=== PATIENT | female | born 1985 | race Caucasian/White ===

== ENCOUNTER 2016-09-29 15:24 | Emergency (ER) | payer SELFPAY ==
[2016-09-29 15:30] VITALS: BP 138/96
--- NOTE | 2016-09-29 16:40 | ER Document Report ---
ED GI/ - General Chief Complaint: Urinary Frequency Stated Complaint: URINARY ISSUE Notes: Patient is a 31-year-old female who presents with 2 days of burning during urination. She is 37 weeks by ultrasound and has had no care for this fetus. She plans to give the baby up for adoption, but is requesting a note that she is . She denies leakage of fluid, vaginal bleeding, flank pain, nausea, vomiting, headache, rash, fevers or abdominal pain. TRAVEL OUTSIDE OF THE [place] IN LAST 30 DAYS: No - Related Data Allergies/Adverse Reactions: No Known Allergies Allergy (Unverified 02/23/11 23:30) Past Medical History - General Information source: Patient - Social History Smoking Status: Unknown if Ever Smoked Family History: Reviewed & Not Pertinent Patient has suicidal ideation: No Patient has homicidal ideation: No Renal/ Medical History: Denies: Hx Peritoneal Dialysis Review of Systems - Review of Systems Notes: REVIEW OF SYSTEMS: CONSTITUTIONAL: -fevers, -chills EENT: -eye pain, -difficulty swallowing, -nasal congestion CARDIOVASCULAR:-chest pain, -syncope. RESPIRATORY: -cough, -SOB GASTROINTESTINAL: -abdominal pain, - nausea, -vomiting, -diarrhea GENITOURINARY: +dysuria, -hematuria MUSCULOSKELETAL: -back pain, -neck pain SKIN: -rash or skin lesions. HEMATOLOGIC: -easy bruising or bleeding. LYMPHATIC: -swollen, enlarged glands. NEUROLOGICAL: -altered mental status or loss of consciousness, -headache, - neurologic symptoms PSYCHIATRIC: -anxiety, -depression. ALL OTHER SYSTEMS REVIEWED AND NEGATIVE. Physical Exam - Vital signs Vitals: Temp Pulse Resp BP Pulse Ox 98.1 F 83 18 138/96 H 99 09/29/16 15:29 09/29/16 15:29 09/29/16 15:29 09/29/16 15:29 09/29/16 15:29 - Notes Notes: PHYSICAL EXAMINATION: GENERAL: Well-appearing, well-nourished and in no acute distress. HEAD: Atraumatic, normocephalic. EYES: Pupils equal round and reactive to light, extraocular movements intact, sclera anicteric, conjunctiva are normal. ENT: nares patent, oropharynx clear without exudates. Moist mucous membranes. NECK: Normal range of motion, supple without lymphadenopathy LUNGS: Breath sounds clear to auscultation bilaterally and equal. No wheezes rales or rhonchi. HEART: Regular rate and rhythm without murmurs ABDOMEN: Gravid abdomen, soft, nontender, normoactive bowel sounds. No guarding , no rebound. No masses appreciated. EXTREMITIES: Normal range of motion, no pitting or edema. No cyanosis. NEUROLOGICAL: Cranial nerves grossly intact. Normal speech, normal gait. Normal sensory, motor, and reflex exams. PSYCH: Normal mood, normal affect. SKIN: Warm, Dry, normal turgor, no rashes or lesions noted. Course - Re-evaluation Re-evalutation: Bedside ultrasound shows a single IUP consistent with estimated age. No abdominal tenderness, contractions, leakage of fluid or bleeding. With her dysuria and 30 wbc's on her urinalysis, will treat for presumed UTI. Given strict return precautions and told her to follow-up with OB. - Vital Signs Vital signs: Temp Pulse Resp BP Pulse Ox 98.1 F 81 18 138/96 H 98 09/29/16 15:43 09/29/16 15:43 09/29/16 15:43 09/29/16 15:43 09/29/16 15:43 - Laboratory Laboratory results interpreted by me: 09/29/16 17:18 Urine Ketones TRACE H Ur Leukocyte Esterase SMALL H Procedures - Ultrasound/Bedside Ultrasound/Bedside Time completed: 16:41 Ultrasound: Normal Notes: Single IUP with FHR 142, + movement Discharge - Discharge Clinical Impression: UTI (urinary tract infection) Qualifiers: Urinary tract infection type: site unspecified Hematuria presence: without hematuria Qualified Code(s): N39.0 - Urinary tract infection, site not specified Qualifiers: Weeks of gestation: 37 weeks Qualified Code(s): Z3A.37 - 37 weeks gestation of Condition: Good Disposition: HOME, SELF-CARE Additional Instructions: You are with an estimated gestational age of [id number] and must follow-up with OB. Take the full course antibiotics for your UTI. URINARY TRACT INFECTION: Your evaluation indicates that you have a urinary tract infection. This is due to germs growing in the bladder. This is a common problem. This infection usually responds quickly to antibiotics. Your antibiotic should be taken exactly as prescribed. Drink plenty of fluids -- three to four quarts a day. Occasionally, a bladder anesthetic will be prescribed to help stop the feeling of urgency until the antibiotic has a chance to clear the infection. This may cause your urine to be dark orange. Certain urine infections require a culture. If the doctor obtained a culture, the results will be back in two days. You should call to see if a change in treatment is needed. A repeat urinalysis after you finish treatment is often recommended. The physician will let you know if further testing is required. Call the doctor if you develop fever, chills, flank pain, inability to urinate, or blood in the urine. ANTIBIOTIC THERAPY: You have been given an antibiotic prescription. It's important that you take all the medication, unless instructed otherwise by your physician. Failure to complete the entire course can result in relapse of your condition. Common side effects of antibiotics include nausea, intestinal cramping, or diarrhea. Women may develop vaginal yeast infections, and babies can get yeast (thrush) in the mouth following the use of antibiotics. Contact your physician if you develop significant side effects from this medication. Allergy to this antibiotic can result in hives, wheezing, faintness, or itching. If symptoms of allergy occur, stop the medication and call the doctor. NITROFURANTOIN (MACRODANTIN, MACROBID): You have received a prescription for nitrofurantoin (Macrodantin). This antibiotic is used for urinary tract infections. Women who are or nursing should notify the physician before taking this medicine. If you have ever had a problem caused by this medication in the past, be sure the physician is aware of it. Common side effects of this medicine include nausea, vomiting, or decreased appetite. Notify your physician if these side effects become severe. Immediately stop this medicine and call the physician if you develop cough , shortness of breath, chest pain, weakness, jaundice (yellow color of the skin and whites of the eyes), or a skin rash. FOLLOW-UP CARE: If you have been referred to a physician for follow-up care, call the physician s office for an appointment as you were instructed or within the next two days. If you experience worsening or a significant change in your symptoms, notify the physician immediately or return to the Emergency Department at any time for re-evaluation. Prescriptions: Nitrofurantoin/Nitrofuran Mac [Macrobid 100 mg Capsule] 1 tab PO BID #10 capsule Referrals: MATIAS JARA MD [ACTIVE STAFF] - Follow up as needed
[2016-09-29 17:50] LABS: APPEARANCE,URINE SLIGHTLY-CLOUDY; BILIRUBIN,URINE NEGATIVE (NEGATIVE); GLUCOSE, URINE NEGATIVE (NEGATIVE); KETONES,URINE TRACE mg/dL (NEGATIVE); LEUKOCYTE ESTERASE,URINE SMALL (NEGATIVE); NITRITE,URINE NEGATIVE (NEGATIVE); PROTEIN,URINE NEGATIVE (NEGATIVE); UROBILINOGEN,URINE NEGATIVE mg/dL (<2.0)
== END 2016-09-29 18:00 | disposition home or self-care (01) ==
LOC: ER 15:24
DX: O23.43 Unspecified infection of urinary tract in pregnancy, third trimester (principal); R35.0 Frequency of micturition; R30.0 Dysuria; O09.33 Supervision of pregnancy with insufficient antenatal care, third trimester; Z3A.31 31 weeks gestation of pregnancy
CPT/HCPCS: 81001; 99283

== ENCOUNTER 2016-10-08 10:53 | Inpatient (IN) | payer SELFPAY ==
[2016-10-08] MEDS ORDERED: RINGERS SOLUTION,LACTATED 1,000 ML IV PRN ×2 (12:00→14:23)
[2016-10-08] MEDS ORDERED: ONDANSETRON HCL INJ/PF 4 MG/2 ML SDV IV ONE (12:02)
[2016-10-08 12:04] LABS: AMORPHOUS SEDIMENT,URINE TRACE /HPF; APPEARANCE,URINE TURBID; BILIRUBIN,URINE NEGATIVE (NEGATIVE); GLUCOSE, URINE NEGATIVE (NEGATIVE); KETONES,URINE NEGATIVE (NEGATIVE); LEUKOCYTE ESTERASE,URINE MODERATE (NEGATIVE); NITRITE,URINE NEGATIVE (NEGATIVE); PROTEIN,URINE NEGATIVE (NEGATIVE); URINE SPECIFIC GRAVITY 1.011; UROBILINOGEN,URINE NEGATIVE mg/dL (<2.0)
[2016-10-08 12:09] LABS: AMNISURE (ROM) NEGATIVE (NEGATIVE)
[2016-10-08 12:10] LABS: ABSOLUTE EOSINOPHILS # (AUTO) 0.1 10^3/uL (0.0-0.6); ABSOLUTE MONOCYTES (AUTO) 1.1 10^3/uL (0.1-1.4); ABSOLUTE NEUT (AUTO) 7.6 10^3/uL (1.7-8.2); BASOPHILS % (AUTO) 0.5 % (0-2); EOSINOPHILS % (AUTO) 1.1 % (0-6); HEMATOCRIT 32.7 % (36.0-47.0); HEMOGLOBIN 11.1 g/dL (12.0-15.5); HGB HCT DIFFERENCE 0.6; LYMPHOCYTES % (AUTO) 17.9 % (13-45); MEAN CORPUSCULAR HEMOGLOBIN 27.3 pg (27.0-33.4); MEAN CORPUSCULAR HGB CONC 33.8 g/dL (32.0-36.0); MEAN CORPUSCULAR VOLUME 81 fl (80-97); MONOCYTES % (AUTO) 10.2 % (3-13); RED BLOOD COUNT 4.04 10^6/uL (3.72-5.28); RED CELL DISTRIBUTION WIDTH 17.1 % (11.5-14.0); SEGMENTED NEUTROPHILS % (AUTO) 70.3 % (42-78); WHITE BLOOD COUNT 10.9 10^3/uL (4.0-10.5)
[2016-10-08] MEDS ORDERED: ONDANSETRON HCL INJ/PF 4 MG/2 ML SDV ONE (12:17)
[2016-10-08 12:20] LABS: URINE BARBITURATES SCREEN NEGATIVE; URINE METHADONE SCREEN NEGATIVE; URINE OPIATES LOW NEGATIVE; URINE PHENCYCLIDINE SCREEN NEGATIVE
[2016-10-08 12:56] LABS: ALCOHOL < 10 mg/dL (NONE DETECTED); RUBELLA IGG ANTIBODY 3.48 IU/mL
[2016-10-08 13:07] LABS: ALANINE AMINOTRANSFERASE 26 U/L (9-52); ALBUMIN 2.7 g/dL (3.5-5.0); ALKALINE PHOSPHATASE 261 U/L (38-126); ANION GAP 10 (5-19); ASPARTATE AMINO TRANSFERASE 23 U/L (14-36); BILIRUBIN,DIRECT 0.1 mg/dL (0.0-0.4); BILIRUBIN,TOTAL 0.4 mg/dL (0.2-1.3); BLOOD UREA NITROGEN 10 mg/dL (7-20); CALCIUM 9.6 mg/dL (8.4-10.2); CARBON DIOXIDE 20 mmol/L (22-30); CHLORIDE 106 mmol/L (98-107); CREATININE RESULT 0.59 mg/dL (0.52-1.25); GLUCOSE 78 mg/dL (75-110); POTASSIUM 4.2 mmol/L (3.6-5.0); SODIUM 135.8 mmol/L (137-145); TOTAL PROTEIN 5.5 g/dL (6.3-8.2)
[2016-10-08] MEDS ORDERED: OXYTOCIN/NORMAL SALINE 1,000 ML IV PRN ×2 (14:23→21:12)
[2016-10-08] MEDS ORDERED: PENICILLIN G POTASSIUM 5,000,000 UNIT in DEXTROSE 5%-WATER 100 ML IV ONE (14:25)
[2016-10-08 14:30] LABS: CHLAM PCR NOT DETECTED (NOT DETECT)
--- NOTE | 2016-10-08 14:57 | L&D Progress Notes ---
PROGRESS NOTES Datetime Report Generated by CPN: 10/08/2016 14:57 PROGRESS NOTE Comment: lab notified RN of + tania tx with 250 mg rocephin IM and 1g azithro PO VAGINAL EXAM Dilatation: 2 Effacement: 90 Station: -2 Contractions: irregular MEMBRANES Membranes: Intact FETUS A Estimated Weight (gm): 2240 Presentation: Vertex SIGNATURE SIGNATURE: [id number] Assignment: Radha Horowitz MD Signature: with User ID: Kameron : with User ID: [email or web address]
[2016-10-08] MEDS ORDERED: CEFTRIAXONE INJ 250 MG VIAL IM ONE (15:18)
[2016-10-08] MEDS ORDERED: AZITHROMYCIN INJ 500 MG VIAL IV ONE ×3 (15:18→19:00)
[2016-10-08] MEDS ORDERED: OXYTOCIN/NORMAL SALINE 0 UNIT/0 ML RTUINJ ONE (15:25)
[2016-10-08] MEDS ORDERED: PENICILLIN G-K 5 MILLION UNIT VIAL ONE ×2 (15:25→19:52)
[2016-10-08] MEDS ORDERED: CEFTRIAXONE INJ 1000 MG VIAL ONE (15:25)
[2016-10-08] MEDS ORDERED: LIDOCAINE 1% INJ-PF (10 MG/ML) 30 ML SDV ONE ×2 (15:36→17:50)
[2016-10-08] MEDS ORDERED: MISOPROSTOL 0.2 MG TABLET ONE (17:50)
[2016-10-08] MEDS ORDERED: OXYTOCIN/NORMAL SALINE 20 UNIT/1,000 ML RTUINJ ONE (17:50)
--- NOTE | 2016-10-08 18:02 | L&D General Admission ---
General Admit Datetime Report Generated by CPN: 10/08/2016 18:00 INFORMATION Patient Age: 31 (10/08/2016 10:53:QS system process) EDC: 10/14/2016 00:00 (10/08/2016 11:11:Madhavi Blackman RN) : 1 (10/08/2016 11:11:Madhavi Blackman RN) Para: 0 (10/08/2016 11:11:Madhavi Blackman RN) Term: 0 (10/08/2016 11:11:Madhavi Blackman RN) : 0 (10/08/2016 11:11:Madhavi Blackman RN) Spontaneous Abortions: 0 (10/08/2016 11:11:Madhavi Blackman RN) Induced Abortions: 0 (10/08/2016 11:11:Madhavi Blackman RN) Livin (10/08/2016 11:11:Madhavi Blackman RN) Cesareans: 0 (10/08/2016 11:11:Madhavi Blackman RN) VBACs: 0 (10/08/2016 11:11:Madhavi Blackman RN) Ectopic: 0 (10/08/2016 11:11:Madhavi Blackman RN) Multiple Births: 0 (10/08/2016 11:11:Madhavi Blackman RN) Baby, Number in Womb: 0 (10/08/2016 11:11:Madhavi Blackman RN) CARE Primary Professor Of Biblical Studies: Other-Annotate (10/08/2016 11:11:Madhavi Blackman RN) Professor Of Biblical Studies Other: No care (10/08/2016 11:11:Madhavi Blackman RN) Adequate Care: No (10/08/2016 11:11:Madhavi Blackman RN) Height (in): 61 (10/08/2016 15:55:QS system process) ALLERGIES Medication Allergy: No (10/08/2016 11:11:Madhavi Blackman RN) Medication Allergies: No Known Allergies (02/23/2011) (10/08/2016 10:53:QS system process) Latex Allergy: No Latex Allergies (10/08/2016 11:11:Madhavi Blackman RN) COMMUNICATION Primary Language: Slovenian (10/08/2016 11:11:Madhavi Blackman RN) Medical Tx Preferred Language: Slovenian (10/08/2016 11:11:Madhavi Blackman RN) DEMOGRAPHICS Address: [address] [place] [id number] (10/08/2016 10:53:QS system process) Zipcode: [id number] (10/08/2016 10:53:QS system process) Home (10/08/2016 10:53:QS system process) SSN: [id number] (10/08/2016 10:53:QS system process) Next of Kin Name: DECLINED PT (10/08/2016 10:53:QS system process) Next of Kin (10/08/2016 10:53:QS system process) Next of Kin Relationship: OR (10/08/2016 10:53:QS system process) Date of : 1985 (10/08/2016 10:53:QS system process) Marital Status: Single (10/08/2016 10:53:QS system process) Sex: Female (10/08/2016 10:53:QS system process) Race: (10/08/2016 10:53:QS system process) Ethnicity: Non- or (10/08/2016 10:53:QS system process) Methodist: None (10/08/2016 10:53:QS system process) DRUG AND ALCOHOL USE Alcohol: Yes (10/08/2016 11:11:Madhavi Blackman RN) Average Alcohol Consumption: <2 per day (10/08/2016 11:11:Madhavi Blackman RN) Advised to Stop Alcohol: Yes (10/08/2016 11:11:Madhavi Blackman RN) Alcohol Comments: Pt states she had a beer last night (10/08/2016 11:11:Madhavi Blackman RN) Cigarettes: Current Everyday Smoker. [id number] (10/08/2016 11:11:Madhavi Blackman RN) Average Cigarettes Smoked: > 10 per day (10/08/2016 11:11:Madhavi Blackman RN) Advised to Stop Smoking: Yes (10/08/2016 11:11:Madhavi Blackman RN) Marijuana: No (10/08/2016 11:11:Madhavi Blackman RN) Cocaine: No (10/08/2016 11:11:Madhavi Blackman RN) Other Illicit Drugs: No (10/08/2016 11:11:Madhavi Blackman RN) VACCINE HISTORY Influenza Vaccine: No (10/08/2016 11:11:Madhavi Blackman RN) Pneumococcal Vaccine: No (10/08/2016 11:11:Madhavi Blackman RN) Tetanus Vaccine: Yes (10/08/2016 11:11:Madhavi Blackman RN) Tdap Vaccine: No (10/08/2016 11:11:Madhavi Blackman RN) Hepatitis B Vaccine: Yes (10/08/2016 11:11:Madhavi Blackman RN) Pain Management Plans: Epidural (10/08/2016 11:11:Madhavi Blackman RN) Plans for Labor and Delivery: None (10/08/2016 11:11:Madhavi Blackman RN) LIVING SITUATION/DISCHARGE PLAN Living Arrangements: Homeless (10/08/2016 11:11:Madhavi Blackman RN) WIC Program: Needs referral (10/08/2016 11:11:Madhavi Blackman RN) Currently Using Commun Resources: No (10/08/2016 11:11:Madhavi Blackman RN) Outside Agency/Enrollment Specialist: No (10/08/2016 11:11:Madhavi Blackman RN) Car Seat for Discharge: N/A (10/08/2016 11:11:Madhavi Blackman RN) Adoption Requested: Yes (10/08/2016 11:11:Madhavi Blackman RN) Pt Contact w/infant Post : No (10/08/2016 11:11:Madhavi Blackman RN) LABS Blood Type: O Positive (10/08/2016 11:11:Madhavi Blackman RN) Antibody Screen: Negative (10/08/2016 11:11:Madhavi Blackman RN) Hemoglobin: 11.1 L (10/08/2016 11:51:QS system process) Hematocrit: 32.7 L (10/08/2016 11:51:QS system process) MCV: 81 (10/08/2016 11:51:QS system process) Group Beta Strep: Unknown (10/08/2016 11:11:Madhavi Blackman RN) Gonorrhea: Positive (10/08/2016 11:11:Madhavi Blackman RN) Chlamydia: Negative (10/08/2016 11:11:Madhavi Blackman RN) Rubella: NEGATIVE NEGATIVE IF LESS THAN OR EQUAL TO 9.99 IU/mL POSITIVE IF GREATER THAN OR EQUAL TO 10.0 IU/mL (10/08/2016 11:51:QS system process) Rubella Titer: 3.48 (10/08/2016 11:51:QS system process)
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
[2016-10-08] MEDS ORDERED: FENTANYL CITRATE INJ/PF 100 MCG/2 ML AMPUL ONE (18:04)
[2016-10-08] MEDS ORDERED: EPHEDRINE SULFATE INJ 50 MG/1 ML AMPULE ONE (18:05)
[2016-10-08] MEDS ORDERED: BUPIVACAINE HCL 0.25 % INJ/PF (2.5 MG/1 ML) 30 ML VIAL ONE (18:05)
[2016-10-08] MEDS ORDERED: PHENYLEPHRINE HCL INJ/PF 10 MG/1 ML SDV ONE (18:05)
[2016-10-08] MEDS ORDERED: FENTANYL/BUPIVACAINE/NS/PF 200 MCG/100 ML RTUINJ EPI ONE (18:05)
[2016-10-08] MEDS: PENICILLIN G POTASSIUM 2,500,000 UNIT in DEXTROSE 5%-WATER 50 ML IV SCH ×2 (19:59→22:58)
--- NOTE | 2016-10-08 20:01 | L&D Flow Sheet ---
LD Flowsheet Datetime Report Generated by CPN: 10/08/2016 20:00 Datetime: 10/08/2016 19:57 Vaginal Exam Dilatation (cm): 10.0 (Asad Godoy RN) Effacement (%): 100 (Asad Godoy RN) Station: 0 (Asad Godoy RN) Exam by: Tina Godoy RN (Asad Godoy RN) Vaginal Bleeding: Normal Show (Rucsandra Jayne, RN) Datetime: 10/08/2016 19:47 NBP Sys/Betzy/Mean (mmHg): 136 (QS system process) : 87 (QS system process) : 105 (QS system process) Pulse: 59 (QS system process) LaborFlag: Antepartum (QS system process) Datetime: 10/08/2016 19:45 Communication Communication: Call/Page Placed to Provider (Asad Godoy RN) Provider Notified (Name): DR Horowitz (Rucsandra Jayne, RN) Notification Reason: Status Update (Asad Careyahan, RN) Datetime: 10/08/2016 19:38 Patient Position/Activity: Right Lateral (Asad Godoy, RN) Datetime: 10/08/2016 19:37 Patient Care IV/Blood Work: IV Bolus Started (Asad Careyahan, RN) Datetime: 10/08/2016 19:36 Medications Pitocin (milliunit): Pitocin Decreased to (milliunits) @ 6 (Rucsandra Jayne, RN) Datetime: 10/08/2016 19:34 Vaginal Exam Dilatation (cm): 9.5 (Asad Godoy RN) Effacement (%): 100 (Asad Godoy RN) Station: 0 (Asad Godoy RN) Exam by: Tina Godoy RN (Asad Godoy RN) Vaginal Bleeding: Normal Show (Asad Godoy RN) Datetime: 10/08/2016 19:32 NBP Sys/Betzy/Mean (mmHg): 164 (QS system process) : 105 (QS system process) : 125 (QS system process) Pulse: 65 (QS system process) LaborFlag: Antepartum (QS system process) Datetime: 10/08/2016 19:27 Temperature (F): 97.7 (Madhavi Blackman RN) Temperature (C): 36.5 (QS system process) LaborFlag: Antepartum (QS system process) Datetime: 10/08/2016 19:25 Medications Pitocin (milliunit): Pitocin Remains (milliunits) @ 8 (Madhavi Blackman RN) Communication Comments: Report given to Kayden Godoy RN. Care relinquished @ this time. (Madhavi Blackman, ALEXANDRA) Datetime: 10/08/2016 19:17 NBP Sys/Betzy/Mean (mmHg): 153 (QS system process) : 107 (QS system process) : 126 (QS system process) Pulse: 68 (QS system process) LaborFlag: Antepartum (QS system process) Datetime: 10/08/2016 19:10 NBP Sys/Betzy/Mean (mmHg): 146 (QS system process) : 103 (QS system process) : 119 (QS system process) Pulse: 61 (QS system process) LaborFlag: Antepartum (QS system process) Datetime: 10/08/2016 19:00 Uterine Activity Monitor Mode: External (Madhavi Blackman, RN) Frequency (min): 2-2.5 (Madhavi Marhefka, RN) Quality: Moderate (Madhavi Marhefka, RN) Duration (sec): 60-120 (Madhavi Marhefka, RN) Resting Tone (Palpate): Relaxed (Madhavi Marhefka, RN) Assessment A Monitor Mode: External US (Madhavi Marhefka, RN) FHR Baseline Rate : 125 (Madhavi Marhefka, RN) FHR Baseline Changes: No Baseline Change (Madhavi Marhefka, RN) Variability: Moderate 6-25 bpm (Madhavi Marhefka, RN) Accelerations: None (Madhavi Marhefka, RN) Decelerations: Variable (Madhavi Marhefka, RN) Datetime: 10/08/2016 18:45 Uterine Activity Monitor Mode: External; Palpation (Madhavi Marhefka, RN) Frequency (min): 1-3 (Madhavi Marhefka, RN) Quality: Moderate to Strong (Madhavi Marhefka, RN) Duration (sec): 50-80 (Madhavi Marhefka, RN) Duration Criteria: More than Two 120 Second or Greater Contractions (Madhavi Marhefka, RN) Pattern: Normal: <= 5 Contractions in 10 Minutes (Madhavi Marhefka, RN) Resting Tone (Palpate): Relaxed (Madhavi Marhefka, RN) Assessment A Monitor Mode: External US; Auscultation (Madhavi Marhefka, RN) FHR Baseline Rate : 130 (Madhavi Marhefka, RN) FHR Baseline Changes: No Baseline Change (Madhavi Marhefka, RN) Variability: Moderate 6-25 bpm (Madhavi Marhefka, RN) Accelerations: 15X15 (Madhavi Marhefka, RN) Decelerations: Early (Madhavi Marhefka, RN) Patient Position/Activity: Left Lateral; Peanut Ball (Madhavi Marhefka, RN) Datetime: 10/08/2016 18:43 Vaginal Exam Dilatation (cm): 5.5 (Madhavi Blackman, RN) Effacement (%): 100 (Madhavi Blackman, RN) Station: -2 (Madhavi Blackman, ALEXANDRA) Exam by: Tina Blackman RN (Madhavi Blackman, ALEXANDRA) Datetime: 10/08/2016 18:40 NBP Sys/Betzy/Mean (mmHg): 116 (QS system process) : 88 (QS system process) : 98 (QS system process) Pulse: 67 (QS system process) LaborFlag: Antepartum (QS system process) Datetime: 10/08/2016 18:39 I/O Interventions: Orellana Cath Inserted (Madhavi Marhefka, RN) Datetime: 10/08/2016 18:35 NBP Sys/Betzy/Mean (mmHg): 120 (QS system process) : 80 (QS system process) : 96 (QS system process) Pulse: 55 (QS system process) LaborFlag: Antepartum (QS system process) Datetime: 10/08/2016 18:30 NBP Sys/Betzy/Mean (mmHg): 190 (QS system process) : 86 (QS system process) : 124 (QS system process) Pulse: 88 (QS system process) LaborFlag: Antepartum (QS system process) Datetime: 10/08/2016 18:29 Uterine Activity Monitor Mode: External; Palpation (Nena Camp, RNC) Frequency (min): 1-3 (Nena Camp, RNC) Quality: Moderate to Strong (Nena Camp, RNC) Duration (sec): 60-100 (Nena Camp, RNC) Duration Criteria: Less than Two 120 Second Contractions (Nena Camp, RNC) Pattern: Normal: <= 5 Contractions in 10 Minutes (Nena Camp, RNC) Resting Tone (Palpate): Relaxed (Nena Camp, RNC) Assessment A Monitor Mode: External US; Auscultation (Nena Camp, RNC) FHR Baseline Changes: Unable to Determine (Nena Camp, RNC) Comments: sitting for epidural, maternal hr tracing on monitor, RN at bedside attempting to locate (Nena Camp, RNC) Datetime: 10/08/2016 18:28 Epidural Procedure: Loading Dose (Madhavi Marhefka, RN) Datetime: 10/08/2016 18:27 NBP Sys/Betzy/Mean (mmHg): 151 (QS system process) : 86 (QS system process) : 109 (QS system process) Pulse: 75 (QS system process) LaborFlag: Antepartum (QS system process) Datetime: 10/08/2016 18:26 NBP Sys/Betzy/Mean (mmHg): 157 (QS system process) : 107 (QS system process) : 125 (QS system process) Pulse: 78 (QS system process) LaborFlag: Antepartum (QS system process) Datetime: 10/08/2016 18:25 Pulse: 79 (QS system process) SpO2 (%): 98 (QS system process) Epidural Procedure: Cath Placed (Madhavi Hiral, RN) Epidural Procedure: Test Dose (Madhavi Blackman, RN) LaborFlag: Antepartum (QS system process) Datetime: 10/08/2016 18:24 SpO2 (%): 94 (QS system process) LaborFlag: Antepartum (QS system process) Datetime: 10/08/2016 18:23 Procedure TIME OUT Procedure Verify: Correct Patient Identity; Correct Side and Site are Marked; Accurate Procedure Consent Form; Agreement on Procedure to be Done; Correct Patient Position; Relevant Images and Results are Properly Labeled and Displayed; Addressed Need to Administer Antibiotics or Fluids for Irrigation; Safety Precautions Based on Patient History or Medication Use (Madhavi Blackman RN) Anesthesia Anesthesia Plans: Epidural (Madhavi Blackman RN) Epidural Positioning: Sitting (Madhavi Marhefka, RN) Datetime: 10/08/2016 18:19 Procedure TIME OUT Procedure Verify: Correct Patient Identity; Correct Side and Site are Marked; Accurate Procedure Consent Form; Agreement on Procedure to be Done; Correct Patient Position; Relevant Images and Results are Properly Labeled and Displayed; Addressed Need to Administer Antibiotics or Fluids for Irrigation; Safety Precautions Based on Patient History or Medication Use (Madhavi Blackman RN) Anesthesia Anesthesia Plans: Epidural (Madhavi Blackman RN) Epidural Positioning: Sitting (Madhavi Marhefka, RN) Anesthesia Comments: Dr. Linnetteightshead @ bedside (Madhavi Missyhefgrace, RN) Datetime: 10/08/2016 18:15 Uterine Activity Monitor Mode: External; Palpation (Madhavi Louishefgrace, RN) Frequency (min): 1-4 (Madhavi Lewisfgrace, RN) Quality: Moderate (Madhavi Louishefgrace, RN) Duration (sec): 80-110 (Madhavi Lewisfgrace, RN) Resting Tone (Palpate): Relaxed (Madhavi Marhefka, RN) Assessment A Monitor Mode: External US (Madhavi Marhefka, RN) FHR Baseline Rate : 115 (Madhavi Marhefka, RN) FHR Baseline Changes: No Baseline Change (Madhavi Marhefka, RN) Variability: Moderate 6-25 bpm (Madhavi Marhefka, RN) Accelerations: 15X15 (Madhavi Marhefka, RN) Decelerations: Early (Madhavi Marhefka, RN) Datetime: 10/08/2016 18:00 Uterine Activity Monitor Mode: External; Palpation (Nena Camp, RNC) Uterine Activity Monitor Mode: External (Madhavi Marhefka, RN) Frequency (min): 1-4 (Nena Camp, RNC) Frequency (min): 2-3 (Madhavi Marhefka, RN) Quality: Moderate to Strong (Nena Camp, RNC) Quality: Moderate (Madhavi Marhefka, RN) Duration (sec): 60-180 (Nena Camp, RNC) Duration (sec): 60-100 (Madhavi Marhefka, RN) Duration Criteria: More than Two 120 Second or Greater Contractions (Nena Camp, RNC) Pattern: Normal: <= 5 Contractions in 10 Minutes (Nena Camp, RNC) Resting Tone (Palpate): Relaxed (Nena Camp, RNC) Resting Tone (Palpate): Relaxed (Madhavi Marhefka, RN) Assessment A Monitor Mode: External US (Madhavi Marhefka, RN) FHR Baseline Rate : 115 (Madhavi Marhefka, RN) FHR Baseline Changes: No Baseline Change (Madhavi Marhefka, RN) Variability: Moderate 6-25 bpm (Madhavi Marhefka, RN) Accelerations: None (Madhavi Marhefka, RN) Decelerations: Early (Madhavi Marhefka, RN) Datetime: 10/08/2016 17:50 Comments: involuntarily pushing, writhing RN remains at bedside coaching and assisting pt in maintaining control. Pt unable to follow simple commands, c/onausea and emesis x2. Cool cloth to forehead (Nena Camp, RNC) Vaginal Exam Dilatation (cm): 5.0 (Nena Camp, RNC) Effacement (%): 100 (Nena Camp, RNC) Station: -1 (Nena Camp, RNC) Exam by: Camp, S (Nena Camp, RNC) Datetime: 10/08/2016 17:47 Patient Position/Activity: HOB Lowered; Left Lateral (Nena Camp, RNC) Hygiene: Deja Care; Underpad Changed; Linens Changed (Nena Camp, RNC) Datetime: 10/08/2016 17:45 Uterine Activity Monitor Mode: External; Palpation (Nena Camp, RNC) Frequency (min): 1-4 (Nena Camp, RNC) Quality: Moderate (Nena Camp, RNC) Duration (sec): 50-90 (Nena Camp, RNC) Duration Criteria: More than Two 120 Second or Greater Contractions (Nena Camp, RNC) Pattern: Normal: <= 5 Contractions in 10 Minutes (Nena Camp, RNC) Resting Tone (Palpate): Relaxed (Nena Camp, RNC) Assessment A Monitor Mode: External US; Auscultation (Nena Camp, RNC) FHR Baseline Rate : 115 (Nena Camp, RNC) Variability: Moderate 6-25 bpm (Nena Camp, RNC) Accelerations: None (Nena Camp, RNC) Decelerations: Early (Nena Camp, RNC) Medications Pitocin (milliunit): Pitocin Remains (milliunits) @ (Annotations: 8) (Nena Camp, RNC) Datetime: 10/08/2016 17:30 Uterine Activity Monitor Mode: External; Palpation (Nena Camp, RNC) Frequency (min): 1-4 (Nena Camp, RNC) Quality: Moderate (Nena Camp, RNC) Duration (sec): 40-100 (Nena Camp, RNC) Duration Criteria: Less than Two 120 Second Contractions (Nena Camp, RNC) Pattern: Normal: <= 5 Contractions in 10 Minutes (Nena Camp, RNC) Resting Tone (Palpate): Relaxed (Nena Camp, RNC) Assessment A Monitor Mode: External US; Auscultation (Nena Camp, RNC) FHR Baseline Rate : 115 (Nena Camp, RNC) Variability: Moderate 6-25 bpm (Nena Camp, RNC) Accelerations: 15X15 (Nena Camp, RNC) Decelerations: Early (Nena Camp, RNC) Medications Pitocin (milliunit): Pitocin Remains (milliunits) @ (Annotations: 8) (Nena Camp, RNC) Datetime: 10/08/2016 17:25 Antibiotics: Start Antibiotics; Zithromax (Nena Camp, RNC) Medication Comments: 500mg iv given (Nena Camp, RNC) Datetime: 10/08/2016 17:20 Patient Care Comments: RN at bedside toco adjusted, abdomen palpates moderate with relaxation noted (Nena Camp, RNC) Datetime: 10/08/2016 17:15 Uterine Activity Monitor Mode: External; Palpation (Madhavi Marhefka, RN) Frequency (min): 3-5 (Madhavi Marhefka, RN) Quality: Mild/Moderate (Madhavi Marhefka, RN) Duration (sec): 70-160 (Madhavi Marhefka, RN) Resting Tone (Palpate): Relaxed (Madhavi Marhefka, RN) Assessment A Monitor Mode: External US (Madhavi Marhefka, RN) FHR Baseline Rate : 125 (Madhavi Marhefka, RN) FHR Baseline Changes: No Baseline Change (Madhavi Marhefka, RN) Variability: Moderate 6-25 bpm (Madhavi Marhefka, RN) Accelerations: 15X15 (Madhavi Marhefka, RN) Decelerations: None (Madhavi Marhefka, RN) Medications Pitocin (milliunit): Pitocin Remains (milliunits) @ (Annotations: 8) (Madhavi Joshuafka, RN) Datetime: 10/08/2016 17:14 Pain Pain Scale: 5 (Nena Camp, RNC) Pain Coping: Writhing; Other (Nena Boissevain, RNC) Pain Assessment Comments: Dr Horowitz at bedside, pt screaming and writhing in bed c/o vaginal leaking SROM noted with clear fluid, Dr Horowitz at bedside with rupture and aware. RN and provider attempting to reassure and assist pt in regaining control (Nena Camp, RNC) Communication Communication: RN at Bedside; Provider at Bedside ([facility]) LaborFlag: Antepartum (QS system process) Datetime: 10/08/2016 17:03 Vaginal Exam Dilatation (cm): 2.5 (Madhavi Blackman RN) Effacement (%): 90 (Madhavi Blackman RN) Station: -2 (Madhavi Blackman RN) Exam by: Tina Blackman RN (Madhavi Blackman RN) Patient Care Comments: Pt screaming, rolling all over in the bed. (Madhavi Blackman RN) Datetime: 10/08/2016 17:00 Uterine Activity Monitor Mode: External (Madhavi Marhefka, RN) Frequency (min): 2-5 (Madhavi Marhefka, RN) Quality: Mild (Madhavi Marhefka, RN) Duration (sec): 60-120 (Madhavi Marhefka, RN) Resting Tone (Palpate): Relaxed (Madhavi Marhefka, RN) Assessment A Monitor Mode: External US (Madhavi Marhefka, RN) FHR Baseline Rate : 125 (Madhavi Marhefka, RN) FHR Baseline Changes: No Baseline Change (Madhavi Marhefka, RN) Variability: Moderate 6-25 bpm (Madhavi Marhefka, RN) Accelerations: 15X15 (Madhavi Marhefka, RN) Decelerations: None (Madhavi Marhefka, RN) Medications Pitocin (milliunit): Pitocin Increased to (milliunits) @ (Annotations: 8) (Madhavi Marhefka, RN) Datetime: 10/08/2016 16:54 I/O Interventions: Up to BR (Madhavi Marhefka, RN) Datetime: 10/08/2016 16:45 Uterine Activity Monitor Mode: External (Madhavi Marhefka, RN) Frequency (min): 5-9 (Madhavi Marhefka, RN) Quality: Mild (Madhavi Marhefka, RN) Duration (sec): 130-180 (Madhavi Marhefka, RN) Resting Tone (Palpate): Relaxed (Madhavi Marhefka, RN) Assessment A Monitor Mode: External US (Madhavi Marhefka, RN) FHR Baseline Rate : 125 (Madhavi Marhefka, RN) FHR Baseline Changes: No Baseline Change (Madhavi Marhefka, RN) Variability: Moderate 6-25 bpm (Madhavi Marhefka, RN) Accelerations: 15X15 (Madhavi Marhefka, RN) Decelerations: None (Madhavi Marhefka, RN) Medications Pitocin (milliunit): Pitocin Increased to (milliunits) @ (Annotations: 6) (Madhavi Marhefka, RN) Datetime: 10/08/2016 16:30 Uterine Activity Monitor Mode: External (Madhavi Marhefka, RN) Frequency (min): 4-7 (Madhavi Marhefka, RN) Quality: Mild (Madhavi Marhefka, RN) Duration (sec): 70-160 (Madhavi Joshuafgrace, RN) Resting Tone (Palpate): Relaxed (Madhavi Marhefka, RN) Assessment A Monitor Mode: External US (Madhavi Marhefka, RN) FHR Baseline Rate : 125 (Madhavi Marhefka, RN) FHR Baseline Changes: No Baseline Change (Madhavi Marhefka, RN) Variability: Moderate 6-25 bpm (Madhavi Marhefka, RN) Accelerations: 15X15 (Madhavi Marhefka, RN) Decelerations: None (Madhavi Marhefka, RN) Medications Pitocin (milliunit): Pitocin Remains (milliunits) @ (Annotations: 4) (Madhavi Marhefka, RN) Datetime: 10/08/2016 16:22 Communication Comments: Discharge planning @ bedside. (Madhavi Joshuacarmengrace, RN) Datetime: 10/08/2016 16:16 I/O Interventions: Up to BR (Madhavi Hiral, RN) Datetime: 10/08/2016 16:15 Uterine Activity Monitor Mode: External; Palpation (Madhavi Marhefka, RN) Frequency (min): X2 (Madhavi Marhefka, RN) Quality: Mild (Madhavi Marhefka, RN) Duration (sec): 150-160 (Madhavi Marhefka, RN) Resting Tone (Palpate): Relaxed (Madhavi Marhefka, RN) Assessment A Monitor Mode: External US (Madhavi Marhefka, RN) FHR Baseline Rate : 115 (Madhavi Marhefka, RN) FHR Baseline Changes: No Baseline Change (Madhavi Marhefka, RN) Variability: Moderate 6-25 bpm (Madhavi Marhefka, RN) Accelerations: 15X15 (Madhavi Marhefka, RN) Decelerations: None (Madhavi Marhefka, RN) Medications Pitocin (milliunit): Pitocin Increased to (milliunits) @ (Annotations: 4) (Madhavi Marhefka, RN) Datetime: 10/08/2016 16:00 Uterine Activity Monitor Mode: External; Palpation (Madhavi Marhefka, RN) Frequency (min): X2 (Madhavi Marhefka, RN) Quality: Mild (Madhavi Marhefka, RN) Duration (sec): 60-110 (Madhavi Marhefka, RN) Resting Tone (Palpate): Relaxed (Madhavi Marhefka, RN) Assessment A Monitor Mode: External US (Madhavi Marhefka, RN) FHR Baseline Rate : 115 (Madhavi Marhefka, RN) FHR Baseline Changes: No Baseline Change (Madhavi Marhefka, RN) Variability: Moderate 6-25 bpm (Madhavi Joshuafka, RN) Accelerations: 15X15 (Madhavi Marisaacfka, RN) Decelerations: None (Madhavi Joshuafka, RN) Datetime: 10/08/2016 15:54 Antibiotics: Penicillin IV (Units) @ 5 million units (Madhavi Joshuafka, RN) Datetime: 10/08/2016 15:50 Medication Comments: 250 mg Rocephin given IM Lt vastus lateralis (Madhavi Joshuafka, RN) Datetime: 10/08/2016 15:47 Medications Pitocin (milliunit): Pitocin Started (milliunits) @ 2 (Madhavi Marhefka, RN) Datetime: 10/08/2016 15:44 I/O Interventions: Up to BR (Madhavi Marhefka, RN) Datetime: 10/08/2016 15:30 Uterine Activity Monitor Mode: External (Madhavi Marhefka, RN) Frequency (min): 6-8 (Madhavi Marhefka, RN) Quality: Mild (Madhavi Marhefka, RN) Duration (sec): 60-100 (Madhavi Marhefka, RN) Resting Tone (Palpate): Relaxed (Madhavi Marhefka, RN) Assessment A Monitor Mode: External US (Madhavi Marhefka, RN) FHR Baseline Rate : 115 (Madhavi Marhefka, RN) FHR Baseline Changes: No Baseline Change (Madhavi Marhefka, RN) Variability: Moderate 6-25 bpm (Madhavi Marhefka, RN) Accelerations: 15X15 (Madhavi Marhefka, RN) Decelerations: None (Madhavi Marhefka, RN) Datetime: 10/08/2016 15:05 I/O Interventions: Up to BR (Madhavi Marhefka, RN) Datetime: 10/08/2016 15:02 Patient Care Comments: Pt vomiting (Madhavi Marhefka, RN) Datetime: 10/08/2016 15:00 Uterine Activity Monitor Mode: External (Madhavi Marhefka, RN) Frequency (min): X1 (Madhavi Marhefka, RN) Quality: Mild (Madhavi Marhefka, RN) Duration (sec): 140 (Madhavi Marhefka, RN) Resting Tone (Palpate): Relaxed (Madhavi Marhefka, RN) Assessment A Monitor Mode: External US (Madhavi Marhefka, RN) FHR Baseline Rate : 115 (Madhavi Marhefka, RN) FHR Baseline Changes: No Baseline Change (Madhavi Marhefka, RN) Variability: Moderate 6-25 bpm (Madhavi Marhefka, RN) Accelerations: 15X15 (Madhavi Marhefka, RN) Decelerations: None (Madhavi Marhefka, RN) Datetime: 10/08/2016 14:59 Teaching Unit Routine: Consents Signed (Madhavi Marhefka, RN) Datetime: 10/08/2016 13:48 Patient Care Comments: Pt OOB to shower (Madhavi Marhefka, RN) Datetime: 10/08/2016 13:47 Uterine Activity Monitor Mode: External (Madhavi Marhefka, RN) Frequency (min): X1 (Madhavi Marhefka, RN) Quality: Mild (Madhavi Marhefka, RN) Duration (sec): 140 (Madhavi Marhefka, RN) Resting Tone (Palpate): Relaxed (Madhavi Marhefka, RN) Assessment A Monitor Mode: External US (Madhavi Marhefka, RN) FHR Baseline Rate : 115 (Madhavi Marhefka, RN) FHR Baseline Changes: No Baseline Change (Madhavi Marhefka, RN) Variability: Moderate 6-25 bpm (Madhavi Marhefka, RN) Accelerations: 15X15 (Madhavi Marhefka, RN) Decelerations: None (Madhavi Marhefka, RN) Datetime: 10/08/2016 13:46 NBP Sys/Betzy/Mean (mmHg): 149 (QS system process) : 85 (QS system process) : 109 (QS system process) Pulse: 69 (QS system process) LaborFlag: Antepartum (QS system process) Datetime: 10/08/2016 13:40 Communication Comments: H. Mark, CNM @ bedside discussing admission for induction of labor for IUGR with patient. Patient in agreement to POC. (Madhavi Blackman RN) Datetime: 10/08/2016 13:30 Uterine Activity Monitor Mode: External (Madhavi Marhefka, RN) Frequency (min): Irregular (Madhavi Marhefka, RN) Quality: Mild (Madhavi Marhefka, RN) Duration (sec): 90 (Madhavi Marhefka, RN) Resting Tone (Palpate): Relaxed (Madhavi Marhefka, RN) Assessment A Monitor Mode: External US (Madhavi Marhefka, RN) FHR Baseline Rate : 115 (Madhavi Marhefka, RN) FHR Baseline Changes: No Baseline Change (Madhavi Marhefka, RN) Variability: Moderate 6-25 bpm (Madhavi Marhefka, RN) Accelerations: 15X15 (Madhavi Marhefka, RN) Decelerations: None (Madhavi Marhefka, RN) Datetime: 10/08/2016 13:21 NBP Sys/Betzy/Mean (mmHg): 162 (QS system process) : 100 (QS system process) : 124 (QS system process) Pulse: 70 (QS system process) LaborFlag: Antepartum (QS system process) Datetime: 10/08/2016 13:00 Uterine Activity Monitor Mode: External (Madhavi Marhefka, RN) Frequency (min): Irregular (Madhavi Marhefka, RN) Quality: Mild (Madhavi Marhefka, RN) Duration (sec): 100-130 (Madhavi Marhefka, RN) Resting Tone (Palpate): Relaxed (Madhavi Marhefka, RN) Assessment A Monitor Mode: External US (Madhavi Marhefka, RN) FHR Baseline Rate : 115 (Madhavi Marhefka, RN) FHR Baseline Changes: No Baseline Change (Madhavi Marhefka, RN) Variability: Moderate 6-25 bpm (Madhavi Marhefka, RN) Accelerations: 15X15 (Madhavi Marhefka, RN) Decelerations: None (Madhavi Marhefka, RN) Datetime: 10/08/2016 12:50 NBP Sys/Betzy/Mean (mmHg): 138 (QS system process) : 98 (QS system process) : 114 (QS system process) Pulse: 72 (QS system process) LaborFlag: Antepartum (QS system process) Datetime: 10/08/2016 12:36 I/O Interventions: Up to BR (Madhavi Marhefka, RN) Datetime: 10/08/2016 12:23 Antiemetics/Antacids: Zofran IV (mg) @ 4 (Madhavi Mottaka, RN) Patient Care IV/Blood Work: IV Bolus Given ml @ 1000 ml @ 999ml/hr (Madhavi Kaliaka, RN) Datetime: 10/08/2016 12:20 NBP Sys/Betzy/Mean (mmHg): 132 (QS system process) : 94 (QS system process) : 109 (QS system process) Pulse: 70 (QS system process) LaborFlag: Antepartum (QS system process) Datetime: 10/08/2016 12:01 Uterine Activity Monitor Mode: External; Palpation (Madhavi Blackman RN) Frequency (min): X2 (Madhavi Blackman RN) Quality: Mild (Madhavi Blackman RN) Duration (sec): 100-220 (Madhavi Blackman RN) Resting Tone (Palpate): Relaxed (Madhavi Blackman RN) Patient Care Comments: ultrasound @ bedside. (Madhavi Blackman RN) Datetime: 10/08/2016 12:00 Assessment A Monitor Mode: External US (Madhavi Marhefka, RN) FHR Baseline Rate : 120 (Madhavi Marhefka, RN) FHR Baseline Changes: No Baseline Change (Madhavi Marhefka, RN) Variability: Moderate 6-25 bpm (Madhavi Marhefka, RN) Accelerations: 15X15 (Madhavi Marhefka, RN) Decelerations: None (Madhavi Marhefka, RN) Datetime: 10/08/2016 11:46 Patient Care Comments: Pt vomiting (Madhavi Marhefka, RN) Datetime: 10/08/2016 11:45 Patient Care IV/Blood Work: Labs Drawn (Madhavi Marhomero, RN) Datetime: 10/08/2016 11:43 Nausea/Vomiting: Present (Madhavi Marhomero, RN) Patient Care Comments: GBS culture obtained (Madhavi Hiral, RN) Datetime: 10/08/2016 11:30 Uterine Activity Monitor Mode: External; Palpation (Madhavi Marhefka, RN) Frequency (min): No ctxs noted (Madhavi Marhefka, RN) Quality: Mild (Madhavi Marhefka, RN) Resting Tone (Palpate): Relaxed (Madhavi Marhefka, RN) Assessment A Monitor Mode: External US (Madhavi Marhefka, RN) FHR Baseline Rate : 120 (Madhavi Marhefka, RN) FHR Baseline Changes: No Baseline Change (Madhavi Marhefka, RN) Variability: Moderate 6-25 bpm (Madhavi Marhefka, RN) Accelerations: None (Madhavi Marhefka, RN) Decelerations: None (Madhavi Marhefka, RN) Datetime: 10/08/2016 11:21 Temperature (F): 98.2 (Madhavi Blackman RN) Temperature (C): 36.8 (QS system process) LaborFlag: Antepartum (QS system process) Datetime: 10/08/2016 11:20 Pain Pain Scale: 4 (Madhavi Blackman RN) Pain Presence: Intermittent (Madhavi Blackman RN) Pain Type: Contraction (Madhavi Blackman RN) Pain Location: Abdomen (Madhavi Blackman RN) Pain Goal: 0 (Madhavi Blackman RN) Pain Relief Measures: Comfort Measures (Madhavi Blackman RN) Pain Coping: Breathing Through Contractions; Crying (Madhavi Blackman RN) Vaginal Bleeding: None (Madhavi Blackman RN) Maternal Assessment Level of Consciousness: Fully Conscious (Madhavi Marhefka, RN) DTR's/Clonus: DTRs 2+; No Clonus (Madhavi Marhefka, RN) Headache: Denies (Madhavi Marhefka, RN) Breath Sounds, Left: Clear and Equal (Madhavi Marhefka, RN) Breath Sounds, Right: Clear and Equal (Madhavi Marhefka, RN) Nausea/Vomiting: Present (Madhavi Marhefka, RN) RUQ Epigastric Pain: Denies (Madhavi Marhefka, RN) LaborFlag: Antepartum (QS system process) Datetime: 10/08/2016 11:17 NBP Sys/Betzy/Mean (mmHg): 143 (QS system process) : 95 (QS system process) : 114 (QS system process) Pulse: 57 (QS system process) LaborFlag: Antepartum (QS system process) Datetime: 10/08/2016 11:16 Patient Position/Activity: Right Lateral; Semi-Fowlers (Madhavi Marhefka, RN) Datetime: 10/08/2016 11:13 Vaginal Exam Dilatation (cm): 1.0 (Madhavi Marhefka, RN) Effacement (%): 90 (Madhavi Marhefka, RN) Station: -1 (Madhavi Marhefka, RN) Exam by: HDragan Flores, RN (Madhavi Marhefka, RN) Datetime: 10/08/2016 11:11 Patient Care Comments: Pt vomiting (Madhavimelissa Blackman, RN) Datetime: 10/08/2016 11:00 Vital Signs Stage of : Antepartum (Madhavi Hiral, RN)
[2016-10-08] MEDS ORDERED: DIPH/PERTUSS(ACELL)/TETANUS VAC/PF 0.5 ML SYR (>=10YO) IM PRN (21:12)
[2016-10-08] MEDS ORDERED: ZOLPIDEM TARTRATE 5 MG TABLET PO PRN (21:12)
[2016-10-08] MEDS ORDERED: BENZOCAINE/MENTHOL AEROSOL SPRAY 56 ML TOP PRN (21:12)
[2016-10-08] MEDS ORDERED: DIBUCAINE 1% OINTMENT 28 GM TP PRN (21:12)
[2016-10-08] MEDS ORDERED: MEASLES,MUMPS&RUBELLA VACC/PF 0.5 ML VIAL SUBCUT PRN (21:12)
[2016-10-08] MEDS ORDERED: ACETAMINOPHEN WITH CODEINE #3 TABLET PO PRN ×2 (21:12)
--- NOTE | 2016-10-08 21:59 | Delivery Summary ---
Del Sum A-C Datetime Report Generated by CPN: 10/08/2016 21:59 DELIVERY PERSONNEL DELIVERY PERSONNEL: [phone] Delivery Doctor:: Radha Horowitz MD Labor and Delivery Nurse:: Asad Godoy RN Labor and Delivery Nurse:: Subha Chavarria RN Nursery Nurse:: Rosi Wing RN Moss Picker/MANAGER OF PURCHASING: Russell Spangler, MANAGER OF PURCHASING MATERNAL INFORMATION Delivery Anesthesia: Epidural Medications After Delivery: Pitocin Bolus-Please Comment; Pitocin Drip 20 Units/1000ml NSS Meds After Delivery Comment: NS With Pitocin 20 Units/Liter IVF bolus per protocol Estimated Blood Loss (ml): 350 Maternal Complications: Other Other Maternal Complications: No PNC, ETOH abuse throughout , homeless, plans to give baby up for adoption, positive for gonorrhea, severe IUGR on ultrasound Provider Comments: over intact perineum. live female ap 8/9. spontaneous intact placenta 3vc. Infant to NBN LABOR SUMMARY EDC: 10/14/2016 00:00 No. Babies in Womb: 1 Attempted: No Labor Anesthesia: Epidural LABOR INFORMATION Reason for Induction: Intrauterine Growth Retardation Onset of Labor: 10/08/2016 15:47 Complete Dilatation: 10/08/2016 19:57 Oxytocin: Augmentation Group B Beta Strep: Unknown Antibiotics # of Doses: 2 Antibiotics Time of Last Dose: 1958 Name of Antibiotic Given: Penicillin Steroids Given: None Reason Steroids Not Administered: Not Applicable MEMBRANES Membranes Rupture Method: Spontaneous Rupture of Membranes: 10/08/2016 17:14 Length of Rupture (hr): 3.68 Amniotic Fluid Color: Clear Amniotic Fluid Amount: Moderate STAGES OF LABOR Stage 1 hr: 4 Stage 1 min: 10 Stage 2 hr: 0 Stage 2 min: 58 Stage 3 hr: 0 Stage 3 min: 5 Total Time in Labor hr: 5 Total Time in Labor min: 13 VAGINAL DELIVERY Episiotomy: None Laceration Extension: N/A Laceration Type: None Laceration Repair: Not Applicable Sponge Count Correct: N/A Sharps Count Correct: N/A CSECTION DELIVERY Primary Indication: N/A Secondary Indication: N/A CSection Urgency: N/A CSection Incidence: N/A Labor: N/A Elective: N/A CSection Incision: N/A BABY A INFORMATION Infant Delivery Date/Time: 10/08/2016 20:55 Method of Delivery: Vaginal Born in Route : No : N/A Forceps: N/A Vacuum Extraction: N/A Shoulder Dystocia : No PRESENTATION/POSITION BABY A Presentation: Cephalic Cephalic Presentation: Vertex Vertex Position: Left Occipital Anterior Breech Presentation: N/A PLACENTA INFORMATION BABY A Placenta Delivery Time : 10/08/2016 21:00 Placenta Method of Delivery: Spontaneous Placenta Status: Delivered SCORES BABY A Heart Rate 1 min: >100 bpm Resp Effort 1 min: Good Cry Reflex Irritability 1 min: Cough or Sneeze or Pulls Away Muscle Tone 1 min: Active Motion Color 1 min: Blue/Pale Resuscitation Effort 1 min: Tactile Stimulation SCORE 1 MIN: 8 Heart Rate 5 min: >100 bpm Resp Effort 5 min: Good Cry Reflex Irritability 5 min: Cough or Sneeze or Pulls Away Muscle Tone 5 min: Active Motion Color 5 min: Body [place], Extremities Blue SCORE 5 MIN: 9 INFORMATION BABY A Gestational Age at Delivery: 39.1 Gestational Status: Full Term- 39- 40.6 Weeks Infant Outcome : Liveborn Infant Condition : Stable Infant Sex: Female IDENTIFICATION BABY A Verification Date/Time: 10/08/2016 21:11 ID Band Number: [id number] Mother's Name Verified: Yes Infant RN Verifying Infant: K Deon RN Additional Verifying Personnel: D Aamir US WEIGHT/LENGTH BABY A Infant Birthweight (gm): 2360 Infant Weight (lb): 5 Weight (oz): 3 Infant Length (in): 18.25 Infant Length (cm): 46.36 CORD INFORMATION BABY A No. Cord Vessels: 3 Nuchal Cord : N/A Cord Blood Taken: Yes-For Storage (Mom's Blood type +) Infant Suction: Mouth ASSESSMENT BABY A Complications: Multiple Variable Decels; Meconium Infant Complications- Other: meconium fluid noted at delivery Physical Findings at Delivery: Other Physical Findings- Other: see nursery notes Respirations: Appears Normal Skin to Skin: No Bus Washer/ALS Called : No Care By: Kayden Wing RN Transferred To: Nursery BABY B INFORMATION : N/A SIGNATURES Signature: with User ID: [email or web address]
[2016-10-08] MEDS ORDERED: IBUPROFEN 800 MG TABLET ONE (22:31)
[2016-10-08] MEDS: IBUPROFEN 800 MG TABLET PO SCH (22:33)
[2016-10-08 22:52] LABS: ADD HIVPANEL? NO; HIV (1 AND 2) ANTIBODY NEGATIVE (NEGATIVE)
--- NOTE | 2016-10-09 04:48 | L&D General Admission ---
General Admit Datetime Report Generated by CPN: 10/09/2016 04:45 INFORMATION Patient Age: 31 (10/08/2016 10:53:QS system process) EDC: 10/14/2016 00:00 (10/08/2016 11:11:Madhavi Blackman RN) : 1 (10/08/2016 11:11:Madhavi Blackman RN) Para: 0 (10/08/2016 11:11:Madhavi Blackman RN) Term: 0 (10/08/2016 11:11:Madhavi Blackman RN) : 0 (10/08/2016 11:11:Madhavi Blackman RN) Spontaneous Abortions: 0 (10/08/2016 11:11:Madhavi Blackman RN) Induced Abortions: 0 (10/08/2016 11:11:Madhavi Blackman RN) Livin (10/08/2016 11:11:Madhavi Blackman RN) Cesareans: 0 (10/08/2016 11:11:Madhavi Blackman RN) VBACs: 0 (10/08/2016 11:11:Madhavi Blackman RN) Ectopic: 0 (10/08/2016 11:11:Madhavi Blackman RN) Multiple Births: 0 (10/08/2016 11:11:Madhavi Blackman RN) Baby, Number in Womb: 1 (10/08/2016 11:11:Leonor Richardson RN) CARE Primary Adult Literacy Teacher: Other-Annotate (10/08/2016 11:11:Madhavi Blackman RN) Adult Literacy Teacher Other: No care (10/08/2016 11:11:Madhavi Blackman RN) Adequate Care: No (10/08/2016 11:11:Madhavi Blackman RN) Height (in): 61 (10/08/2016 23:48:QS system process) Height (in): 61 (10/08/2016 15:55:QS system process) Height (in): 61 (10/08/2016 12:35:QS system process) Height (in): 61 (10/08/2016 11:24:QS system process) ALLERGIES Medication Allergy: No (10/08/2016 11:11:Madhavi Blackman RN) Medication Allergies: No Known Allergies (02/23/2011) (10/08/2016 10:53:QS system process) Latex Allergy: No Latex Allergies (10/08/2016 11:11:Madhavi Blackman RN) COMMUNICATION Primary Language: Thai (10/08/2016 11:11:Madhavi Blackman RN) Medical Tx Preferred Language: Thai (10/08/2016 11:11:Madhavi Blackman RN) DEMOGRAPHICS Address: [address] [place] [id number] (10/08/2016 10:53:QS system process) Zipcode: [address] (10/08/2016 10:53:QS system process) Home (10/08/2016 10:53:QS system process) SSN: [id number] (10/08/2016 10:53:QS system process) Next of Kin Name: DECLINED PT (10/08/2016 10:53:QS system process) Next of Kin (10/08/2016 10:53:QS system process) Next of Kin Relationship: OR (10/08/2016 10:53:QS system process) Date of : 1985 (10/08/2016 10:53:QS system process) Marital Status: Single (10/08/2016 10:53:QS system process) Sex: Female (10/08/2016 10:53:QS system process) Occupation: None (10/08/2016 11:11:Asad Godoy RN) Race: (10/08/2016 10:53:QS system process) Ethnicity: Non- or (10/08/2016 10:53:QS system process) Lutheran: None (10/08/2016 10:53:QS system process) FOB Involved: No (10/08/2016 11:11:Asad Godoy RN) Father of Baby Name: unknown (10/08/2016 11:11:Asad Godoy RN) DRUG AND ALCOHOL USE Alcohol: Yes (10/08/2016 11:11:Madhavi Blackman RN) Average Alcohol Consumption: <2 per day (10/08/2016 11:11:Madhavi Blackman RN) Advised to Stop Alcohol: Yes (10/08/2016 11:11:Madhavi Blackman RN) Alcohol Comments: Pt states she had a beer last night (10/08/2016 11:11:Madhavi Blackman RN) Cigarettes: Current Everyday Smoker. [id number] (10/08/2016 11:11:Madhavi Blackman RN) Average Cigarettes Smoked: > 10 per day (10/08/2016 11:11:Madhavi Blackman RN) Advised to Stop Smoking: Yes (10/08/2016 11:11:Madhavi Blackman RN) Marijuana: No (10/08/2016 11:11:Madhavi Blackman RN) Cocaine: No (10/08/2016 11:11:Madhavi Blackman RN) Other Illicit Drugs: No (10/08/2016 11:11:Madhavi Blackman RN) VACCINE HISTORY Influenza Vaccine: No (10/08/2016 11:11:Madhavi Blackman RN) Pneumococcal Vaccine: No (10/08/2016 11:11:Madhavi Blackman RN) Tetanus Vaccine: Yes (10/08/2016 11:11:Madhavi Blackman RN) Tdap Vaccine: No (10/08/2016 11:11:Madhavi Blackman RN) Hepatitis B Vaccine: Yes (10/08/2016 11:11:Madhavi Blackman RN) Job Printer Apprentice: [employer] (10/08/2016 11:11:Asad Godyo RN) Feeding Preference: Formula (10/08/2016 11:11:Leonor Richardson RN) Circumcision: N/A (10/08/2016 11:11:Asad Godoy RN) Classes Attended: No (10/08/2016 11:11:Asad Godoy RN) Tubal Ligation: No (10/08/2016 11:11:Asad Godoy RN) Tubal Authorization Signed: N/A (10/08/2016 11:11:Asad Godoy RN) Consent: N/A (10/08/2016 11:11:Asad Godoy RN) Consent Signed: N/A (10/08/2016 11:11:Asad Godoy RN) Pain Management Plans: Epidural (10/08/2016 11:11:Madhavi Blackman RN) Plans for Labor and Delivery: None (10/08/2016 11:11:Madhavi Blackman RN) Other Labor and Delivery Plans: Plans to give baby up for adoption (10/08/2016 11:11:Asad Godoy RN) Support Person: none (10/08/2016 11:11:Asad Godoy RN) Other Relationship: none (10/08/2016 11:11:Asad Godoy RN) Cultural/Spritual Practice: No (10/08/2016 11:11:Asad Godoy RN) Spir/Cult Dietary Needs: No (10/08/2016 11:11:Asad Godoy RN) LIVING SITUATION/DISCHARGE PLAN Living Arrangements: Homeless (10/08/2016 11:11:Madhavi Blackman RN) WIC Program: Needs referral (10/08/2016 11:11:Madhavi Blackman RN) Currently Using Commun Resources: No (10/08/2016 11:11:Madhavi Blackman RN) Outside Agency/Operating Room Technologist: No (10/08/2016 11:11:Madhavi Blackman RN) Car Seat for Discharge: N/A (10/08/2016 11:11:Madhavi Blackman RN) Adoption Requested: Yes (10/08/2016 11:11:Madhavi Blackman RN) Pt Contact w/ Post : No (10/08/2016 11:11:Madhavi Blackman RN) LABS Blood Type: O Positive (10/08/2016 11:11:Madhavi Blackman RN) Antibody Screen: Negative (10/08/2016 11:11:Madhavi Blackman RN) Hemoglobin: 11.1 L (10/08/2016 11:51:QS system process) Hematocrit: 32.7 L (10/08/2016 11:51:QS system process) MCV: 81 (10/08/2016 11:51:QS system process) Group Beta Strep: Unknown (10/08/2016 11:11:Madhavi Blackman RN) Gonorrhea: Positive (10/08/2016 11:11:Madhavi Blackman RN) Chlamydia: Negative (10/08/2016 11:11:Madhavi Blackman RN) HIV Results: NEGATIVE (10/08/2016 11:54:QS system process) Rubella: Immune (10/08/2016 11:51:Asad Godoy RN) Rubella Titer: 3.48 (10/08/2016 11:51:QS system process) OB/PREVIOUS HISTORY Current Procedures: Ultrasound (10/08/2016 11:11:Asad Godoy RN) History of Previous : No (10/08/2016 11:11:Asad Godoy RN) History of Gestational Diabetes: No (10/08/2016 11:11:Asad Godoy RN) History of PIH: No (10/08/2016 11:11:Asad Godoy RN) History of Incompetent Cervix: No (10/08/2016 11:11:Asad Godoy RN) History of Placenta Previa/Abrup: No (10/08/2016 11:11:Asad Godoy RN) History of Macrosomia: No (10/08/2016 11:11:Asad Godoy RN) History of IUGR: Yes (10/08/2016 11:11:Asad Godoy RN) History of Hemorrhage: No (10/08/2016 11:11:Asad Godoy RN) History of Loss/Stillborn: No (10/08/2016 11:11:Asad Godoy RN) History of : No (10/08/2016 11:11:Asad Godoy RN) History of D (Rh) Sensitization: No (10/08/2016 11:11:Asad Godoy RN) History Recurrent Loss/Stillborn: No (10/08/2016 11:11:Asad Godoy RN) History Depression/PP Depression: No (10/08/2016 11:11:Asad Godoy RN) History of Uterine Anomaly/JEAN-CLAUDE: No (10/08/2016 11:11:Asad Godoy RN) History of Infertility: No (10/08/2016 11:11:Asad Godoy RN) History of ART Treatment: No (10/08/2016 11:11:Asad Godoy RN) History of JEAN-CLAUDE: No (10/08/2016 11:11:Asad Godoy RN) Comments Obstetrical History: G1- Current, severe IUGR (10/08/2016 11:11:Asad Godoy RN) MEDICAL HISTORY Med Hx Diabetes: No (10/08/2016 11:11:Asad Godoy RN) Med Hx Hypertension: No (10/08/2016 11:11:Asad Godoy RN) Med Hx Heart Disease: No (10/08/2016 11:11:Asad Godoy RN) Med Hx Autoimmune Disorder: No (10/08/2016 11:11:Asad Godoy RN) Med Hx Kidney Disease/UTI: No (10/08/2016 11:11:Asad Godoy RN) Med Hx Neurologic/Epilepsy: No (10/08/2016 11:11:Asad Godoy RN) Med Hx Psychiatric Disorders: No (10/08/2016 11:11:Asad Godoy RN) Med Hx Hepatitis/Liver Disease: No (10/08/2016 11:11:Asad Godoy RN) Med Hx Varicosities/Phlebitis: No (10/08/2016 11:11:Asad Godoy RN) Med Hx Thyroid Dysfunction: No (10/08/2016 11:11:Asad Godoy RN) Med Hx Trauma/Violence: No (10/08/2016 11:11:Asad Godoy RN) Med Hx Blood Transfusion: No (10/08/2016 11:11:Asad Godoy RN) Med Hx Pulmonary (Asthma,TB): No (10/08/2016 11:11:Asad Godoy RN) Med Hx Breast: No (10/08/2016 11:11:Asad Godoy RN) Med Hx HAY BUCKLER Surgery: No (10/08/2016 11:11:Asad Godoy RN) Med Hx Hospitalization/Surgery: No (10/08/2016 11:11:Asad Godoy RN) Med Hx Anesthetic Complications: No (10/08/2016 11:11:Asad Godoy RN) Med Hx Abnormal Pap Smear: No (10/08/2016 11:11:Asad Godoy RN) Other Medical Diseases: No (10/08/2016 11:11:Asad Godoy RN) Med Hx Significant Family Hx: No (10/08/2016 11:11:Asad Godoy RN) INFECTIOUS HISTORY Inf Hx Gonorrhea: Yes (10/08/2016 11:11:Asad Godoy RN) Inf Hx Chlamydia: No (10/08/2016 11:11:Asad Godoy RN) Inf Hx Syphilis: No (10/08/2016 11:11:Asad Godoy RN) Inf Hx HIV/AIDS: No (10/08/2016 11:11:Asad Godoy RN) Inf Hx Human Papilloma Virus: No (10/08/2016 11:11:Asad Godoy RN) Inf Hx Pt/Partner Genital Herpes: No (10/08/2016 11:11:Asad Godoy RN) Inf Hx Tuberculosis/Exposure: No (10/08/2016 11:11:Asad Godoy RN) Inf Hx Hepatitis B,C: No (10/08/2016 11:11:Asad Godoy RN) Inf Hx Rash or Viral Illness: No (10/08/2016 11:11:Asad Godoy RN) Details of Infectious Hx: Positive for gonorrhea with this , treated upon admission to hospital (10/08/2016 11:11:Asad Godoy RN) GENETIC HISTORY Gen Hx Age >=35 at [facility]: No (10/08/2016 11:11:Asad Godoy RN) Gen Hx Thalassemia: No (10/08/2016 11:11:Asad Godoy RN) Gen Hx Congenital Heart Defect: No (10/08/2016 11:11:Asad Godoy RN) Gen Hx Neural Tube Defect: No (10/08/2016 11:11:Asad Godoy RN) Gen Hx Down's Syndrome: No (10/08/2016 11:11:Asad Godoy RN) Gen Hx Sandoval-Sachs: No (10/08/2016 11:11:Asad Godoy RN) Gen Hx [place]: No (10/08/2016 11:11:Asad Godoy RN) Gen Hx Familial Dysautonomia: No (10/08/2016 11:11:Asad Godoy RN) Gen Hx Sickle Cell Disease/Trait: No (10/08/2016 11:11:Asad Godoy RN) Gen Hx Hemophilia/Blood Disorder: No (10/08/2016 11:11:Asad Godoy RN) Gen Hx Muscular Dystrophy: No (10/08/2016 11:11:Asad Godoy RN) Gen Hx Cystic Fibrosis: No (10/08/2016 11:11:Asad Godoy RN) Gen Hx [place] Chorea: No (10/08/2016 11:11:Asad Godoy RN) Gen Hx Mental Retardation/Autism: No (10/08/2016 11:11:Asad Godoy RN) Gen Hx Tested for Fragile X: No (10/08/2016 11:11:Asad Godoy RN) Gen Hx Other Inher/Chromosomal: No (10/08/2016 11:11:Asad Godoy RN) Gen Hx Maternal Metabolic DO: No (10/08/2016 11:11:Asad Godoy RN) Gen Hx Pt Father or FOB Defect: No (10/08/2016 11:11:Asad Godoy RN) Gen Hx Other Genetic History: No (10/08/2016 11:11:Asad Godoy RN) Gen Hx Drugs/Meds since LMP: No (10/08/2016 11:11:Asad Godoy RN)
--- NOTE | 2016-10-09 04:48 | L&D Flow Sheet ---
LD Flowsheet Datetime Report Generated by CPN: 10/09/2016 04:45 Datetime: 10/08/2016 23:09 Stage of : Recovery (Asad Godoy, RN) Datetime: 10/08/2016 23:03 Stage of : Recovery (Rucskristopherra Jayne, RN) NBP Sys/Betzy/Mean (mmHg): 136 (QS system process) : 92 (QS system process) : 109 (QS system process) Pulse: 72 (QS system process) Respirations: 18 (Rucsandra Jayne, RN) Pain Scale: 2 (Asad Gdooy RN) Pain Presence: Intermittent (Asad Godoy RN) Pain Type: Cramping; Ache (Asad Godoy RN) Pain Location: Abdomen; Perineum (Asad Godoy RN) Pain Goal: 2 (Asad Godoy RN) Pain Relief Measures: Comfort Measures (Asad Godoy RN) Datetime: 10/08/2016 23:02 NBP Sys/Betzy/Mean (mmHg): 147 (QS system process) : 103 (QS system process) : 121 (QS system process) Pulse: 75 (QS system process) Datetime: 10/08/2016 22:46 Stage of : Recovery (Asad Godoy RN) NBP Sys/Betzy/Mean (mmHg): 139 (QS system process) : 92 (QS system process) : 111 (QS system process) Pulse: 78 (QS system process) Respirations: 18 (Asad Godoy RN) Pain Scale: 2 (Rucsandra Jayne, RN) Pain Presence: Intermittent (Rucsandra Jayne, RN) Pain Type: Cramping; Ache (Rucsandra Jayne, RN) Pain Location: Abdomen; Perineum (Rucsandra Jayne, RN) Pain Goal: 2 (Rucsandra Jayne, RN) Datetime: 10/08/2016 22:33 Stage of : Recovery (Asad Godoy, RN) Pain Scale: 2 (Rucsandra Jayne, RN) Pain Presence: Intermittent (Rucsandra Jayne, RN) Pain Type: Cramping; Ache (Rucsandra Jayne, RN) Pain Location: Abdomen; Perineum (Rucsandra Jayne, RN) Pain Goal: 2 (Rucsandra Jayne, RN) Pain Relief Measures: Pain Medication Given (Rucsandra Jayne, RN) Datetime: 10/08/2016 22:31 Stage of : Recovery (Alirezanaun Godoy, RN) NBP Sys/Betzy/Mean (mmHg): 141 (QS system process) : 91 (QS system process) : 110 (QS system process) Pulse: 87 (QS system process) Respirations: 16 (Asad Godoy RN) Pain Scale: 2 (Asad Godoy RN) Pain Presence: Intermittent (Asad Godoy RN) Pain Type: Cramping; Ache (Asad Godoy RN) Pain Location: Abdomen; Perineum (Asad Godoy RN) Pain Goal: 2 (Asad Godoy RN) Pain Relief Measures: pt requesting pain medication. (Asad Godoy RN) Datetime: 10/08/2016 22:28 Stage of : Recovery (Asad Godoy RN) Datetime: 10/08/2016 22:18 Stage of : Recovery (Ulicesra Jayne RN) Datetime: 10/08/2016 22:16 Stage of : Recovery (Rucsandra Jayne, RN) NBP Sys/Betzy/Mean (mmHg): 136 (QS system process) : 90 (QS system process) : 107 (QS system process) Pulse: 76 (QS system process) Respirations: 18 (Rucsandra Jayne, RN) Pain Scale: 0 (Rucsandra Jayne, RN) Pain Presence: None/Denies (Rucsandra Jayne, RN) Pain Type: N/A (Rucsandra Jayne, RN) Datetime: 10/08/2016 22:02 Stage of : Recovery (Rucsandra Jayne, RN) NBP Sys/Betzy/Mean (mmHg): 136 (QS system process) : 84 (QS system process) : 105 (QS system process) Pulse: 75 (QS system process) Respirations: 18 (Rucsandra Jayne, RN) Pain Scale: 0 (Rucsandra Jayne, RN) Pain Presence: None/Denies (Rucsandra Jayne, RN) Pain Type: N/A (Rucsandra Jayne, RN) Datetime: 10/08/2016 21:48 Stage of : Recovery (Asad Godoy RN) NBP Sys/Betzy/Mean (mmHg): 154 (QS system process) : 93 (QS system process) : 118 (QS system process) Pulse: 87 (QS system process) Respirations: 18 (Asad Godoy RN) Temperature (F): 98.0 (Asad Godoy RN) Temperature (C): 36.7 (QS system process) Pain Scale: 0 (Asad Godoy RN) Pain Presence: None/Denies (Asad Godoy RN) Pain Type: N/A (Asad Godoy RN) Datetime: 10/08/2016 21:47 NBP Sys/Betzy/Mean (mmHg): 163 (QS system process) : 92 (QS system process) : 121 (QS system process) Pulse: 75 (QS system process) Datetime: 10/08/2016 21:31 Stage of : Recovery (Rucsandra Jayne, RN) NBP Sys/Betzy/Mean (mmHg): 144 (QS system process) : 87 (QS system process) : 110 (QS system process) Pulse: 83 (QS system process) Respirations: 18 (Rucsandra Jayne, RN) Pain Scale: 0 (Rucsandra Jayne, RN) Pain Presence: None/Denies (Rucsandra Jayne, RN) Pain Type: N/A (Rucsandra Jayne, RN) Datetime: 10/08/2016 21:16 Stage of : Recovery (Rucsandra Jayne, RN) NBP Sys/Betzy/Mean (mmHg): 146 (QS system process) : 93 (QS system process) : 116 (QS system process) Pulse: 83 (QS system process) Respirations: 18 (Rucsandra Jayne, RN) Pain Scale: 0 (Rucsandra Jayne, RN) Pain Presence: None/Denies (Rucsandra Jayne, RN) Pain Type: N/A (Rucsandra Jayne, RN) Datetime: 10/08/2016 21:01 Stage of : [facility] NBP Sys/Betzy/Mean (mmHg): 154 (QS system process) : 90 (QS system process) : 114 (QS system process) Pulse: 86 (QS system process) Respirations: 18 (Asad Godoy, RN) Pain Scale: 0 [facility], [facility] Pain Presence: None/Denies [facility]) Pain Type: N/A ([facility], ) Datetime: 10/08/2016 20:57 Stage of : [facility] Carey[facility], ) Datetime: 10/08/2016 20:55 Stage 2 Comments: of viable baby girl, see delivery summary (Rucsandra Jayne, RN) Datetime: 10/08/2016 20:51 Monitor Interventions for FHR: Ultrasound Adjusted (Rucsandra Jayne, RN) Datetime: 10/08/2016 20:50 Monitor Mode: External US (Rucsandra Jayne, RN) FHR Baseline Rate : 90 (Rucsandra Jayne, RN) Comments: audible HR in 90s, RN adjusting EFM. MD remains at BS, pt pushing with ctx. (Rucsandra Jayne, RN) Datetime: 10/08/2016 20:47 NBP Sys/Betzy/Mean (mmHg): 160 (QS system process) : 97 (QS system process) : 120 (QS system process) Pulse: 77 (QS system process) LaborFlag: Antepartum (QS system process) Datetime: 10/08/2016 20:46 Monitor Interventions for FHR: Ultrasound Adjusted (Asad Godoy RN) Datetime: 10/08/2016 20:45 Monitor Mode: External; Palpation (Asad Godoy RN) Frequency (min): 1.5-4 (Asad Godoy RN) Quality: Moderate to Strong (Asad Godoy RN) Duration (sec): 60-90 (Asad Godoy RN) Resting Tone (Palpate): Relaxed (Asad Godoy RN) Monitor Mode: External US (Asad Godoy RN) FHR Baseline Rate : 110 (Asad Godoy RN) Variability: Moderate 6-25 bpm (Rucsandra Jayne, RN) Accelerations: None (Rucsandra Jayne, RN) Decelerations: Variable; Prolonged (Rucsandra Jayne, RN) Datetime: 10/08/2016 20:42 Maternal Comments: nursery at bedside for delivery (Rucsandra Jayne, RN) Datetime: 10/08/2016 20:40 Monitor Mode: External US (Rucsandra Jayne, RN) FHR Baseline Rate : 110 (Rucsandra Jayne, RN) Datetime: 10/08/2016 20:34 Maternal Comments: Pt pushing with ctx, RN and MD remain at BS continuously monitoring FHTs. (Asad Godoy RN) Instructional Method: Verbal; Patient Instructed; Verbalized Understanding (Asad Godoy RN) Plan of Care: Vaginal Delivery (Asad Godoy RN) Labor/Induction: Pushing Methods (Asad Godoy RN) Communication Comments: Dr Horowitz remains at bedside, strip reviewed. Coaching pt on pushing techniques, pt agrees and V/U. (Asad Godoy RN) Datetime: 10/08/2016 20:33 Maternal Comments: ayoub D/C'd and emptied 35ml of clear yellow urine. (Asad Godoy RN) Datetime: 10/08/2016 20:30 Monitor Mode: External; Palpation (Leonor Richardson RN) Frequency (min): 1.5-4 (Leonor Richardson RN) Quality: Moderate (Leonor Richardson RN) Duration (sec): 50-80 (Leonor Richardson RN) Resting Tone (Palpate): Relaxed (Leonor Richardson RN) Monitor Mode: External US (Leonor Richradson RN) FHR Baseline Rate : 125 (Leonor Richardson RN) Variability: Moderate 6-25 bpm (Leonor Richardson RN) Decelerations: Early; Variable (Leonor Richardson RN) Dilatation (cm): 10.0 (Asad Godoy RN) Effacement (%): 100 (Asad Godoy RN) Station: 2 (Asad Godoy RN) Datetime: 10/08/2016 20:29 Provider Reviewed Strip: Yes (Asad Godoy RN) Strip Reviewed by: Dr Horowitz (Asad Godoy, ALEXANDRA) Communication: Provider at Bedside (Asad Godoy RN) Communication Comments: Dr Horowitz at bedside for delivery, strip reviewed. (Asad Godoy, ALEXANDRA) Datetime: 10/08/2016 20:17 NBP Sys/Betzy/Mean (mmHg): 141 (QS system process) : 90 (QS system process) : 111 (QS system process) Pulse: 68 (QS system process) LaborFlag: Antepartum (QS system process) Datetime: 10/08/2016 20:15 Monitor Mode: External; Palpation (Leonor Richardson RN) Frequency (min): 2-4 (Leonor Richardson RN) Quality: Moderate (Leonor Richardson RN) Duration (sec): 70-180 (Leonor Richardson RN) Resting Tone (Palpate): Relaxed (Leonor Richardson RN) Monitor Mode: External US (Leonor Richardson RN) FHR Baseline Rate : 125 (Leonor Richardson RN) Variability: Moderate 6-25 bpm (Leonor Richardson RN) Decelerations: Early; Variable (Leonor Richardson RN) Datetime: 10/08/2016 20:11 Patient Position/Activity: High Fowlers (Asad Godoy RN) Patient Care Comments: pt laboring down (Rucsandra Jayne, RN) Datetime: 10/08/2016 20:07 Patient Position/Activity: Right Tilt; Semi-Fowlers (Rucsandra Jayne, RN) Datetime: 10/08/2016 20:01 NBP Sys/Betzy/Mean (mmHg): 128 (QS system process) : 82 (QS system process) : 101 (QS system process) Pulse: 63 (QS system process) LaborFlag: Antepartum (QS system process) Datetime: 10/08/2016 20:00 Monitor Mode: External; Palpation (Leonor Richardson, RN) Frequency (min): 4-5 (Leonor Richardson, RN) Quality: Moderate (Leonor Cartwrightann, RN) Duration (sec): 50-120 (Leonor Cartwrightann, RN) Resting Tone (Palpate): Relaxed (Leonor Richardson, RN) Monitor Mode: External US (Leonor Richardson, RN) FHR Baseline Rate : 120 (Leonor Richardson, RN) Variability: Moderate 6-25 bpm (Leonor Richardson, RN) Decelerations: Variable (Leonor Kossmann, RN) Datetime: 10/08/2016 19:59 Antibiotics: Penicillin IV (Units) @ 2.5 million units (Asad Godoy RN) Medication Comments: Intended effects and possible side effects explained to pt. Pt agrees and V/U. (Asad Godoy, ALEXANDRA) Datetime: 10/08/2016 19:57 Dilatation (cm): 10.0 (Asad Godoy RN) Effacement (%): 100 (Asad Godoy RN) Station: 0 (Asad Godoy RN) Exam by: Tina Godoy RN (Asad Godoy RN) Vaginal Bleeding: Normal Show (Asad Godoy RN) Datetime: 10/08/2016 19:47 NBP Sys/Betzy/Mean (mmHg): 136 (QS system process) : 87 (QS system process) : 105 (QS system process) Pulse: 59 (QS system process) LaborFlag: Antepartum (QS system process) Datetime: 10/08/2016 19:45 Monitor Mode: External; Palpation (Leonor Richardson RN) Frequency (min): 1-5 (Leonor Richardson RN) Quality: Moderate (Leonor Richardson RN) Duration (sec): 30-140 (Leonor Richardson RN) Resting Tone (Palpate): Relaxed (Leonor Richardson RN) Monitor Mode: External US (Leonor Rihcardson RN) FHR Baseline Rate : 120 (Leonor Richardson RN) Variability: Moderate 6-25 bpm (Leonor Richardson RN) Decelerations: Early (Leonor Richardson RN) Comments: possible other decelerations noted difficult to determine due to broken tracing (Leonor Richardson RN) Communication: Call/Page Placed to Provider (Asad Godoy RN) Provider Notified (Name): DR Horowitz (Asad Godoy RN) Notification Reason: Status Update (Asad Godoy RN) Communication Comments: Called Dr Horowitz, advised of FHTs and interventions, CTX, SVE, VS and pt feeling pressure with ctx. States she is on her way for delivery. (Asad Godoy RN) Datetime: 10/08/2016 19:38 Patient Position/Activity: Right Lateral (Asad Godoy RN) Datetime: 10/08/2016 19:37 IV/Blood Work: IV Bolus Started (Asad Godoy RN) Datetime: 10/08/2016 19:36 Pitocin (milliunit): Pitocin Decreased to (milliunits) @ 6 (Asad Godoy, RN) Datetime: 10/08/2016 19:34 Dilatation (cm): 9.5 (Asad Godoy, ALEXANDRA) Effacement (%): 100 (Asad Godoy RN) Station: 0 (Asad Godoy RN) Exam by: Tina Godoy RN (Asad Godoy RN) Vaginal Bleeding: Normal Show (Asad Godoy, ALEXANDRA) Datetime: 10/08/2016 19:32 NBP Sys/Betzy/Mean (mmHg): 164 (QS system process) : 105 (QS system process) : 125 (QS system process) Pulse: 65 (QS system process) LaborFlag: Antepartum (QS system process) Datetime: 10/08/2016 19:30 Monitor Mode: External; Palpation (Leonor Rihcardson RN) Frequency (min): 1.5-4 (Leonor Richardson, RN) Quality: Moderate (Leonorlubna Cartwrightann, RN) Duration (sec): 60-140 (Leonor Richardson, RN) Resting Tone (Palpate): Relaxed (Leonor Richardson, RN) Monitor Mode: External US (Leonor Richardson, RN) FHR Baseline Rate : 120 (Leonor Richardson, RN) Variability: Moderate 6-25 bpm (Leonor Richardson, RN) Decelerations: Variable (Leonorlubna Cartwrightann, RN) Datetime: 10/08/2016 19:27 Temperature (F): 97.7 (Madhavi Blackman RN) Temperature (C): 36.5 (QS system process) Level of Consciousness: Fully Conscious (Asad Godoy RN) DTR's/Clonus: DTRs 1+; No Clonus (Asad Godoy RN) Headache: Denies (Asad Godoy RN) Breath Sounds, Left: Clear and Equal (Asad Godoy RN) Breath Sounds, Right: Clear and Equal (Asad Godoy RN) Nausea/Vomiting: Denies (Asad Godoy RN) RUQ Epigastric Pain: Denies (Asad Godoy RN) LaborFlag: Antepartum (QS system process) Datetime: 10/08/2016 19:25 Pitocin (milliunit): Pitocin Remains (milliunits) @ 8 (Madhavi Blackman RN) Communication Comments: Report given to Kayden Godoy RN. Care relinquished @ this time. (Madhavi Blackman RN) Datetime: 10/08/2016 19:17 NBP Sys/Betzy/Mean (mmHg): 153 (QS system process) : 107 (QS system process) : 126 (QS system process) Pulse: 68 (QS system process) LaborFlag: Antepartum (QS system process) Datetime: 10/08/2016 19:15 Monitor Mode: External; Palpation (Leonor Richardson RN) Frequency (min): 1.5-4 (Leonor Richardson, RN) Quality: Moderate (Leonor Richardson, RN) Duration (sec): 50-110 (Leonor Richardson, RN) Resting Tone (Palpate): Relaxed (Leonor Richardson, RN) Monitor Mode: External US (Leonor Richardson, RN) FHR Baseline Rate : 125 (Leonor Richardson, RN) Variability: Moderate 6-25 bpm (Leonor Cartwrightann, RN) Decelerations: Variable (Leonor Richardson, RN) Datetime: 10/08/2016 19:10 NBP Sys/Betzy/Mean (mmHg): 146 (QS system process) : 103 (QS system process) : 119 (QS system process) Pulse: 61 (QS system process) LaborFlag: Antepartum (QS system process) Datetime: 10/08/2016 19:00 Monitor Mode: External (Madhavi Marhefka, RN) Frequency (min): 2-2.5 (Madhavi Marhefka, RN) Quality: Moderate (Madhavi Marhefka, RN) Duration (sec): 60-120 (Madhavi Marhefka, RN) Resting Tone (Palpate): Relaxed (Madhavi Marhefka, RN) Monitor Mode: External US (Madhavi Marhefka, RN) FHR Baseline Rate : 125 (Madhavi Marhefka, RN) FHR Baseline Changes: No Baseline Change (Madhavi Marhefka, RN) Variability: Moderate 6-25 bpm (Madhavi Marhefka, RN) Accelerations: None (Madhavi Marhefka, RN) Decelerations: Variable (Madhavi Marhefka, RN) Datetime: 10/08/2016 18:45 Monitor Mode: External; Palpation (Madhavi Blackman RN) Frequency (min): 1-3 (Madhavi Blackman RN) Quality: Moderate to Strong (Madhavi Blackman RN) Duration (sec): 50-80 (Madhavi Blackman, RN) Duration Criteria: More than Two 120 Second or Greater Contractions (Madhavi Blackman RN) Pattern: Normal: <= 5 Contractions in 10 Minutes (Madhavi Blackman RN) Resting Tone (Palpate): Relaxed (Madhavi Blackman RN) Monitor Mode: External US; Auscultation (Madhavi Blackman RN) FHR Baseline Rate : 130 (Madhavi Blackman RN) FHR Baseline Changes: No Baseline Change (Madhavi Blackman RN) Variability: Moderate 6-25 bpm (Madhavi Blackman, RN) Accelerations: 15X15 (Madhavi Blackman, RN) Decelerations: Early (Madhavi Blackman RN) Patient Position/Activity: Left Lateral; Peanut Ball (Madhavi Blackman, RN) Datetime: 10/08/2016 18:43 Dilatation (cm): 5.5 (Madhavi Blackman RN) Effacement (%): 100 (Madhavi Blackman RN) Station: -2 (Madhavi Blackman RN) Exam by: Tina Blackman RN (Madhavi Blackman, RN) Datetime: 10/08/2016 18:40 NBP Sys/Betzy/Mean (mmHg): 116 (QS system process) : 88 (QS system process) : 98 (QS system process) Pulse: 67 (QS system process) LaborFlag: Antepartum (QS system process) Datetime: 10/08/2016 18:39 I/O Interventions: Ayoub Cath Inserted (Madhavi [facility], RN) Datetime: 10/08/2016 18:35 NBP Sys/Betzy/Mean (mmHg): 120 (QS system process) : 80 (QS system process) : 96 (QS system process) Pulse: 55 (QS system process) LaborFlag: Antepartum (QS system process) Datetime: 10/08/2016 18:30 NBP Sys/Betzy/Mean (mmHg): 190 (QS system process) : 86 (QS system process) : 124 (QS system process) Pulse: 88 (QS system process) LaborFlag: Antepartum (QS system process) Datetime: 10/08/2016 18:29 Monitor Mode: External; Palpation (Nena Camp, RNC) Frequency (min): 1-3 (Nena Camp, RNC) Quality: Moderate to Strong (Nena Camp, RNC) Duration (sec): 60-100 (Nena Camp, RNC) Duration Criteria: Less than Two 120 Second Contractions (Nena Camp, RNC) Pattern: Normal: <= 5 Contractions in 10 Minutes (Nena Camp, RNC) Resting Tone (Palpate): Relaxed (Nena Camp, RNC) Monitor Mode: External US; Auscultation (Nena Camp, RNC) FHR Baseline Changes: Unable to Determine (Nena Camp, RNC) Comments: sitting for epidural, maternal hr tracing on monitor, RN at bedside attempting to locate (Nena Camp, RNC) Datetime: 10/08/2016 18:28 Epidural Procedure: Loading Dose (Madhavi Marhefka, RN) Datetime: 10/08/2016 18:27 NBP Sys/Betzy/Mean (mmHg): 151 (QS system process) : 86 (QS system process) : 109 (QS system process) Pulse: 75 (QS system process) LaborFlag: Antepartum (QS system process) Datetime: 10/08/2016 18:26 NBP Sys/Betzy/Mean (mmHg): 157 (QS system process) : 107 (QS system process) : 125 (QS system process) Pulse: 78 (QS system process) LaborFlag: Antepartum (QS system process) Datetime: 10/08/2016 18:25 Pulse: 79 (QS system process) SpO2 (%): 98 (QS system process) Epidural Procedure: Cath Placed (Madhavi Blackman RN) Epidural Procedure: Test Dose (Madhavi Blackman RN) LaborFlag: Antepartum (QS system process) Datetime: 10/08/2016 18:24 SpO2 (%): 94 (QS system process) LaborFlag: Antepartum (QS system process) Datetime: 10/08/2016 18:23 Procedure Verify: Correct Patient Identity; Correct Side and Site are Marked; Accurate Procedure Consent Form; Agreement on Procedure to be Done; Correct Patient Position; Relevant Images and Results are Properly Labeled and Displayed; Addressed Need to Administer Antibiotics or Fluids for Irrigation; Safety Precautions Based on Patient History or Medication Use (Madhavi Blackman RN) Anesthesia Plans: Epidural (Madhavi Blackman RN) Epidural Positioning: Sitting (Madhavi Blackman RN) Datetime: 10/08/2016 18:19 Procedure Verify: Correct Patient Identity; Correct Side and Site are Marked; Accurate Procedure Consent Form; Agreement on Procedure to be Done; Correct Patient Position; Relevant Images and Results are Properly Labeled and Displayed; Addressed Need to Administer Antibiotics or Fluids for Irrigation; Safety Precautions Based on Patient History or Medication Use (Madhavi Blackman RN) Anesthesia Plans: Epidural (Madhavi Blackman RN) Epidural Positioning: Sitting (Madhavi Blackman RN) Anesthesia Comments: Dr. Triplett @ bedside (Madhavi Blackman RN) Datetime: 10/08/2016 18:15 Monitor Mode: External; Palpation (Madhavi Marhefka, RN) Frequency (min): 1-4 (Madhavi Marhefka, RN) Quality: Moderate (Madhavi Marhefka, RN) Duration (sec): 80-110 (Madhavi Marhefka, RN) Resting Tone (Palpate): Relaxed (Madhavi Marhefka, RN) Monitor Mode: External US (Madhavi Marhefka, RN) FHR Baseline Rate : 115 (Madhavi Marhefka, RN) FHR Baseline Changes: No Baseline Change (Madhavi Marhefka, RN) Variability: Moderate 6-25 bpm (Madhavi Marhefka, RN) Accelerations: 15X15 (Madhavi Marhefka, RN) Decelerations: Early (Madhavi Marhefka, RN) Datetime: 10/08/2016 18:00 Monitor Mode: External; Palpation (Nena Camp, RNC) Monitor Mode: External (Madhavi Marhefka, RN) Frequency (min): 1-4 (Nena Camp, RNC) Frequency (min): 2-3 (Madhavi Marhefka, RN) Quality: Moderate to Strong (Nena Camp, RNC) Quality: Moderate (Madhavi Marhefka, RN) Duration (sec): 60-180 (Nena Camp, RNC) Duration (sec): 60-100 (Madhavi Marhefka, RN) Duration Criteria: More than Two 120 Second or Greater Contractions (Nena Camp, RNC) Pattern: Normal: <= 5 Contractions in 10 Minutes (Nena Camp, RNC) Resting Tone (Palpate): Relaxed (Nena Camp, RNC) Resting Tone (Palpate): Relaxed (Madhavi Marhefka, RN) Monitor Mode: External US (Madhavi Marisaacfka, RN) FHR Baseline Rate : 115 (Madhavi Marhefka, RN) FHR Baseline Changes: No Baseline Change (Madhavi Marhefka, RN) Variability: Moderate 6-25 bpm (Madhavi Marhefka, RN) Accelerations: None (Madhavi Marhefka, RN) Decelerations: Early (Madhavi Marhefka, RN) Datetime: 10/08/2016 17:50 Comments: involuntarily pushing, writhing RN remains at bedside coaching and assisting pt in maintaining control. Pt unable to follow simple commands, c/onausea and emesis x2. Cool cloth to forehead ([facility], RNC) Dilatation (cm): 5.0 ([facility], RNC) Effacement (%): 100 ([facility], RNC) Station: -1 ([facility], C) Exam by: Camp, S ([facility], C) Datetime: 10/08/2016 17:47 Patient Position/Activity: HOB Lowered; Left Lateral (Nena Camp, RNC) Hygiene: Deja Care; Underpad Changed; Linens Changed (Nena Camp, RNC) Datetime: 10/08/2016 17:45 Monitor Mode: External; Palpation (Nena Camp, RNC) Frequency (min): 1-4 (Nena Camp, RNC) Quality: Moderate (Nena Camp, RNC) Duration (sec): 50-90 (Nena Camp, RNC) Duration Criteria: More than Two 120 Second or Greater Contractions (Nena Camp, RNC) Pattern: Normal: <= 5 Contractions in 10 Minutes (Nena Camp, RNC) Resting Tone (Palpate): Relaxed (Nena Camp, RNC) Monitor Mode: External US; Auscultation (Nena Camp, RNC) FHR Baseline Rate : 115 (Nena Camp, RNC) Variability: Moderate 6-25 bpm (Nena Camp, RNC) Accelerations: None (Nena Camp, RNC) Decelerations: Early (Nena Camp, RNC) Pitocin (milliunit): Pitocin Remains (milliunits) @ (Annotations: 8) (Nena Camp, RNC) Datetime: 10/08/2016 17:30 Monitor Mode: External; Palpation (Nena Camp, RNC) Frequency (min): 1-4 (Nena Camp, RNC) Quality: Moderate (Nena Camp, RNC) Duration (sec): 40-100 (Nena Camp, RNC) Duration Criteria: Less than Two 120 Second Contractions (Nena Camp, RNC) Pattern: Normal: <= 5 Contractions in 10 Minutes (Nena Camp, RNC) Resting Tone (Palpate): Relaxed (Nena Camp, RNC) Monitor Mode: External US; Auscultation (Nena Camp, RNC) FHR Baseline Rate : 115 (Nena Camp, RNC) Variability: Moderate 6-25 bpm (Nena Camp, RNC) Accelerations: 15X15 (Nena Camp, RNC) Decelerations: Early (Nena Camp, RNC) Pitocin (milliunit): Pitocin Remains (milliunits) @ (Annotations: 8) (Nena Camp, RNC) Datetime: 10/08/2016 17:25 Antibiotics: Start Antibiotics; Zithromax (Nena Camp, RNC) Medication Comments: 500mg iv given (Nena Camp, RNC) Datetime: 10/08/2016 17:20 Patient Care Comments: RN at bedside toco adjusted, abdomen palpates moderate with relaxation noted (Nena Farley, ALEXANDRAC) Datetime: 10/08/2016 17:15 Monitor Mode: External; Palpation (Madhavi Blackman RN) Frequency (min): 3-5 (Madhavi Blackman RN) Quality: Mild/Moderate (Madhavi Blackman RN) Duration (sec): 70-160 (Madhavi Blackman RN) Resting Tone (Palpate): Relaxed (Madhavi Blackman RN) Monitor Mode: External US (Madhavi Blackman RN) FHR Baseline Rate : 125 (Madhavi Blackman RN) FHR Baseline Changes: No Baseline Change (Madhavi Blackman RN) Variability: Moderate 6-25 bpm (Madhavi Blackman RN) Accelerations: 15X15 (Madhavi Blackman RN) Decelerations: None (Madhavi Blackman RN) Pitocin (milliunit): Pitocin Remains (milliunits) @ (Annotations: 8) (Madhavi Blackman RN) Datetime: 10/08/2016 17:14 Pain Scale: 5 (VINNY Mueller) Pain Coping: Writhing; Other (VINNY Mueller) Pain Assessment Comments: Dr Horowitz at bedside, pt screaming and writhing in bed c/o vaginal leaking SROM noted with clear fluid, Dr Horowitz at bedside with rupture and aware. RN and provider attempting to reassure and assist pt in regaining control (VINNY Mueller) Communication: RN at Bedside; Provider at Bedside (VINNY Mueller) LaborFlag: Antepartum (QS system process) Datetime: 10/08/2016 17:03 Dilatation (cm): 2.5 (Madhavi Blackman RN) Effacement (%): 90 (Madhavi lBackman RN) Station: -2 (Madhavi Blackman RN) Exam by: Tina Blackman RN (Madhavi Blackman RN) Patient Care Comments: Pt screaming, rolling all over in the bed. (Madhavi Blackman RN) Datetime: 10/08/2016 17:00 Monitor Mode: External (Madhavi Marhefka, RN) Frequency (min): 2-5 (Madhavi Marhefka, RN) Quality: Mild (Madhavi Marhefka, RN) Duration (sec): 60-120 (Madhavi Marhefka, RN) Resting Tone (Palpate): Relaxed (Madhavi Marhefka, RN) Monitor Mode: External US (Madhavi Marhefka, RN) FHR Baseline Rate : 125 (Madhavi Marhefka, RN) FHR Baseline Changes: No Baseline Change (Madhavi Marhefka, RN) Variability: Moderate 6-25 bpm (Madhavi Marhefka, RN) Accelerations: 15X15 (Madhavi Marhefka, RN) Decelerations: None (Madhavi Marhefka, RN) Pitocin (milliunit): Pitocin Increased to (milliunits) @ (Annotations: 8) (Madhavi Marhefka, RN) Datetime: 10/08/2016 16:54 I/O Interventions: Up to BR (Madhavi Marhefka, RN) Datetime: 10/08/2016 16:45 Monitor Mode: External (Madhavi Blackman RN) Frequency (min): 5-9 (Madhavi Blackman RN) Quality: Mild (Madhavi Blackman RN) Duration (sec): 130-180 (Madhavi Blackman RN) Resting Tone (Palpate): Relaxed (Madhavi Blackman RN) Monitor Mode: External US (Madhavi Blackman RN) FHR Baseline Rate : 125 (Madhavi Blackman RN) FHR Baseline Changes: No Baseline Change (Madhavi Blackman RN) Variability: Moderate 6-25 bpm (Madhavi Blackman RN) Accelerations: 15X15 (Madhavi Blackman RN) Decelerations: None (Madhavi Blackman RN) Pitocin (milliunit): Pitocin Increased to (milliunits) @ (Annotations: 6) (Madhavi Blackman RN)
--- NOTE | 2016-10-09 04:48 | L&D Admission Assessment ---
LD ADM ASMT Datetime Report Generated by CPN: 10/09/2016 04:45 PATIENT ASSESSMENT Assessment Type: Ongoing Assessment (10/08/2016 19:27:Asad Godoy, RN) Assessment Type: Triage (10/08/2016 11:20:Madhavimelissa Mottaka, RN) WEIGHT Weight (lb): 143 (10/08/2016 23:48:QS system process) Weight (lb): 143 (10/08/2016 15:55:QS system process) Weight (lb): 143 (10/08/2016 12:35:QS system process) Weight (lb): 143 (10/08/2016 11:24:QS system process) Weight (kg): 65.0 (10/08/2016 23:48:QS system process) Weight (kg): 65.0 (10/08/2016 15:55:QS system process) Weight (kg): 65.0 (10/08/2016 12:35:QS system process) Weight (kg): 65.0 (10/08/2016 11:24:QS system process) BMI: 27.0 (10/08/2016 23:48:QS system process) BMI: 27.0 (10/08/2016 15:55:QS system process) BMI: 27.0 (10/08/2016 12:35:QS system process) ONSET OF LABOR Onset of Labor: 10/08/2016 15:47 (10/08/2016 11:11:Asad Godoy RN) PAIN Pain Scale: 2 (10/08/2016 23:03:Asad Godoy RN) Pain Scale: 2 (10/08/2016 22:46:Asad Godoy RN) Pain Scale: 2 (10/08/2016 22:33:Asad Godoy RN) Pain Scale: 2 (10/08/2016 22:31:Asad Godoy RN) Pain Scale: 0 (10/08/2016 22:16:Asad Godoy RN) Pain Scale: 0 (10/08/2016 22:02:Asad Godoy RN) Pain Scale: 0 (10/08/2016 21:48:Asad Godoy RN) Pain Scale: 0 (10/08/2016 21:31:Asad Godoy RN) Pain Scale: 0 (10/08/2016 21:16:Asad Godoy RN) Pain Scale: 0 (10/08/2016 21:01:Asad Godoy RN) Pain Scale: 5 (10/08/2016 17:14:VINNY Mueller) Pain Scale: 4 (10/08/2016 11:20:Madhavi Blackman RN) Pain Presence: Intermittent (10/08/2016 23:03:Asad Godoy RN) Pain Presence: Intermittent (10/08/2016 22:46:Asad Godoy RN) Pain Presence: Intermittent (10/08/2016 22:33:Asad Godoy RN) Pain Presence: Intermittent (10/08/2016 22:31:Asad Godoy RN) Pain Presence: None/Denies (10/08/2016 22:16:Asad Godoy RN) Pain Presence: None/Denies (10/08/2016 22:02:Asad Godoy RN) Pain Presence: None/Denies (10/08/2016 21:48:Asad Godoy RN) Pain Presence: None/Denies (10/08/2016 21:31:Asad Godoy RN) Pain Presence: None/Denies (10/08/2016 21:16:Asad Godoy RN) Pain Presence: None/Denies (10/08/2016 21:01:Asad Godoy RN) Pain Presence: Intermittent (10/08/2016 11:20:Madhavi Blackman RN) Pain Type: Cramping; Ache (10/08/2016 23:03:Asad Godoy RN) Pain Type: Cramping; Ache (10/08/2016 22:46:Asad Godoy RN) Pain Type: Cramping; Ache (10/08/2016 22:33:Asad Godoy RN) Pain Type: Cramping; Ache (10/08/2016 22:31:Asad Godoy RN) Pain Type: N/A (10/08/2016 22:16:Asad Godoy RN) Pain Type: N/A (10/08/2016 22:02:Asad Godoy RN) Pain Type: N/A (10/08/2016 21:48:Asad Godoy RN) Pain Type: N/A (10/08/2016 21:31:Asad Godoy RN) Pain Type: N/A (10/08/2016 21:16:Asad Godoy RN) Pain Type: N/A (10/08/2016 21:01:Asad Godoy RN) Pain Type: Contraction (10/08/2016 11:20:Madhavi Blackman RN) Pain Location: Abdomen; Perineum (10/08/2016 23:03:Asad Godoy RN) Pain Location: Abdomen; Perineum (10/08/2016 22:46:Asad Godoy RN) Pain Location: Abdomen; Perineum (10/08/2016 22:33:Asad Godoy RN) Pain Location: Abdomen; Perineum (10/08/2016 22:31:Asad Godoy RN) Pain Location: Abdomen (10/08/2016 11:20:Madhavi Blackman RN) Pain Goal: 2 (10/08/2016 23:03:Asad Godoy RN) Pain Goal: 2 (10/08/2016 22:46:Asad Godoy RN) Pain Goal: 2 (10/08/2016 22:33:Asad Godoy RN) Pain Goal: 2 (10/08/2016 22:31:Asad Godoy RN) Pain Goal: 0 (10/08/2016 11:20:Madhavi Blackman RN) Pain Related to Contraction: Yes (10/08/2016 11:20:Madhavi Blackman RN) Pain Comments: Dr Horowitz at bedside, pt screaming and writhing in bed c/o vaginal leaking SROM noted with clear fluid, Dr Horowitz at bedside with rupture and aware. RN and provider attempting to reassure and assist pt in regaining control (10/08/2016 17:14:VINNY Mueller) CONTRACTIONS Frequency (min): 1.5-4 (10/08/2016 20:45:Asad Godoy RN) Frequency (min): 1.5-4 (10/08/2016 20:30:Leonor Richardson RN) Frequency (min): 2-4 (10/08/2016 20:15:Leonor Richardson RN) Frequency (min): 4-5 (10/08/2016 20:00:Leonor Richardson RN) Frequency (min): 1-5 (10/08/2016 19:45:Leonor Richardson RN) Frequency (min): 1.5-4 (10/08/2016 19:30:Leonor Richardson RN) Frequency (min): 1.5-4 (10/08/2016 19:15:Leonor Richardson RN) Frequency (min): 2-2.5 (10/08/2016 19:00:Madhavi Blackman RN) Frequency (min): 1-3 (10/08/2016 18:45:Madhavi Marhefka, RN) Frequency (min): 1-3 (10/08/2016 18:29:Nena Camp, RNC) Frequency (min): 1-4 (10/08/2016 18:15:Madhavi Marhefka, RN) Frequency (min): 1-4 (10/08/2016 18:00:Nena Camp, RNC) Frequency (min): 2-3 (10/08/2016 18:00:Madhavi Marhefka, RN) Frequency (min): 1-4 (10/08/2016 17:45:Nena Camp, RNC) Frequency (min): 1-4 (10/08/2016 17:30:Nena Camp, RNC) Frequency (min): 3-5 (10/08/2016 17:15:Madhavi Marhefka, RN) Frequency (min): 2-5 (10/08/2016 17:00:Madhavi Marhefka, RN) Frequency (min): 5-9 (10/08/2016 16:45:Madhavi Marhefka, RN) Frequency (min): 4-7 (10/08/2016 16:30:Madhavi Marhefka, RN) Frequency (min): X2 (10/08/2016 16:15:Madhavi Marhefka, RN) Frequency (min): X2 (10/08/2016 16:00:Madhavi Marhefka, RN) Frequency (min): 6-8 (10/08/2016 15:30:Madhavi Marhefka, RN) Frequency (min): X1 (10/08/2016 15:00:Madhavi Marhefka, RN) Frequency (min): X1 (10/08/2016 13:47:Madhavi Marhefka, RN) Frequency (min): Irregular (10/08/2016 13:30:Madhavi Marhefka, RN) Frequency (min): Irregular (10/08/2016 13:00:Madhavi Marhefka, RN) Frequency (min): X2 (10/08/2016 12:01:Madhavi Marhefka, RN) Frequency (min): No ctxs noted (10/08/2016 11:30:Madhavi Blackman RN) Duration (sec): 60-90 (10/08/2016 20:45:Asad Godoy RN) Duration (sec): 50-80 (10/08/2016 20:30:Leonor Richardson RN) Duration (sec): 70-180 (10/08/2016 20:15:Leonor Richardson RN) Duration (sec): 50-120 (10/08/2016 20:00:Leonor Richardson RN) Duration (sec): 30-140 (10/08/2016 19:45:Leonor Richardson RN) Duration (sec): 60-140 (10/08/2016 19:30:Leonor Richardson RN) Duration (sec): 50-110 (10/08/2016 19:15:Leonor Richardson RN) Duration (sec): 60-120 (10/08/2016 19:00:Madhavi Blackman RN) Duration (sec): 50-80 (10/08/2016 18:45:Madhavi Blackman RN) Duration (sec): 60-100 (10/08/2016 18:29:Nena Farley, RNC) Duration (sec): 80-110 (10/08/2016 18:15:Madhavi Blackman RN) Duration (sec): 60-180 (10/08/2016 18:00:Nena Farley, RNC) Duration (sec): 60-100 (10/08/2016 18:00:Madhavi Blackman RN) Duration (sec): 50-90 (10/08/2016 17:45:Nena Camp, RNC) Duration (sec): 40-100 (10/08/2016 17:30:Nena Camp, RNC) Duration (sec): 70-160 (10/08/2016 17:15:Madhavi Blackman RN) Duration (sec): 60-120 (10/08/2016 17:00:Madhavi Blackman RN) Duration (sec): 130-180 (10/08/2016 16:45:Madhavi Blackman RN) Duration (sec): 70-160 (10/08/2016 16:30:Madhavi Blackman, RN) Duration (sec): 150-160 (10/08/2016 16:15:Madhavi Blackman, RN) Duration (sec): 60-110 (10/08/2016 16:00:Madhavi Blackman, RN) Duration (sec): 60-100 (10/08/2016 15:30:Madhavi Blackman, RN) Duration (sec): 140 (10/08/2016 15:00:Madhavi Blackman, RN) Duration (sec): 140 (10/08/2016 13:47:Madhavi Blackman, RN) Duration (sec): 90 (10/08/2016 13:30:Madhavi Blackman, RN) Duration (sec): 100-130 (10/08/2016 13:00:Madhavi Blackman, RN) Duration (sec): 100-220 (10/08/2016 12:01:Madhavi Blackman RN) Quality: Moderate to Strong (10/08/2016 20:45:Asad Godoy RN) Quality: Moderate (10/08/2016 20:30:Leonor Richardson RN) Quality: Moderate (10/08/2016 20:15:Leonor Richardson RN) Quality: Moderate (10/08/2016 20:00:Leonor Richardson RN) Quality: Moderate (10/08/2016 19:45:Leonor Richardson RN) Quality: Moderate (10/08/2016 19:30:Leonor Richardson RN) Quality: Moderate (10/08/2016 19:15:Leonor Richardson RN) Quality: Moderate (10/08/2016 19:00:Madhavi Blackman RN) Quality: Moderate to Strong (10/08/2016 18:45:Madhavi Blackman RN) Quality: Moderate to Strong (10/08/2016 18:29:VINNY Mueller) Quality: Moderate (10/08/2016 18:15:Madhavi Blackman RN) Quality: Moderate to Strong (10/08/2016 18:00:Nena Camp, RNC) Quality: Moderate (10/08/2016 18:00:Madhavi Marhefka, RN) Quality: Moderate (10/08/2016 17:45:Nena Camp, RNC) Quality: Moderate (10/08/2016 17:30:Nena Camp, RNC) Quality: Mild/Moderate (10/08/2016 17:15:Madhavi Marhefka, RN) Quality: Mild (10/08/2016 17:00:Madhavi Missyhefka, RN) Quality: Mild (10/08/2016 16:45:Madhavi Marhefka, RN) Quality: Mild (10/08/2016 16:30:Madhavi Marhefka, RN) Quality: Mild (10/08/2016 16:15:Madhavi Marhefka, RN) Quality: Mild (10/08/2016 16:00:Madhavi Marhefka, RN) Quality: Mild (10/08/2016 15:30:Madhavi Marhefka, RN) Quality: Mild (10/08/2016 15:00:Madhavi Marhefka, RN) Quality: Mild (10/08/2016 13:47:Madhavi Marhefka, RN) Quality: Mild (10/08/2016 13:30:Madhavi Marhefka, RN) Quality: Mild (10/08/2016 13:00:Madhavi Marhefka, RN) Quality: Mild (10/08/2016 12:01:Madhavi Marhefka, RN) Quality: Mild (10/08/2016 11:30:Madhavi Marhefka, RN) Pattern: Normal: <= 5 Contractions in 10 Minutes (10/08/2016 18:45:Madhavi Marhefka, RN) Pattern: Normal: <= 5 Contractions in 10 Minutes (10/08/2016 18:29:Nena Camp, RNC) Pattern: Normal: <= 5 Contractions in 10 Minutes (10/08/2016 18:00:Nena Camp, RNC) Pattern: Normal: <= 5 Contractions in 10 Minutes (10/08/2016 17:45:Nena Camp, RNC) Pattern: Normal: <= 5 Contractions in 10 Minutes (10/08/2016 17:30:Nena Camp, RNC) Resting Tone [place]: Relaxed (10/08/2016 20:45:Asad Godoy RN) Resting Tone [place]: Relaxed (10/08/2016 20:30:Leonor Richardson RN) Resting Tone [place]: Relaxed (10/08/2016 20:15:Leonor Richardson RN) Resting Tone [place]: Relaxed (10/08/2016 20:00:Leonor Richardson RN) Resting Tone [place]: Relaxed (10/08/2016 19:45:Leonor Richardson RN) Resting Tone [place]: Relaxed (10/08/2016 19:30:Leonor Richardson RN) Resting Tone [place]: Relaxed (10/08/2016 19:15:Leonor Richardson RN) Resting Tone [place]: Relaxed (10/08/2016 19:00:Madhavi Blackman RN) Resting Tone [place]: Relaxed (10/08/2016 18:45:Madhavi Blackman RN) Resting Tone [place]: Relaxed (10/08/2016 18:29:VINNY Mueller) Resting Tone [place]: Relaxed (10/08/2016 18:15:Madhavi Blackman RN) Resting Tone [place]: Relaxed (10/08/2016 18:00:VINNY Mueller) Resting Tone [place]: Relaxed (10/08/2016 18:00:Madhavi Blackman RN) Resting Tone [place]: Relaxed (10/08/2016 17:45:VINNY Mueller) Resting Tone [place]: Relaxed (10/08/2016 17:30:VINNY Mueller) Resting Tone [place]: Relaxed (10/08/2016 17:15:Madhavi Blackman RN) Resting Tone [place]: Relaxed (10/08/2016 17:00:Madhavi Blackman RN) Resting Tone [place]: Relaxed (10/08/2016 16:45:Madhavi Blackman RN) Resting Tone [place]: Relaxed (10/08/2016 16:30:Madhavi Blackman RN) Resting Tone [place]: Relaxed (10/08/2016 16:15:Madhavi Blackman RN) Resting Tone [place]: Relaxed (10/08/2016 16:00:Madhavi Blackman RN) Resting Tone [place]: Relaxed (10/08/2016 15:30:Madhavi Blackman RN) Resting Tone [place]: Relaxed (10/08/2016 15:00:Madhavi Blackman RN) Resting Tone [place]: Relaxed (10/08/2016 13:47:Madhavi Blackman RN) Resting Tone [place]: Relaxed (10/08/2016 13:30:Madhavi Blackman RN) Resting Tone [place]: Relaxed (10/08/2016 13:00:Madhavi Blackman RN) Resting Tone [place]: Relaxed (10/08/2016 12:01:Madhavi Blackman RN) Resting Tone [place]: Relaxed (10/08/2016 11:30:Madhavi Blackman RN) VAGINAL EXAM Dilatation (cm): 10.0 (10/08/2016 20:30:Asad Godoy RN) Dilatation (cm): 10.0 (10/08/2016 19:57:Asad Godoy RN) Dilatation (cm): 9.5 (10/08/2016 19:34:Asad Godoy RN) Dilatation (cm): 5.5 (10/08/2016 18:43:Madhavi Blackman RN) Dilatation (cm): 5.0 (10/08/2016 17:50:VINNY Mueller) Dilatation (cm): 2.5 (10/08/2016 17:03:Madhavi Blackman RN) Dilatation (cm): 1.0 (10/08/2016 11:13:Madhavi Blcakman RN) Effacement (%): 100 (10/08/2016 20:30:Asad Godoy RN) Effacement (%): 100 (10/08/2016 19:57:Asad Godoy RN) Effacement (%): 100 (10/08/2016 19:34:Asad Godoy RN) Effacement (%): 100 (10/08/2016 18:43:Madhavi Blackman RN) Effacement (%): 100 (10/08/2016 17:50:VINNY Mueller) Effacement (%): 90 (10/08/2016 17:03:Madhavi Blackman RN) Effacement (%): 90 (10/08/2016 11:13:Madhavi Blackman RN) Station: 2 (10/08/2016 20:30:Asad Godoy RN) Station: 0 (10/08/2016 19:57:Asad Godoy RN) Station: 0 (10/08/2016 19:34:Asad Godoy RN) Station: -2 (10/08/2016 18:43:Madhavi Blackman RN) Station: -1 (10/08/2016 17:50:VINNY Mueller) Station: -2 (10/08/2016 17:03:Madhavi Blackman RN) Station: -1 (10/08/2016 11:13:Madhavi Blackman RN) Membranes Rupture D/ (10/08/2016 11:11:Asad Godoy RN) ROM Method: Spontaneous (10/08/2016 11:11:Asad Godoy RN) Amniotic Fluid Color: Clear (10/08/2016 11:11:Asad Godoy RN) Amniotic Fluid Amount: Moderate (10/08/2016 11:11:Asad Godoy RN) NEURO Level of Consciousness: Fully Conscious (10/08/2016 19:27:Asad Godoy RN) Level of Consciousness: Fully Conscious (10/08/2016 11:20:Madhavi Blackman RN) DTR's/Clonus: DTRs 1+; No Clonus (10/08/2016 19:27:Asad Godoy RN) DTR's/Clonus: DTRs 2+; No Clonus (10/08/2016 11:20:Madhavi Blackman RN) Headache: Denies (10/08/2016 19:27:Asad Godoy RN) Headache: Denies (10/08/2016 11:20:Madhavi Blackman RN) Dizziness: No (10/08/2016 19:27:Asad Godoy RN) Dizziness: No (10/08/2016 11:20:Madhavi Blackman RN) Blurred Vision: No (10/08/2016 19:27:Asad Godoy RN) Blurred Vision: No (10/08/2016 11:20:Madhavi Blackman RN) Extremity Numbness/Tingling : None (10/08/2016 19:27:Asad Godoy RN) Extremity Numbness/Tingling : None (10/08/2016 11:20:Madhavi Blackman RN) Extremity Movement: Full Range of Motion (10/08/2016 19:27:Asad Godoy RN) Extremity Movement: Full Range of Motion (10/08/2016 11:20:Madhavi Blackman RN) CARDIOVASCULAR Heart Rhythm: Regular (10/08/2016 19:27:Asad Godoy RN) Heart Rhythm: Regular (10/08/2016 11:20:Madhavi Blackman RN) Nailbeds: [place] (10/08/2016 19:27:Asad Godoy RN) Nailbeds: [place] (10/08/2016 11:20:Madhavi Blackman RN) Capillary Refill: Less than 3 Seconds (10/08/2016 19:27:Asad Godoy RN) Capillary Refill: Less than 3 Seconds (10/08/2016 11:20:Madhavi Blackman RN) Lower Extremities Edema: None (10/08/2016 19:27:Asad Godoy RN) Lower Extremities Edema: None (10/08/2016 11:20:Madhavi Blackman RN) Lower Extremities Edema Degree: None (10/08/2016 19:27:Asad Godoy RN) Lower Extremities Edema Degree: None (10/08/2016 11:20:Madhavi Blackman RN) Upper Extremities Edema: None (10/08/2016 19:27:Asad Godoy RN) Upper Extremities Edema: None (10/08/2016 11:20:Madhavi Blackman RN) Upper Extremities Edema Degree: None (10/08/2016 19:27:Asad Godoy RN) Upper Extremities Edema Degree: None (10/08/2016 11:20:Madhavi Blackman RN) Facial Edema: None (10/08/2016 19:27:Asad Godoy RN) Facial Edema: None (10/08/2016 11:20:Madhavi Blackman RN) Angela's Sign Left Leg: Negative (10/08/2016 11:20:Madhavi Blackman RN) Angela's Sign Right Leg: Negative (10/08/2016 11:20:Madhavi Blackman RN) DVT RISK ASSESSMENT DVT Risk Age: Age less than 41 years (10/08/2016 19:27:Asad Godoy RN) DVT Risk Age: Age less than 41 years (10/08/2016 11:20:Madhavi Blackman RN) DVT Risk BMI: BMI<31 (10/08/2016 19:27:Asad Godoy RN) DVT Risk BMI: BMI<31 (10/08/2016 11:20:Madhavi Blackman RN) DVT Risk Surgery: None Applicable (10/08/2016 19:27:Asad Godoy RN) DVT Risk Surgery: None Applicable (10/08/2016 11:20:Madhavi Blackman RN) DVT Risk Other: Women Only- or (<1 month) (10/08/2016 19:27:Asad Godoy RN) DVT Risk Other: Women Only- or (<1 month) (10/08/2016 11:20:Madhavi Blackman RN) DVT Risk Total: 1 (10/08/2016 19:27:QS system process) DVT Risk Total: 1 (10/08/2016 11:20:QS system process) DVT Risk Text: Low Risk (<10%) No specific measures, early ambulation (10/08/2016 19:27:QS system process) DVT Risk Text: Low Risk (<10%) No specific measures, early ambulation (10/08/2016 11:20:QS system process) RESPIRATORY Respiratory Effort: Unlabored; Regular Rhythm; Equal Expansion (10/08/2016 19:27:Asad Godoy RN) Respiratory Effort: Unlabored; Regular Rhythm; Equal Expansion (10/08/2016 11:20:Madhavi Blackman RN) Breath Sounds, Left: Clear and Equal (10/08/2016 19:27:Asad Godoy RN) Breath Sounds, Left: Clear and Equal (10/08/2016 11:20:Madhavi Blackman RN) Breath Sounds, Right: Clear and Equal (10/08/2016 19:27:Asad Godoy RN) Breath Sounds, Right: Clear and Equal (10/08/2016 11:20:Madhavi Blackman RN) Cough Productivity: None (10/08/2016 19:27:Asad Godoy RN) Cough Productivity: None (10/08/2016 11:20:Madhavi Blackman RN) GASTROINTESTINAL Nausea/Vomiting: Denies (10/08/2016 19:27:Asad Godoy RN) Nausea/Vomiting: Present (10/08/2016 11:43:Madhavi Blackman RN) Nausea/Vomiting: Present (10/08/2016 11:20:Madhavi Blackman RN) Bowel Sounds: Normoactive (10/08/2016 19:27:Asad Godoy RN) Bowel Sounds: Normoactive (10/08/2016 11:20:Madhavi Blackman RN) RUQ Epigastric Pain: Denies (10/08/2016 19:27:Asad Godoy RN) RUQ Epigastric Pain: Denies (10/08/2016 11:20:Madhavi Blackman RN) Bowel Patterns: Soft, Formed Stool (Annotations: last BM on 10/07/16) (10/08/2016 19:27:Asad Godoy RN) Bowel Patterns: Constipation (10/08/2016 11:20:Madhavi Blackman RN) Hemorrhoids: None (10/08/2016 19:27:Asad Godoy RN) Hemorrhoids: None (10/08/2016 11:20:Madhavi Blackman RN) Diet Type: Clear liquid diet (10/08/2016 19:27:Asad Godoy RN) Diet Type: Regular diet (10/08/2016 11:20:Madhavi Blackman RN) Last Meal: 10/07/2016 19:00 (10/08/2016 11:20:Madhavi Blackman RN) GENITOURINARY Bladder: Nondistended (10/08/2016 19:27:Asad Godoy RN) Bladder: Nondistended (10/08/2016 11:20:Madhavi Blackman RN) Catheter: [place]rellana Draining to Bedside Bag (10/08/2016 19:27:Asad Godoy RN) Frequency of Urination: No (10/08/2016 19:27:Asad Godoy RN) Frequency of Urination: Yes (10/08/2016 11:20:Madhavi Blackman RN) Urination Burning: No (10/08/2016 19:27:Asad Godoy RN) Urination Burning: Yes (10/08/2016 11:20:Madhavi Blackman RN) CVA Tenderness: No (10/08/2016 19:27:Asad Godoy RN) CVA Tenderness: No (10/08/2016 11:20:Madhavi Blackman RN) Vaginal Discharge Amount: None (10/08/2016 19:27:Asad Godoy RN) Vaginal Discharge Color: N/A (10/08/2016 19:27:Asad Godoy RN) INTEGUMENTARY Skin Color: Normal for Race (10/08/2016 19:27:Asad Godoy RN) Skin Color: Normal for Race (10/08/2016 11:20:Madhavi Blackman RN) Skin Temperature: Warm (10/08/2016 19:27:Asad Godoy RN) Skin Temperature: Warm (10/08/2016 11:20:Madhavi Blackman RN) Skin Moisture: Dry (10/08/2016 19:27:Asad Godoy RN) Skin Moisture: Dry (10/08/2016 11:20:Madhavi Blackman RN) Surgical Scars: none (10/08/2016 19:27:Asad Godoy RN) Body Piercings/Tattoos: ears pierced, multiple tattoos (10/08/2016 19:27:Asad Godoy RN) BERENICE SKIN ASSESSMENT Berenice Scale Sensory Perception: No Impairment- Responds to verbal commands. Has no sensory deficit which would limit ability to feel or voice pain or discomfort (10/08/2016 19:27:Asad Godoy RN) Berenice Scale Sensory Perception: No Impairment- Responds to verbal commands. Has no sensory deficit which would limit ability to feel or voice pain or discomfort (10/08/2016 11:20:Madhavi Blackman RN) Berenice Scale Moisture: Rarely Moist- Skin is usually dry. Linen only requires changing at routine intervals (10/08/2016 19:27:Asad Godoy RN) Berenice Scale Moisture: Occasionally Moist- Skin is occasionally moist requiring an extra linen change approximately once a day (10/08/2016 11:20:Madhavi Blackman RN) Berenice Scale Activity: Walks Frequently- Walks outside the room at least twice a day and inside room at least every 2 hours during the day. (10/08/2016 19:27:Asad Godoy RN) Berenice Scale Activity: Walks Occasionally- Walks occasionally during day, but for very short distances, with or without assistance. Spends majority of each shift in bed or chair. (10/08/2016 11:20:Madhavi Blackman RN) Berenice Scale Mobility: No Limitations- Makes major and frequent changes in position without assistance (10/08/2016 19:27:Asad Godoy RN) Berenice Scale Mobility: No Limitations- Makes major and frequent changes in position without assistance (10/08/2016 11:20:Madhavi Blackman RN) Berenice Scale Nutrition: Excellent- Eats most of every meal. Never refuses a meal. Usually eats a total of 4 or more servings of meat and dairy products. Occasionally eats between meals. Does not require supplementation (10/08/2016 19:27:Asad Godoy RN) Berenice Scale Nutrition: Probably Inadequate- Rarely eats a complete meal and generally eats only about 1/2 of any food offered. Protein intake includes only 3 servings of meat or dairy products per day. Occasionally will take a dietary supplement OR receives less than optimum amount of liquid diet or tube feeding (Annotations: Pt homeless ) (10/08/2016 11:20:Madhavi Blackman RN) Berenice Scale Friction and Shear: No Apparent Problem- Moves in bed and in chair independently and has sufficient muscle strength to lift up completely during move. Maintains good position in bed or chair at all times (10/08/2016 19:27:Asad Godoy RN) Berenice Scale Friction and Shear: No Apparent Problem- Moves in bed and in chair independently and has sufficient muscle strength to lift up completely during move. Maintains good position in bed or chair at all times (10/08/2016 11:20:Madhavi Blackman RN) Berenice Scale Total: 23 (10/08/2016 19:27:QS system process) Berenice Scale Total: 19 (10/08/2016 11:20:QS system process) Berenice Scale Risk: No Risk of Pressure Ulcer Noted at this Time (10/08/2016 19:27:QS system process) Berenice Scale Risk: No Risk of Pressure Ulcer Noted at this Time (10/08/2016 11:20:QS system process) SUPPORT Family Support: pt alone (10/08/2016 19:27:Asad Godoy RN) Family Support: Family not supportive (Annotations: Pt states she does not have a family ) (10/08/2016 11:20:Madhavi Blackman RN) Emotional State: Calm/Relaxed (10/08/2016 19:27:Asad Godoy RN) Emotional State: Restless (10/08/2016 11:20:Madhavi Blackman RN) SAFETY [place] Within Reach: Yes (10/08/2016 19:27:Asad Godoy RN) [place] Within Reach: Yes (10/08/2016 11:20:Madhavi Blackman RN) Side Rails Up: Yes (10/08/2016 19:27:Asad Godoy RN) Side Rails Up: Yes (10/08/2016 11:20:Madhavi Blackman RN) Bed Wheels Locked: Yes (10/08/2016 19:27:Asad Godoy RN) Bed Wheels Locked: Yes (10/08/2016 11:20:Madhavi Blackman RN) Arm Bands Present: Yes (10/08/2016 19:27:Asad Godoy RN) Arm Bands Present: Yes (10/08/2016 11:20:Madhavi Blackman RN) Isolation: [place] (10/08/2016 11:20:Madhavi Blackman RN) FALL SCREEN Fall Risk History of Falling: (0) No (10/08/2016 11:20:Madhavi Blackman RN) Fall Risk Secondary Diagnosis: (0) No (10/08/2016 11:20:Madhavi Blackman RN) Fall Risk Ambulatory Aid: (0) None/Bedrest/Wheelchair/Nurse Assist (10/08/2016 11:20:Madhavi Blackman RN) Fall Risk IV Therapy: (20) Yes (10/08/2016 11:20:Madhavi Blackman RN) Fall Risk Gait: (0) Normal/Bedrest/Immobile (10/08/2016 11:20:Madhavi Blackman RN) Fall Risk Mental Status: (0) Oriented to Own Ability (10/08/2016 11:20:Madhavi Blackman RN) Fall Risk Score: 20 (10/08/2016 11:20:QS system process) Fall Risk Score Definition: No Risk: No action required (10/08/2016 11:20:QS system process) RECENT TRAVEL/INFECTIOUS DISEASE Recent Exp Communicable Disease: No (10/08/2016 11:20:Madhavi Blackman RN) Cough or Fever: No (10/08/2016 11:20:Madhavi Blackman RN) Foreign Travel Past 10 Days: No (10/08/2016 11:20:Madhavi Blackman RN) Open Wounds or Sores: No (10/08/2016 11:20:Madhavi Blackman RN) Prior Antibiotic Resistance Tx: No (10/08/2016 11:20:Madhavi Blackman RN) Cultures Obtained: Not Applicable (10/08/2016 11:20:Madhavi Blackman RN) Isolation Initiated: No (10/08/2016 11:20:Madhavi Blackman RN) Pt/Family Education: Handwashing Hygiene (10/08/2016 11:20:Madhavi Blackman RN) BABY A FHR Baseline Rate (bpm) Baby A: 90 (10/08/2016 20:50:Asad Godoy RN) FHR Baseline Rate (bpm) Baby A: 110 (10/08/2016 20:45:Asad Godoy RN) FHR Baseline Rate (bpm) Baby A: 110 (10/08/2016 20:40:Asad Godoy RN) FHR Baseline Rate (bpm) Baby A: 125 (10/08/2016 20:30:Leonor Richardson RN) FHR Baseline Rate (bpm) Baby A: 125 (10/08/2016 20:15:Leonor Richardson RN) FHR Baseline Rate (bpm) Baby A: 120 (10/08/2016 20:00:Leonor Richardson RN) FHR Baseline Rate (bpm) Baby A: 120 (10/08/2016 19:45:Leonor Richardson RN) FHR Baseline Rate (bpm) Baby A: 120 (10/08/2016 19:30:Leonor Richardson RN) FHR Baseline Rate (bpm) Baby A: 125 (10/08/2016 19:15:Leonor Richardson RN) FHR Baseline Rate (bpm) Baby A: 125 (10/08/2016 19:00:Madhavi Blackman RN) FHR Baseline Rate (bpm) Baby A: 130 (10/08/2016 18:45:Madhavi Blackman RN) FHR Baseline Rate (bpm) Baby A: 115 (10/08/2016 18:15:Madhavi Blackman RN) FHR Baseline Rate (bpm) Baby A: 115 (10/08/2016 18:00:Madhavi Blackman RN) FHR Baseline Rate (bpm) Baby A: 115 (10/08/2016 17:45:VINNY Mueller) FHR Baseline Rate (bpm) Baby A: 115 (10/08/2016 17:30:VINNY Mueller) FHR Baseline Rate (bpm) Baby A: 125 (10/08/2016 17:15:Madhavi Blackman RN) FHR Baseline Rate (bpm) Baby A: 125 (10/08/2016 17:00:Madhavi Blackman RN) FHR Baseline Rate (bpm) Baby A: 125 (10/08/2016 16:45:Madhavi Blackman RN) FHR Baseline Rate (bpm) Baby A: 125 (10/08/2016 16:30:Madhavi Blackman RN) FHR Baseline Rate (bpm) Baby A: 115 (10/08/2016 16:15:Madhavi Blackman RN) FHR Baseline Rate (bpm) Baby A: 115 (10/08/2016 16:00:Madhavi Blackman RN) FHR Baseline Rate (bpm) Baby A: 115 (10/08/2016 15:30:Madhavi Blackman RN) FHR Baseline Rate (bpm) Baby A: 115 (10/08/2016 15:00:Madhavi Blackman RN) FHR Baseline Rate (bpm) Baby A: 115 (10/08/2016 13:47:Madhavi Blackman RN) FHR Baseline Rate (bpm) Baby A: 115 (10/08/2016 13:30:Madhavi Blackman RN) FHR Baseline Rate (bpm) Baby A: 115 (10/08/2016 13:00:Madhavi Blackman RN) FHR Baseline Rate (bpm) Baby A: 120 (10/08/2016 12:00:Madhavi Blackman RN) FHR Baseline Rate (bpm) Baby A: 120 (10/08/2016 11:30:Madhavi Blackman RN) Variability Baby A: Moderate 6-25 bpm (10/08/2016 20:45:Asad Godoy RN) Variability Baby A: Moderate 6-25 bpm (10/08/2016 20:30:Leonor Richardson RN) Variability Baby A: Moderate 6-25 bpm (10/08/2016 20:15:Leonor Richardson RN) Variability Baby A: Moderate 6-25 bpm (10/08/2016 20:00:Leonor Richardson RN) Variability Baby A: Moderate 6-25 bpm (10/08/2016 19:45:Leonor Richardson RN) Variability Baby A: Moderate 6-25 bpm (10/08/2016 19:30:Leonor Richardson RN) Variability Baby A: Moderate 6-25 bpm (10/08/2016 19:15:Leonor Richardson RN) Variability Baby A: Moderate 6-25 bpm (10/08/2016 19:00:Madhavi Blackman RN) Variability Baby A: Moderate 6-25 bpm (10/08/2016 18:45:Madhavi Blackman RN) Variability Baby A: Moderate 6-25 bpm (10/08/2016 18:15:Madhavi Blackman RN) Variability Baby A: Moderate 6-25 bpm (10/08/2016 18:00:Madhavi Blackman RN) Variability Baby A: Moderate 6-25 bpm (10/08/2016 17:45:VINNY Mueller) Variability Baby A: Moderate 6-25 bpm (10/08/2016 17:30:VINNY Mueller) Variability Baby A: Moderate 6-25 bpm (10/08/2016 17:15:Madhavi Blackman RN) Variability Baby A: Moderate 6-25 bpm (10/08/2016 17:00:Madhavi Blackman RN) Variability Baby A: Moderate 6-25 bpm (10/08/2016 16:45:Madhavi Blackman RN) Variability Baby A: Moderate 6-25 bpm (10/08/2016 16:30:Madhavi Blackman RN) Variability Baby A: Moderate 6-25 bpm (10/08/2016 16:15:Madhavi Blackman RN) Variability Baby A: Moderate 6-25 bpm (10/08/2016 16:00:Madhavi Blackman RN) Variability Baby A: Moderate 6-25 bpm (10/08/2016 15:30:Madhavi Blackman RN) Variability Baby A: Moderate 6-25 bpm (10/08/2016 15:00:Madhavi Blackman RN) Variability Baby A: Moderate 6-25 bpm (10/08/2016 13:47:Madhavi Blackman RN) Variability Baby A: Moderate 6-25 bpm (10/08/2016 13:30:Madhavi Blackman RN) Variability Baby A: Moderate 6-25 bpm (10/08/2016 13:00:Madhavi Blackman RN) Variability Baby A: Moderate 6-25 bpm (10/08/2016 12:00:Madhavi Blackman RN) Variability Baby A: Moderate 6-25 bpm (10/08/2016 11:30:Madhavi Blackman RN) Accelerations Baby A: None (10/08/2016 20:45:Asad Godoy RN) Accelerations Baby A: None (10/08/2016 19:00:Madhavi Blackman RN) Accelerations Baby A: 15X15 (10/08/2016 18:45:Madhavi Blackman RN) Accelerations Baby A: 15X15 (10/08/2016 18:15:Madhavi Blackman RN) Accelerations Baby A: None (10/08/2016 18:00:Madhavi Blackman RN) Accelerations Baby A: None (10/08/2016 17:45:VINNY Mueller) Accelerations Baby A: 15X15 (10/08/2016 17:30:VINNY Mueller) Accelerations Baby A: 15X15 (10/08/2016 17:15:Madhavi Blackman RN) Accelerations Baby A: 15X15 (10/08/2016 17:00:Madhavi Blackman RN) Accelerations Baby A: 15X15 (10/08/2016 16:45:Madhavi Blackman RN) Accelerations Baby A: 15X15 (10/08/2016 16:30:Madhavi Blackman RN) Accelerations Baby A: 15X15 (10/08/2016 16:15:Madhavi Blackman RN) Accelerations Baby A: 15X15 (10/08/2016 16:00:Madhavi Blackman RN) Accelerations Baby A: 15X15 (10/08/2016 15:30:Madhavi Blackman RN) Accelerations Baby A: 15X15 (10/08/2016 15:00:Madhavi Blackman RN) Accelerations Baby A: 15X15 (10/08/2016 13:47:Madhavi Blackman RN) Accelerations Baby A: 15X15 (10/08/2016 13:30:Madhavi Blackman RN) Accelerations Baby A: 15X15 (10/08/2016 13:00:Madhavi Blackman RN) Accelerations Baby A: 15X15 (10/08/2016 12:00:Madhavi Blackman RN) Accelerations Baby A: None (10/08/2016 11:30:Madhavi Blackman RN) Decelerations Baby A: Variable; Prolonged (10/08/2016 20:45:Asad Godoy RN) Decelerations Baby A: Early; Variable (10/08/2016 20:30:Leonor Richardson RN) Decelerations Baby A: Early; Variable (10/08/2016 20:15:Leonor Richardson RN) Decelerations Baby A: Variable (10/08/2016 20:00:Leonor Richardson RN) Decelerations Baby A: Early (10/08/2016 19:45:Leonor Richardson RN) Decelerations Baby A: Variable (10/08/2016 19:30:Leonor Richardson RN) Decelerations Baby A: Variable (10/08/2016 19:15:Leonor Richardson RN) Decelerations Baby A: Variable (10/08/2016 19:00:Madhavi Blackman RN) Decelerations Baby A: Early (10/08/2016 18:45:Madhavi Blackman RN) Decelerations Baby A: Early (10/08/2016 18:15:Madhavi Blackman RN) Decelerations Baby A: Early (10/08/2016 18:00:Madhavi Blackman RN) Decelerations Baby A: Early (10/08/2016 17:45:VINNY Mueller) Decelerations Baby A: Early (10/08/2016 17:30:VINNY Mueller) Decelerations Baby A: None (10/08/2016 17:15:Madhavi Blackman RN) Decelerations Baby A: None (10/08/2016 17:00:Madhavi Blackman RN) Decelerations Baby A: None (10/08/2016 16:45:Madhavi Blackman RN) Decelerations Baby A: None (10/08/2016 16:30:Madhavi Blackman RN) Decelerations Baby A: None (10/08/2016 16:15:Madhavi Blackman RN) Decelerations Baby A: None (10/08/2016 16:00:Madhavi Blackman RN) Decelerations Baby A: None (10/08/2016 15:30:Madhavi Blackman RN) Decelerations Baby A: None (10/08/2016 15:00:Madhavi Blackman RN) Decelerations Baby A: None (10/08/2016 13:47:Madhavi Blackman RN) Decelerations Baby A: None (10/08/2016 13:30:Madhavi Blackman RN) Decelerations Baby A: None (10/08/2016 13:00:Madhavi Blackman RN) Decelerations Baby A: None (10/08/2016 12:00:Madhavi Blackman RN) Decelerations Baby A: None (10/08/2016 11:30:Madhavi Blackman RN)
--- NOTE | 2016-10-09 04:48 | L&D Discharge Summary ---
OB Discharge Summary Datetime Report Generated by CPN: 10/09/2016 04:45 DISCHARGE DIAGNOSIS Gestation: 39.1 Number of Babies in Womb: 1 Parity: 0
[2016-10-09] MEDS: IBUPROFEN 800 MG TABLET PO SCH ×3 (05:11→22:08)
[2016-10-09 06:51] LABS: HEMATOCRIT 27.9 % (36.0-47.0); HEMOGLOBIN 9.4 g/dL (12.0-15.5); HGB HCT DIFFERENCE 0.3; MEAN CORPUSCULAR HEMOGLOBIN 27.4 pg (27.0-33.4); MEAN CORPUSCULAR HGB CONC 33.6 g/dL (32.0-36.0); MEAN CORPUSCULAR VOLUME 82 fl (80-97); RED BLOOD COUNT 3.42 10^6/uL (3.72-5.28); RED CELL DISTRIBUTION WIDTH 16.6 % (11.5-14.0); WHITE BLOOD COUNT 14.2 10^3/uL (4.0-10.5)
--- NOTE | 2016-10-09 08:04 | PDOC PROGRESS REPORT ---
Subjective-OB Subjective: Post Delivery Day: 1 31 year old. Denies any needs at this time, states lochia is stable, pain well controled, voiding without difficulty. Physical Exam (OB) Vital Signs: Temp Pulse Resp BP Pulse Ox 98.1 F 83 18 133/90 H 97 10/09/16 04:27 10/09/16 04:27 10/09/16 04:27 10/09/16 04:27 10/09/16 04:27 Intake & Output 10/08/16 10/09/16 10/10/16 06:59 06:59 06:59 Weight 64.6 kg - Lochia Lochia Amount: Small 10-25 ml Lochia Color: Rubra/Red - Abdomen Description: Soft, Round Hernia Present: No Fundal Description: Firm, Midline Fundal Height: u/u - u/2 Objective-Diagnostic Laboratory: 10/09/16 06:38 10/08/16 11:51 10/08/16 10/08/16 10/08/16 11:01 11:51 11:51 WBC 10.9 H RBC 4.04 Hgb 11.1 L Hct 32.7 L MCV 81 MCH 27.3 MCHC 33.8 RDW 17.1 H Plt Count 329 Seg Neutrophils % 70.3 Lymphocytes % 17.9 Monocytes % 10.2 Eosinophils % 1.1 Basophils % 0.5 Absolute Neutrophils 7.6 Absolute Lymphocytes 2.0 Absolute Monocytes 1.1 Absolute Eosinophils 0.1 Absolute Basophils 0.0 Sodium Potassium Chloride Carbon Dioxide Anion Gap BUN Creatinine Est GFR ( Amer) Est GFR (Non-Af Amer) Glucose Calcium Total Bilirubin AST ALT Alkaline Phosphatase Total Protein Albumin Urine Color YELLOW Urine Appearance TURBID Urine pH 7.0 Ur Specific [place] 1.011 Urine Protein NEGATIVE Urine Glucose (UA) NEGATIVE Urine Ketones NEGATIVE Urine Blood NEGATIVE Urine Nitrite NEGATIVE Ur Leukocyte Esterase MODERATE H Urine WBC (Auto) 6 Urine RBC (Auto) 1 Blood Type O POSITIVE Antibody Screen NEGATIVE 10/08/16 10/09/16 11:51 06:38 WBC 14.2 H RBC 3.42 L Hgb 9.4 L Hct 27.9 L MCV 82 MCH 27.4 MCHC 33.6 RDW 16.6 H Plt Count 264 Seg Neutrophils % Lymphocytes % Monocytes % Eosinophils % Basophils % Absolute Neutrophils Absolute Lymphocytes Absolute Monocytes Absolute Eosinophils Absolute Basophils Sodium 135.8 L Potassium 4.2 Chloride 106 Carbon Dioxide 20 L Anion Gap 10 BUN 10 Creatinine 0.59 Est GFR ( Amer) > 60 Est GFR (Non-Af Amer) > 60 Glucose 78 Calcium 9.6 Total Bilirubin 0.4 AST 23 ALT 26 Alkaline Phosphatase 261 H Total Protein 5.5 L Albumin 2.7 L Urine Color Urine Appearance Urine pH Ur Specific [place] Urine Protein Urine Glucose (UA) Urine Ketones Urine Blood Urine Nitrite Ur Leukocyte Esterase Urine WBC (Auto) Urine RBC (Auto) Blood Type Antibody Screen Assessment and Plan(PN) - Assessment and Plan (1) Vaginal delivery Is this a current diagnosis for this admission?: YesPlan: routine pp care (2) with adoption planned, antepartum Is this a current diagnosis for this admission?: YesPlan: d/c planning, sw involved (3) Acute blood loss anemia Is this a current diagnosis for this admission?: YesPlan: ferrous sulfate increase dietary iron (4) Substance abuse Is this a current diagnosis for this admission?: YesPlan: d/c planning - Time Spent with Patient Time with patient: Less than 15 minutes Critical Time spent with patient: Less than 15 minutes Medications reviewed and adjusted accordingly: Yes - Disposition Anticipated Discharge: Home Within: within 24 hours
[2016-10-09] MEDS: PRENATAL VITAMIN W-O CA NO5/FE FUMARATE/FA CAPSULE PO SCH (09:21)
[2016-10-09] MEDS: SENNOSIDES/DOCUSATE 8.6-50 MG 1 EACH TABLET PO SCH (09:21)
[2016-10-09] MEDS: DOCUSATE SODIUM 100 MG CAPSULE PO SCH ×2 (09:21→18:08)
[2016-10-09] MEDS: FERROUS SULFATE 325 MG TABLET PO SCH ×2 (09:21→18:08)
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
--- NOTE | 2016-10-09 10:46 | L&D General Admission ---
General Admit Datetime Report Generated by CPN: 10/09/2016 10:45 INFORMATION Patient Age: 31 (10/08/2016 10:53:QS system process) EDC: 10/14/2016 00:00 (10/08/2016 11:11:Madhavi Blackman RN) : 1 (10/08/2016 11:11:Madhavi Blackman RN) Para: 0 (10/08/2016 11:11:Madhavi Blackman RN) Term: 0 (10/08/2016 11:11:Madhavi Blackman RN) : 0 (10/08/2016 11:11:Madhavi Blackman RN) Spontaneous Abortions: 0 (10/08/2016 11:11:Madhavi Blackman RN) Induced Abortions: 0 (10/08/2016 11:11:Madhavi Blackman RN) Livin (10/08/2016 11:11:Madhavi Blackman RN) Cesareans: 0 (10/08/2016 11:11:Madhavi Blackman RN) VBACs: 0 (10/08/2016 11:11:Madhavi Blackman RN) Ectopic: 0 (10/08/2016 11:11:Madhavi Blackman RN) Multiple Births: 0 (10/08/2016 11:11:Madhavi Blackman RN) Baby, Number in Womb: 1 (10/08/2016 11:11:Leonor Richardson RN) CARE Primary Entry Level Sales Associate: Other-Annotate (10/08/2016 11:11:Madhavi Blackman RN) Entry Level Sales Associate Other: No care (10/08/2016 11:11:Madhavi Blackman RN) Adequate Care: No (10/08/2016 11:11:Madhavi Blackman RN) Height (in): 61 (10/09/2016 08:53:QS system process) Height (in): 61 (10/09/2016 08:50:QS system process) Height (in): 61 (10/08/2016 23:48:QS system process) Height (in): 61 (10/08/2016 15:55:QS system process) Height (in): 61 (10/08/2016 12:35:QS system process) Height (in): 61 (10/08/2016 11:24:QS system process) ALLERGIES Medication Allergy: No (10/08/2016 11:11:Madhavi BlackmanALEXANDRA) Medication Allergies: No Known Allergies (02/23/2011) (10/08/2016 10:53:QS system process) Latex Allergy: No Latex Allergies (10/08/2016 11:11:Madhavi Blackman RN) COMMUNICATION Primary Language: Upper Sorbian (10/08/2016 11:11:Madhavi Blackman RN) Medical Tx Preferred Language: Upper Sorbian (10/08/2016 11:11:Madhavi Blackman RN) DEMOGRAPHICS Address: [address] [place] [address] [place] [address] (10/08/2016 10:53:QS system process) Zipcode: [id number] (10/08/2016 10:53:QS system process) Home (10/08/2016 10:53:QS system process) N: [phone] (10/08/2016 10:53:QS system process) Next of Kin Name: DECLINED PT (10/08/2016 10:53:QS system process) Next of Kin (10/08/2016 10:53:QS system process) Next of Kin Relationship: OR (10/08/2016 10:53:QS system process) Date of : 1985 (10/08/2016 10:53:QS system process) Marital Status: Single (10/08/2016 10:53:QS system process) Sex: Female (10/08/2016 10:53:QS system process) Occupation: None (10/08/2016 11:11:Asad Godoy RN) Race: (10/08/2016 10:53:QS system process) Ethnicity: Non- or (10/08/2016 10:53:QS system process) Presybeterian: None (10/08/2016 10:53:QS system process) FOB Involved: No (10/08/2016 11:11:Asad Godoy RN) Father of Baby Name: unknown (10/08/2016 11:11:Asad Godoy RN) DRUG AND ALCOHOL USE Alcohol: Yes (10/08/2016 11:11:Madhavi Blackman RN) Average Alcohol Consumption: <2 per day (10/08/2016 11:11:Madhavi Blackman RN) Advised to Stop Alcohol: Yes (10/08/2016 11:11:Madhavi Blackman RN) Alcohol Comments: Pt states she had a beer last night (10/08/2016 11:11:Madhavi Blackman RN) Cigarettes: Current Everyday Smoker. [id number] (10/08/2016 11:11:Madhavi Blackman RN) Average Cigarettes Smoked: > 10 per day (10/08/2016 11:11:Madhavi Blackman RN) Advised to Stop Smoking: Yes (10/08/2016 11:11:Madhavi Blackman RN) Marijuana: No (10/08/2016 11:11:Madhavi Blackman RN) Cocaine: No (10/08/2016 11:11:Madhavi Blackman RN) Other Illicit Drugs: No (10/08/2016 11:11:Madhavi Blackman RN) VACCINE HISTORY Influenza Vaccine: No (10/08/2016 11:11:Madhavi Blackman RN) Pneumococcal Vaccine: No (10/08/2016 11:11:Madhavi Blackman RN) Tetanus Vaccine: Yes (10/08/2016 11:11:Madhavi Blackman RN) Tdap Vaccine: No (10/08/2016 11:11:Madhavi Blackman RN) Hepatitis B Vaccine: Yes (10/08/2016 11:11:Madhavi Blackman RN) Automobile Mechanic Motor: [facility] (10/08/2016 11:11:Asad Godoy RN) Feeding Preference: Formula (10/08/2016 11:11:Leonor Richardson RN) Circumcision: N/A (10/08/2016 11:11:Asad Godoy RN) Classes Attended: No (10/08/2016 11:11:Asad Godoy RN) Tubal Ligation: No (10/08/2016 11:11:Asad Godoy RN) Tubal Authorization Signed: N/A (10/08/2016 11:11:Asad Godoy RN) Consent: N/A (10/08/2016 11:11:Asad Godoy RN) Consent Signed: N/A (10/08/2016 11:11:Asad Godoy RN) Pain Management Plans: Epidural (10/08/2016 11:11:Madhavi Blackman RN) Plans for Labor and Delivery: None (10/08/2016 11:11:Madhavi Blackman RN) Other Labor and Delivery Plans: Plans to give baby up for adoption (10/08/2016 11:11:Asad Godoy RN) Support Person: none (10/08/2016 11:11:Asad Godoy RN) Other Relationship: none (10/08/2016 11:11:Asad Godoy RN) Cultural/Spritual Practice: No (10/08/2016 11:11:Asad Godoy RN) Spir/Cult Dietary Needs: No (10/08/2016 11:11:Asad Godoy RN) LIVING SITUATION/DISCHARGE PLAN Living Arrangements: Homeless (10/08/2016 11:11:Madhavi Blackman RN) WIC Program: Needs referral (10/08/2016 11:11:Madhavi Blackman RN) Currently Using Commun Resources: No (10/08/2016 11:11:Madhavi Blackman RN) Outside Agency/Service And Repair Supervisor: No (10/08/2016 11:11:Madhavi Blackman RN) Car Seat for Discharge: N/A (10/08/2016 11:11:Madhavi Blackman RN) Adoption Requested: Yes (10/08/2016 11:11:Madhavi Blackman RN) Pt Contact w/ Post : No (10/08/2016 11:11:Madhavi Blackman RN) LABS Blood Type: O Positive (10/08/2016 11:11:Madhavi Blackman RN) Antibody Screen: Negative (10/08/2016 11:11:Madhavi Blackman RN) Hemoglobin: 9.4 L (10/09/2016 06:38:QS system process) Hemoglobin: 11.1 L (10/08/2016 11:51:QS system process) Hematocrit: 27.9 L (10/09/2016 06:38:QS system process) Hematocrit: 32.7 L (10/08/2016 11:51:QS system process) MCV: 82 (10/09/2016 06:38:QS system process) MCV: 81 (10/08/2016 11:51:QS system process) Group Beta Strep: Unknown (10/08/2016 11:11:Madhavi Blackman RN) Gonorrhea: Positive (10/08/2016 11:11:Madhavi Blackman RN) Chlamydia: Negative (10/08/2016 11:11:Madhavi Blackman RN) HIV Results: NEGATIVE (10/08/2016 11:54:QS system process) Rubella: Immune (10/08/2016 11:51:Asad Godoy RN) Rubella Titer: 3.48 (10/08/2016 11:51:QS system process) OB/PREVIOUS HISTORY Current Procedures: Ultrasound (10/08/2016 11:11:Asad Godoy RN) History of Previous : No (10/08/2016 11:11:Asad Godoy RN) History of Gestational Diabetes: No (10/08/2016 11:11:Asad Godoy RN) History of PIH: No (10/08/2016 11:11:Asad Godoy RN) History of Incompetent Cervix: No (10/08/2016 11:11:Asad Godoy RN) History of Placenta Previa/Abrup: No (10/08/2016 11:11:Asad Godoy RN) History of Macrosomia: No (10/08/2016 11:11:Asad Godoy RN) History of IUGR: Yes (10/08/2016 11:11:Asad Godoy RN) History of Hemorrhage: No (10/08/2016 11:11:Asad Godoy RN) History of Loss/Stillborn: No (10/08/2016 11:11:Asad Godoy RN) History of : No (10/08/2016 11:11:Aasd Godoy RN) History of D (Rh) Sensitization: No (10/08/2016 11:11:Asad Godoy RN) History Recurrent Loss/Stillborn: No (10/08/2016 11:11:Asad Godoy RN) History Depression/PP Depression: No (10/08/2016 11:11:Asad Godoy RN) History of Uterine Anomaly/JEAN-CLAUDE: No (10/08/2016 11:11:Asad Godoy RN) History of Infertility: No (10/08/2016 11:11:Asad Godoy RN) History of ART Treatment: No (10/08/2016 11:11:Asad Godoy RN) History of JEAN-CLAUDE: No (10/08/2016 11:11:Asad Godoy RN) Comments Obstetrical History: G1- Current, severe IUGR (10/08/2016 11:11:Asad Godoy RN) MEDICAL HISTORY Med Hx Diabetes: No (10/08/2016 11:11:Asad Godoy RN) Med Hx Hypertension: No (10/08/2016 11:11:Asad Godoy RN) Med Hx Heart Disease: No (10/08/2016 11:11:Asad Godoy RN) Med Hx Autoimmune Disorder: No (10/08/2016 11:11:Asad Godoy RN) Med Hx Kidney Disease/UTI: No (10/08/2016 11:11:Asad Godoy RN) Med Hx Neurologic/Epilepsy: No (10/08/2016 11:11:Asad Godoy RN) Med Hx Psychiatric Disorders: No (10/08/2016 11:11:Asad Godoy RN) Med Hx Hepatitis/Liver Disease: No (10/08/2016 11:11:Asad Godoy RN) Med Hx Varicosities/Phlebitis: No (10/08/2016 11:11:Asad Godoy RN) Med Hx Thyroid Dysfunction: No (10/08/2016 11:11:Asad Godoy RN) Med Hx Trauma/Violence: No (10/08/2016 11:11:Asad Godoy RN) Med Hx Blood Transfusion: No (10/08/2016 11:11:Asad Godoy RN) Med Hx Pulmonary (Asthma,TB): No (10/08/2016 11:11:Asad Godoy RN) Med Hx Breast: No (10/08/2016 11:11:Asad Godoy RN) Med Hx SOCK FOLDER Surgery: No (10/08/2016 11:11:Asad Godoy RN) Med Hx Hospitalization/Surgery: No (10/08/2016 11:11:Asad Godoy RN) Med Hx Anesthetic Complications: No (10/08/2016 11:11:Asad Godoy RN) Med Hx Abnormal Pap Smear: No (10/08/2016 11:11:Asad Godoy RN) Other Medical Diseases: No (10/08/2016 11:11:Asad Godoy RN) Med Hx Significant Family Hx: No (10/08/2016 11:11:Asad Godoy RN) INFECTIOUS HISTORY Inf Hx Gonorrhea: Yes (10/08/2016 11:11:Asad Godoy RN) Inf Hx Chlamydia: No (10/08/2016 11:11:Asad Godoy RN) Inf Hx Syphilis: No (10/08/2016 11:11:Asad Godoy RN) Inf Hx HIV/AIDS: No (10/08/2016 11:11:Asad Godoy RN) Inf Hx Human Papilloma Virus: No (10/08/2016 11:11:Asad Godoy RN) Inf Hx Pt/Partner Genital Herpes: No (10/08/2016 11:11:Asad Godoy RN) Inf Hx Tuberculosis/Exposure: No (10/08/2016 11:11:Asad Godoy RN) Inf Hx Hepatitis B,C: No (10/08/2016 11:11:Asad Godoy RN) Inf Hx Rash or Viral Illness: No (10/08/2016 11:11:Asad Godoy RN) Details of Infectious Hx: Positive for gonorrhea with this , treated upon admission to hospital (10/08/2016 11:11:Asad Godoy RN) GENETIC HISTORY Gen Hx Age >=35 at [facility]: No (10/08/2016 11:11:Asad Godoy RN) Gen Hx Thalassemia: No (10/08/2016 11:11:Asad Godoy RN) Gen Hx Congenital Heart Defect: No (10/08/2016 11:11:Asad Godoy RN) Gen Hx Neural Tube Defect: No (10/08/2016 11:11:Asad Godoy RN) Gen Hx Down's Syndrome: No (10/08/2016 11:11:Asad Godoy RN) Gen Hx Sandoval-Sachs: No (10/08/2016 11:11:Asad Godoy RN) Gen Hx Chapin: No (10/08/2016 11:11:sAad Godoy RN) Gen Hx Familial Dysautonomia: No (10/08/2016 11:11:Asad Godoy RN) Gen Hx Sickle Cell Disease/Trait: No (10/08/2016 11:11:Asad Godoy RN) Gen Hx Hemophilia/Blood Disorder: No (10/08/2016 11:11:Asad Godoy RN) Gen Hx Muscular Dystrophy: No (10/08/2016 11:11:Asad Godoy RN) Gen Hx Cystic Fibrosis: No (10/08/2016 11:11:Asad Godoy RN) Gen Hx Huntingtons Chorea: No (10/08/2016 11:11:Asad Godoy RN) Gen Hx Mental Retardation/Autism: No (10/08/2016 11:11:Asad Godoy RN) Gen Hx Tested for Fragile X: No (10/08/2016 11:11:Asad Godoy RN) Gen Hx Other Inher/Chromosomal: No (10/08/2016 11:11:Asad Godoy RN) Gen Hx Maternal Metabolic DO: No (10/08/2016 11:11:Asad Godoy RN) Gen Hx Pt Father or FOB Defect: No (10/08/2016 11:11:Asad Godoy RN) Gen Hx Other Genetic History: No (10/08/2016 11:11:Asad Godoy RN) Gen Hx Drugs/Meds since LMP: No (10/08/2016 11:11:Asad Godoy RN)
--- NOTE | 2016-10-09 10:46 | L&D Flow Sheet ---
LD Flowsheet Datetime Report Generated by CPN: 10/09/2016 10:45 Datetime: 10/08/2016 23:09 Stage of : Recovery (Asad Godoy, RN) Datetime: 10/08/2016 23:03 Stage of : Recovery (Rucskristopherra Jayne, RN) NBP Sys/Betzy/Mean (mmHg): 136 (QS system process) : 92 (QS system process) : 109 (QS system process) Pulse: 72 (QS system process) Respirations: 18 (Rucsandra Jayne, RN) Pain Scale: 2 (Asad Godoy RN) Pain Presence: Intermittent (Asad Godoy RN) Pain Type: Cramping; Ache (Asad Godoy RN) Pain Location: Abdomen; Perineum (Asad Godoy RN) Pain Goal: 2 (Asad Godoy RN) Pain Relief Measures: Comfort Measures (Asad Godoy RN) Datetime: 10/08/2016 23:02 NBP Sys/Betzy/Mean (mmHg): 147 (QS system process) : 103 (QS system process) : 121 (QS system process) Pulse: 75 (QS system process) Datetime: 10/08/2016 22:46 Stage of : Recovery (Asad Godoy RN) NBP Sys/Betzy/Mean (mmHg): 139 (QS system process) : 92 (QS system process) : 111 (QS system process) Pulse: 78 (QS system process) Respirations: 18 (Asad Godoy RN) Pain Scale: 2 (Asad Godoy RN) Pain Presence: Intermittent (Asad Godoy RN) Pain Type: Cramping; Ache (Asad Godoy RN) Pain Location: Abdomen; Perineum (Asad Godoy RN) Pain Goal: 2 (Asad Godoy RN)
--- NOTE | 2016-10-09 10:47 | L&D Admission Assessment ---
LD ADM ASMT Datetime Report Generated by CPN: 10/09/2016 10:45 PATIENT ASSESSMENT Assessment Type: Ongoing Assessment (10/08/2016 19:27:Asad Godoy, RN) Assessment Type: Triage (10/08/2016 11:20:Madhavi Joshuafka, RN) WEIGHT Weight (lb): 143 (10/09/2016 08:53:QS system process) Weight (lb): 143 (10/09/2016 08:50:QS system process) Weight (lb): 143 (10/08/2016 23:48:QS system process) Weight (lb): 143 (10/08/2016 15:55:QS system process) Weight (lb): 143 (10/08/2016 12:35:QS system process) Weight (lb): 143 (10/08/2016 11:24:QS system process) Weight (kg): 65.0 (10/09/2016 08:53:QS system process) Weight (kg): 65.0 (10/09/2016 08:50:QS system process) Weight (kg): 65.0 (10/08/2016 23:48:QS system process) Weight (kg): 65.0 (10/08/2016 15:55:QS system process) Weight (kg): 65.0 (10/08/2016 12:35:QS system process) Weight (kg): 65.0 (10/08/2016 11:24:QS system process) BMI: 27.0 (10/09/2016 08:53:QS system process) BMI: 27.0 (10/09/2016 08:50:QS system process) BMI: 27.0 (10/08/2016 23:48:QS system process) BMI: 27.0 (10/08/2016 15:55:QS system process) BMI: 27.0 (10/08/2016 12:35:QS system process) ONSET OF LABOR Onset of Labor: 10/08/2016 15:47 (10/08/2016 11:11:Asad Godoy RN) PAIN Pain Scale: 2 (10/08/2016 23:03:Asad Godoy RN) Pain Scale: 2 (10/08/2016 22:46:Asad Godoy RN) Pain Scale: 2 (10/08/2016 22:33:Asad Godoy RN) Pain Scale: 2 (10/08/2016 22:31:Asad Godoy RN) Pain Scale: 0 (10/08/2016 22:16:Asad Godoy RN) Pain Scale: 0 (10/08/2016 22:02:Asad Godoy RN) Pain Scale: 0 (10/08/2016 21:48:Asad Godoy RN) Pain Scale: 0 (10/08/2016 21:31:Asad Godoy RN) Pain Scale: 0 (10/08/2016 21:16:Asad Godoy RN) Pain Scale: 0 (10/08/2016 21:01:Asad Godoy RN) Pain Scale: 5 (10/08/2016 17:14:VINNY Mueller) Pain Scale: 4 (10/08/2016 11:20:Madhavi Blackman RN) Pain Presence: Intermittent (10/08/2016 23:03:Asad Godoy RN) Pain Presence: Intermittent (10/08/2016 22:46:Asad Godoy RN) Pain Presence: Intermittent (10/08/2016 22:33:Asad Godoy RN) Pain Presence: Intermittent (10/08/2016 22:31:Asad Godoy RN) Pain Presence: None/Denies (10/08/2016 22:16:Asad Godoy RN) Pain Presence: None/Denies (10/08/2016 22:02:Asad Godoy RN) Pain Presence: None/Denies (10/08/2016 21:48:Asad Godoy RN) Pain Presence: None/Denies (10/08/2016 21:31:Asad Godoy RN) Pain Presence: None/Denies (10/08/2016 21:16:Asad Godoy RN) Pain Presence: None/Denies (10/08/2016 21:01:Asad Godoy RN) Pain Presence: Intermittent (10/08/2016 11:20:Madhavi Blackman RN) Pain Type: Cramping; Ache (10/08/2016 23:03:Asad Godoy RN) Pain Type: Cramping; Ache (10/08/2016 22:46:Asad Godoy RN) Pain Type: Cramping; Ache (10/08/2016 22:33:Asad Godoy RN) Pain Type: Cramping; Ache (10/08/2016 22:31:Asad Godoy RN) Pain Type: N/A (10/08/2016 22:16:Asad Godoy RN) Pain Type: N/A (10/08/2016 22:02:Asad Godoy RN) Pain Type: N/A (10/08/2016 21:48:Asad Godoy RN) Pain Type: N/A (10/08/2016 21:31:Asad Godoy RN) Pain Type: N/A (10/08/2016 21:16:Asad Godoy RN) Pain Type: N/A (10/08/2016 21:01:Asad Godoy RN) Pain Type: Contraction (10/08/2016 11:20:Madhavi Blackman RN) Pain Location: Abdomen; Perineum (10/08/2016 23:03:Asad Godoy RN) Pain Location: Abdomen; Perineum (10/08/2016 22:46:Asad Godoy RN) Pain Location: Abdomen; Perineum (10/08/2016 22:33:Asad Godoy RN) Pain Location: Abdomen; Perineum (10/08/2016 22:31:Asad Godoy RN) Pain Location: Abdomen (10/08/2016 11:20:Madhavi Blackman RN) Pain Goal: 2 (10/08/2016 23:03:Asad Godoy RN) Pain Goal: 2 (10/08/2016 22:46:Asad Godoy RN) Pain Goal: 2 (10/08/2016 22:33:Asad Godoy RN) Pain Goal: 2 (10/08/2016 22:31:Asad Godoy RN) Pain Goal: 0 (10/08/2016 11:20:Madhavi Blackman RN) Pain Related to Contraction: Yes (10/08/2016 11:20:Madhavi Blackman RN) Pain Comments: Dr Horowitz at bedside, pt screaming and writhing in bed c/o vaginal leaking SROM noted with clear fluid, Dr Horowitz at bedside with rupture and aware. RN and provider attempting to reassure and assist pt in regaining control (10/08/2016 17:14:VINNY Mueller) CONTRACTIONS Frequency (min): 1.5-4 (10/08/2016 20:45:Asad Godoy RN) Frequency (min): 1.5-4 (10/08/2016 20:30:Leonor Richardson RN) Frequency (min): 2-4 (10/08/2016 20:15:Leonor Richardson RN) Frequency (min): 4-5 (10/08/2016 20:00:Leonor Kossmann, RN) Frequency (min): 1-5 (10/08/2016 19:45:Leonorlubna Richardson, RN) Frequency (min): 1.5-4 (10/08/2016 19:30:Leonor Compasmann, RN) Frequency (min): 1.5-4 (10/08/2016 19:15:Leonor Compasmann, RN) Frequency (min): 2-2.5 (10/08/2016 19:00:Madhavi Joshuafka, RN) Frequency (min): 1-3 (10/08/2016 18:45:Madhavi Marhefka, RN) Frequency (min): 1-3 (10/08/2016 18:29:Nena Camp, RNC) Frequency (min): 1-4 (10/08/2016 18:15:Madhavi Marisaacfka, RN) Frequency (min): 1-4 (10/08/2016 18:00:Nena Camp, RNC) Frequency (min): 2-3 (10/08/2016 18:00:Madhavi Marisaacfka, RN) Frequency (min): 1-4 (10/08/2016 17:45:Nena Camp, RNC) Frequency (min): 1-4 (10/08/2016 17:30:Nena Camp, RNC) Frequency (min): 3-5 (10/08/2016 17:15:Madhavi Marhefka, RN) Frequency (min): 2-5 (10/08/2016 17:00:Madhavi Marhefka, RN) Frequency (min): 5-9 (10/08/2016 16:45:Madhavi Marhefka, RN) Frequency (min): 4-7 (10/08/2016 16:30:Madhavi Marhefka, RN) Frequency (min): X2 (10/08/2016 16:15:Madhavi Marhefka, RN) Frequency (min): X2 (10/08/2016 16:00:Madhavi Marhefka, RN) Frequency (min): 6-8 (10/08/2016 15:30:Madhavi Marhefka, RN) Frequency (min): X1 (10/08/2016 15:00:Madhavi Marhefka, RN) Frequency (min): X1 (10/08/2016 13:47:Madhavi Blackman, RN) Frequency (min): Irregular (10/08/2016 13:30:Madhavi Blackman, RN) Frequency (min): Irregular (10/08/2016 13:00:Madhavi Blackman, RN) Frequency (min): X2 (10/08/2016 12:01:Madhavi Blackman, RN) Frequency (min): No ctxs noted (10/08/2016 11:30:Madhavi Blackman, RN) Duration (sec): 60-90 (10/08/2016 20:45:Asad Godoy RN) Duration (sec): 50-80 (10/08/2016 20:30:Leonor Richardson RN) Duration (sec): 70-180 (10/08/2016 20:15:Leonor Richardson RN) Duration (sec): 50-120 (10/08/2016 20:00:Leonor Richardson RN) Duration (sec): 30-140 (10/08/2016 19:45:Leonor Richardson RN) Duration (sec): 60-140 (10/08/2016 19:30:Leonor Richardson RN) Duration (sec): 50-110 (10/08/2016 19:15:Leonor Richardson RN) Duration (sec): 60-120 (10/08/2016 19:00:Madhavi Blackman RN) Duration (sec): 50-80 (10/08/2016 18:45:Madhavi Blackman RN) Duration (sec): 60-100 (10/08/2016 18:29:Nena Farley, RNC) Duration (sec): 80-110 (10/08/2016 18:15:Madhavi Blackman RN) Duration (sec): 60-180 (10/08/2016 18:00:Nena Farley, RNC) Duration (sec): 60-100 (10/08/2016 18:00:Madhavi Blackman RN) Duration (sec): 50-90 (10/08/2016 17:45:Nena Farley, RNC) Duration (sec): 40-100 (10/08/2016 17:30:Nena Farley, RNC) Duration (sec): 70-160 (10/08/2016 17:15:Madhavimelissa Blackman, RN) Duration (sec): 60-120 (10/08/2016 17:00:Madhavi Kaliaka, RN) Duration (sec): 130-180 (10/08/2016 16:45:Madhavi Kaliaka, RN) Duration (sec): 70-160 (10/08/2016 16:30:Madhavi Joshuafka, RN) Duration (sec): 150-160 (10/08/2016 16:15:Madhavi Joshuafka, RN) Duration (sec): 60-110 (10/08/2016 16:00:Madhavi Joshuafka, RN) Duration (sec): 60-100 (10/08/2016 15:30:Madhavi Hiral, RN) Duration (sec): 140 (10/08/2016 15:00:Madhavi Joshuafka, RN) Duration (sec): 140 (10/08/2016 13:47:Madhavi Kaliaka, RN) Duration (sec): 90 (10/08/2016 13:30:Madhavi Joshuafka, RN) Duration (sec): 100-130 (10/08/2016 13:00:Madhavi Hiral, RN) Duration (sec): 100-220 (10/08/2016 12:01:Madhavi Blackman RN) Quality: Moderate to Strong (10/08/2016 20:45:Asad Godoy RN) Quality: Moderate (10/08/2016 20:30:Leonor Richardson RN) Quality: Moderate (10/08/2016 20:15:Leonor Richardson RN) Quality: Moderate (10/08/2016 20:00:Leonor Richardson RN) Quality: Moderate (10/08/2016 19:45:Loenor Richardson RN) Quality: Moderate (10/08/2016 19:30:Leonor Richardson RN) Quality: Moderate (10/08/2016 19:15:Leonor Richardson RN) Quality: Moderate (10/08/2016 19:00:Madhavi Blackman RN) Quality: Moderate to Strong (10/08/2016 18:45:Madhavi Blackman RN) Quality: Moderate to Strong (10/08/2016 18:29:Nena Farley, RNC) Quality: Moderate (10/08/2016 18:15:Madhavi Blackman RN) Quality: Moderate to Strong (10/08/2016 18:00:Nena Camp, RNC) Quality: Moderate (10/08/2016 18:00:Madhavi Blackman RN) Quality: Moderate (10/08/2016 17:45:Nena Camp, RNC) Quality: Moderate (10/08/2016 17:30:Nena Farley, RNC) Quality: Mild/Moderate (10/08/2016 17:15:Madhavi Blackman RN) Quality: Mild (10/08/2016 17:00:Madhavi Blackman RN) Quality: Mild (10/08/2016 16:45:Madhavi Blackman RN) Quality: Mild (10/08/2016 16:30:Madhavi Blackman RN) Quality: Mild (10/08/2016 16:15:Madhavi Blackman RN) Quality: Mild (10/08/2016 16:00:Madhavi Blackman RN) Quality: Mild (10/08/2016 15:30:Madhavi Blackman RN) Quality: Mild (10/08/2016 15:00:Madhavi Blackman RN) Quality: Mild (10/08/2016 13:47:Madhavi Blackman RN) Quality: Mild (10/08/2016 13:30:Madhavi Blackman RN) Quality: Mild (10/08/2016 13:00:Madhavi Blackman RN) Quality: Mild (10/08/2016 12:01:Madhavi Blackman RN) Quality: Mild (10/08/2016 11:30:Madhavi Blackman RN) Pattern: Normal: <= 5 Contractions in 10 Minutes (10/08/2016 18:45:Madhavi Blackman RN) Pattern: Normal: <= 5 Contractions in 10 Minutes (10/08/2016 18:29:Nena Camp, RNC) Pattern: Normal: <= 5 Contractions in 10 Minutes (10/08/2016 18:00:Nena Camp, RNC) Pattern: Normal: <= 5 Contractions in 10 Minutes (10/08/2016 17:45:Nena Camp, RNC) Pattern: Normal: <= 5 Contractions in 10 Minutes (10/08/2016 17:30:Nena Camp, RNC) Resting Tone [place]: Relaxed (10/08/2016 20:45:Asad Godoy RN) Resting Tone [place]: Relaxed (10/08/2016 20:30:Leonor Richardson RN) Resting Tone [place]: Relaxed (10/08/2016 20:15:Leonor Richardson RN) Resting Tone [place]: Relaxed (10/08/2016 20:00:Leonor Richardson RN) Resting Tone [place]: Relaxed (10/08/2016 19:45:Leonor Richardson RN) Resting Tone [place]: Relaxed (10/08/2016 19:30:Leonor Richardson RN) Resting Tone [place]: Relaxed (10/08/2016 19:15:Leonor Richardson RN) Resting Tone [place]: Relaxed (10/08/2016 19:00:Madhavi Blackman RN) Resting Tone [place]: Relaxed (10/08/2016 18:45:Madhavi Blackman RN) Resting Tone [place]: Relaxed (10/08/2016 18:29:Nena Farley, RNC) Resting Tone [place]: Relaxed (10/08/2016 18:15:Madhavi Blackman RN) Resting Tone [place]: Relaxed (10/08/2016 18:00:Nena Farley, RNC) Resting Tone [place]: Relaxed (10/08/2016 18:00:Madahvi Blackman RN) Resting Tone [place]: Relaxed (10/08/2016 17:45:Nena Farley, RNC) Resting Tone [place]: Relaxed (10/08/2016 17:30:Nena Farley, RNC) Resting Tone [place]: Relaxed (10/08/2016 17:15:Madhavi Blackman RN) Resting Tone [place]: Relaxed (10/08/2016 17:00:Madhavi Blackman RN) Resting Tone [place]: Relaxed (10/08/2016 16:45:Madhavi Blackman RN) Resting Tone [place]: Relaxed (10/08/2016 16:30:Madhavi Blackman RN) Resting Tone [place]: Relaxed (10/08/2016 16:15:Madhavi Blackman RN) Resting Tone [place]: Relaxed (10/08/2016 16:00:Madhavi Blackman RN) Resting Tone [place]: Relaxed (10/08/2016 15:30:Madhavi Blackman RN) Resting Tone [place]: Relaxed (10/08/2016 15:00:Madhavi Blackman RN) Resting Tone [place]: Relaxed (10/08/2016 13:47:Madhavi Blackman RN) Resting Tone [place]: Relaxed (10/08/2016 13:30:Madhavi Blackman RN) Resting Tone [place]: Relaxed (10/08/2016 13:00:Madhavi Blackman RN) Resting Tone [place]: Relaxed (10/08/2016 12:01:Madhavi Blackman RN) Resting Tone [place]: Relaxed (10/08/2016 11:30:Madhavi Blackman RN) VAGINAL EXAM Dilatation (cm): 10.0 (10/08/2016 20:30:Asad Godoy RN) Dilatation (cm): 10.0 (10/08/2016 19:57:Asad Godoy RN) Dilatation (cm): 9.5 (10/08/2016 19:34:Asad Godoy RN) Dilatation (cm): 5.5 (10/08/2016 18:43:Madhavi Blackman RN) Dilatation (cm): 5.0 (10/08/2016 17:50:VINNY Mueller) Dilatation (cm): 2.5 (10/08/2016 17:03:Madhavi Blackman RN) Dilatation (cm): 1.0 (10/08/2016 11:13:Madhavi Blackman RN) Effacement (%): 100 (10/08/2016 20:30:Asad Godoy RN) Effacement (%): 100 (10/08/2016 19:57:Asad Godoy RN) Effacement (%): 100 (10/08/2016 19:34:Asad Godoy RN) Effacement (%): 100 (10/08/2016 18:43:Madhavi Blackman RN) Effacement (%): 100 (10/08/2016 17:50:VINNY Mueller) Effacement (%): 90 (10/08/2016 17:03:Madhavi Blackman RN) Effacement (%): 90 (10/08/2016 11:13:Madhavi Blackman RN) Station: 2 (10/08/2016 20:30:Asad Godoy RN) Station: 0 (10/08/2016 19:57:Asad Godoy RN) Station: 0 (10/08/2016 19:34:Asad Godoy RN) Station: -2 (10/08/2016 18:43:Madhavi Blackman RN) Station: -1 (10/08/2016 17:50:VINNY Mueller) Station: -2 (10/08/2016 17:03:Madhavi Blackman RN) Station: -1 (10/08/2016 11:13:Madhavi Blackman RN) Membranes Rupture D/ (10/08/2016 11:11:Asad Godoy RN) ROM Method: Spontaneous (10/08/2016 11:11:Asad Godoy RN) Amniotic Fluid Color: Clear (10/08/2016 11:11:Asad Godoy RN) Amniotic Fluid Amount: Moderate (10/08/2016 11:11:Asad Godoy RN) NEURO Level of Consciousness: Fully Conscious (10/08/2016 19:27:Asad Godoy RN) Level of Consciousness: Fully Conscious (10/08/2016 11:20:Madhavi Blackman RN) DTR's/Clonus: DTRs 1+; No Clonus (10/08/2016 19:27:Asad Godoy RN) DTR's/Clonus: DTRs 2+; No Clonus (10/08/2016 11:20:Madhavi Blackman RN) Headache: Denies (10/08/2016 19:27:Asad Godoy RN) Headache: Denies (10/08/2016 11:20:Madhavi Blackman RN) Dizziness: No (10/08/2016 19:27:Asad Godoy RN) Dizziness: No (10/08/2016 11:20:Madhavi Blackman RN) Blurred Vision: No (10/08/2016 19:27:Asad Godoy RN) Blurred Vision: No (10/08/2016 11:20:Madhavi Blackman RN) Extremity Numbness/Tingling : None (10/08/2016 19:27:Asad Godoy RN) Extremity Numbness/Tingling : None (10/08/2016 11:20:Madhavi lBackman RN) Extremity Movement: Full Range of Motion (10/08/2016 19:27:Asad Godoy RN) Extremity Movement: Full Range of Motion (10/08/2016 11:20:Madhavi Blackman RN) CARDIOVASCULAR Heart Rhythm: Regular (10/08/2016 19:27:Asad Godoy RN) Heart Rhythm: Regular (10/08/2016 11:20:Madhavi Blackman RN) Nailbeds: [place] (10/08/2016 19:27:Asad Godoy RN) Nailbeds: [place] (10/08/2016 11:20:Madhavi Blackman RN) Capillary Refill: Less than 3 Seconds (10/08/2016 19:27:Asad Godoy RN) Capillary Refill: Less than 3 Seconds (10/08/2016 11:20:Madhavi Blackman RN) Lower Extremities Edema: None (10/08/2016 19:27:Asad Godoy RN) Lower Extremities Edema: None (10/08/2016 11:20:Madhavi Blackman RN) Lower Extremities Edema Degree: None (10/08/2016 19:27:Asad Godoy RN) Lower Extremities Edema Degree: None (10/08/2016 11:20:Madhavi Blackman RN) Upper Extremities Edema: None (10/08/2016 19:27:Asad Godoy RN) Upper Extremities Edema: None (10/08/2016 11:20:Madhavi Blackman RN) Upper Extremities Edema Degree: None (10/08/2016 19:27:Asad Godoy RN) Upper Extremities Edema Degree: None (10/08/2016 11:20:Madhavi Blackman RN) Facial Edema: None (10/08/2016 19:27:Asad Godoy RN) Facial Edema: None (10/08/2016 11:20:Madhavi Blackman RN) Angela's Sign Left Leg: Negative (10/08/2016 11:20:Madhavi Blackman RN) Angela's Sign Right Leg: Negative (10/08/2016 11:20:Madhavi Blackman RN) DVT RISK ASSESSMENT DVT Risk Age: Age less than 41 years (10/08/2016 19:27:Asad Godoy RN) DVT Risk Age: Age less than 41 years (10/08/2016 11:20:Madhavi Blackman RN) DVT Risk BMI: BMI<31 (10/08/2016 19:27:Asad Godoy RN) DVT Risk BMI: BMI<31 (10/08/2016 11:20:Madhavi Blackman RN) DVT Risk Surgery: None Applicable (10/08/2016 19:27:Asad Godoy RN) DVT Risk Surgery: None Applicable (10/08/2016 11:20:Madhavi Blackman RN) DVT Risk Other: Women Only- or (<1 month) (10/08/2016 19:27:Asad Godoy RN) DVT Risk Other: Women Only- or (<1 month) (10/08/2016 11:20:Madhavi Blackman RN) DVT Risk Total: 1 (10/08/2016 19:27:QS system process) DVT Risk Total: 1 (10/08/2016 11:20:QS system process) DVT Risk Text: Low Risk (<10%) No specific measures, early ambulation (10/08/2016 19:27:QS system process) DVT Risk Text: Low Risk (<10%) No specific measures, early ambulation (10/08/2016 11:20:QS system process) RESPIRATORY Respiratory Effort: Unlabored; Regular Rhythm; Equal Expansion (10/08/2016 19:27:Asad Godoy RN) Respiratory Effort: Unlabored; Regular Rhythm; Equal Expansion (10/08/2016 11:20:Madhavi Blackman RN) Breath Sounds, Left: Clear and Equal (10/08/2016 19:27:Asad Godoy RN) Breath Sounds, Left: Clear and Equal (10/08/2016 11:20:Madhavi Blackman RN) Breath Sounds, Right: Clear and Equal (10/08/2016 19:27:Asad Godoy RN) Breath Sounds, Right: Clear and Equal (10/08/2016 11:20:Madhavi Blackman RN) Cough Productivity: None (10/08/2016 19:27:Asad Godoy RN) Cough Productivity: None (10/08/2016 11:20:Madhavi Blackman RN) GASTROINTESTINAL Nausea/Vomiting: Denies (10/08/2016 19:27:Asad Godoy RN) Nausea/Vomiting: Present (10/08/2016 11:43:Madhavi Blackman RN) Nausea/Vomiting: Present (10/08/2016 11:20:Madhavi Blackman RN) Bowel Sounds: Normoactive (10/08/2016 19:27:Asad Godoy RN) Bowel Sounds: Normoactive (10/08/2016 11:20:Madhavi Blackman RN) RUQ Epigastric Pain: Denies (10/08/2016 19:27:Asad Godoy RN) RUQ Epigastric Pain: Denies (10/08/2016 11:20:Madhavi Blackman RN) Bowel Patterns: Soft, Formed Stool (Annotations: last BM on 10/07/16) (10/08/2016 19:27:Asad Godoy RN) Bowel Patterns: Constipation (10/08/2016 11:20:Madhavi Blackman RN) Hemorrhoids: None (10/08/2016 19:27:Asad Godoy RN) Hemorrhoids: None (10/08/2016 11:20:Madhavi Blackman RN) Diet Type: Clear liquid diet (10/08/2016 19:27:Asad Godoy RN) Diet Type: Regular diet (10/08/2016 11:20:Madhavi Blackman RN) Last Meal: 10/07/2016 19:00 (10/08/2016 11:20:Madhavi Blackman RN) GENITOURINARY Bladder: Nondistended (10/08/2016 19:27:Asad Godoy RN) Bladder: Nondistended (10/08/2016 11:20:Madhavi Blackman RN) Catheter: [place]rellana Draining to Bedside Bag (10/08/2016 19:27:Asad Godoy RN) Frequency of Urination: No (10/08/2016 19:27:Asad Godoy RN) Frequency of Urination: Yes (10/08/2016 11:20:Madhavi Blackman RN) Urination Burning: No (10/08/2016 19:27:Asad Godoy RN) Urination Burning: Yes (10/08/2016 11:20:Madhavi Blackman RN) CVA Tenderness: No (10/08/2016 19:27:Asad Godoy RN) CVA Tenderness: No (10/08/2016 11:20:Madhavi Blackman RN) Vaginal Discharge Amount: None (10/08/2016 19:27:Asad Godoy RN) Vaginal Discharge Color: N/A (10/08/2016 19:27:Asad Godoy RN) INTEGUMENTARY Skin Color: Normal for Race (10/08/2016 19:27:Asad Godoy RN) Skin Color: Normal for Race (10/08/2016 11:20:Madhavi Blackman RN) Skin Temperature: Warm (10/08/2016 19:27:Asad Godoy RN) Skin Temperature: Warm (10/08/2016 11:20:Madhavi Blackman RN) Skin Moisture: Dry (10/08/2016 19:27:Asad Godoy RN) Skin Moisture: Dry (10/08/2016 11:20:Madhavi Blackman RN) Surgical Scars: none (10/08/2016 19:27:Asad Godoy RN) Body Piercings/Tattoos: ears pierced, multiple tattoos (10/08/2016 19:27:Asad Godoy RN) BERENICE SKIN ASSESSMENT Berenice Scale Sensory Perception: No Impairment- Responds to verbal commands. Has no sensory deficit which would limit ability to feel or voice pain or discomfort (10/08/2016 19:27:Asad Godoy RN) Berenice Scale Sensory Perception: No Impairment- Responds to verbal commands. Has no sensory deficit which would limit ability to feel or voice pain or discomfort (10/08/2016 11:20:Madhavi Blackman RN) Berenice Scale Moisture: Rarely Moist- Skin is usually dry. Linen only requires changing at routine intervals (10/08/2016 19:27:Asad Godoy RN) Berenice Scale Moisture: Occasionally Moist- Skin is occasionally moist requiring an extra linen change approximately once a day (10/08/2016 11:20:Madhavi Blackman RN) Berenice Scale Activity: Walks Frequently- Walks outside the room at least twice a day and inside room at least every 2 hours during the day. (10/08/2016 19:27:Asad Godoy RN) Berenice Scale Activity: Walks Occasionally- Walks occasionally during day, but for very short distances, with or without assistance. Spends majority of each shift in bed or chair. (10/08/2016 11:20:Madhavi Blackman RN) Berenice Scale Mobility: No Limitations- Makes major and frequent changes in position without assistance (10/08/2016 19:27:Asad Godoy RN) Berenice Scale Mobility: No Limitations- Makes major and frequent changes in position without assistance (10/08/2016 11:20:Madhavi Blackman RN) Berenice Scale Nutrition: Excellent- Eats most of every meal. Never refuses a meal. Usually eats a total of 4 or more servings of meat and dairy products. Occasionally eats between meals. Does not require supplementation (10/08/2016 19:27:Asad Godoy RN) Berenice Scale Nutrition: Probably Inadequate- Rarely eats a complete meal and generally eats only about 1/2 of any food offered. Protein intake includes only 3 servings of meat or dairy products per day. Occasionally will take a dietary supplement OR receives less than optimum amount of liquid diet or tube feeding (Annotations: Pt homeless ) (10/08/2016 11:20:Madhavi Blackman RN) Berenice Scale Friction and Shear: No Apparent Problem- Moves in bed and in chair independently and has sufficient muscle strength to lift up completely during move. Maintains good position in bed or chair at all times (10/08/2016 19:27:Asad Godoy RN) Berenice Scale Friction and Shear: No Apparent Problem- Moves in bed and in chair independently and has sufficient muscle strength to lift up completely during move. Maintains good position in bed or chair at all times (10/08/2016 11:20:Madhavi Blackman RN) Berenice Scale Total: 23 (10/08/2016 19:27:QS system process) Berenice Scale Total: 19 (10/08/2016 11:20:QS system process) Berenice Scale Risk: No Risk of Pressure Ulcer Noted at this Time (10/08/2016 19:27:QS system process) Berenice Scale Risk: No Risk of Pressure Ulcer Noted at this Time (10/08/2016 11:20:QS system process) SUPPORT Family Support: pt alone (10/08/2016 19:27:Asad Godoy RN) Family Support: Family not supportive (Annotations: Pt states she does not have a family ) (10/08/2016 11:20:Madhavi Blackman RN) Emotional State: Calm/Relaxed (10/08/2016 19:27:Asad Godoy RN) Emotional State: Restless (10/08/2016 11:20:Madhavi Blackman RN) SAFETY Call [place] Within Reach: Yes (10/08/2016 19:27:Asad Godoy RN) Call [place] Within Reach: Yes (10/08/2016 11:20:Madhavi Blackman RN) Side Rails Up: Yes (10/08/2016 19:27:Asad Godoy RN) Side Rails Up: Yes (10/08/2016 11:20:Madhavi Blackman RN) Bed Wheels Locked: Yes (10/08/2016 19:27:Asad oGdoy RN) Bed Wheels Locked: Yes (10/08/2016 11:20:Madhavi Blackman RN) Arm Bands Present: Yes (10/08/2016 19:27:Asad Godoy RN) Arm Bands Present: Yes (10/08/2016 11:20:Madhavi Blackman RN) Isolation: [place] (10/08/2016 11:20:Madhavi Blackman RN) FALL SCREEN Fall Risk History of Falling: (0) No (10/08/2016 11:20:Madhavi Blackman RN) Fall Risk Secondary Diagnosis: (0) No (10/08/2016 11:20:Madhavi Blackman RN) Fall Risk Ambulatory Aid: (0) None/Bedrest/Wheelchair/Nurse Assist (10/08/2016 11:20:Madhavi Blackman RN) Fall Risk IV Therapy: (20) Yes (10/08/2016 11:20:Madhavi Blackman RN) Fall Risk Gait: (0) Normal/Bedrest/Immobile (10/08/2016 11:20:Madhavi Blackman RN) Fall Risk Mental Status: (0) Oriented to Own Ability (10/08/2016 11:20:Madhavi Blackman RN) Fall Risk Score: 20 (10/08/2016 11:20:QS system process) Fall Risk Score Definition: No Risk: No action required (10/08/2016 11:20:QS system process) RECENT TRAVEL/INFECTIOUS DISEASE Recent Exp Communicable Disease: No (10/08/2016 11:20:Madhavi Blackman RN) Cough or Fever: No (10/08/2016 11:20:Madhavi Blackman RN) Foreign Travel Past 10 Days: No (10/08/2016 11:20:Madhavi Blackman RN) Open Wounds or Sores: No (10/08/2016 11:20:Madhavi Blackman RN) Prior Antibiotic Resistance Tx: No (10/08/2016 11:20:Madhavi Blackman RN) Cultures Obtained: Not Applicable (10/08/2016 11:20:Madhavi Blackman RN) Isolation Initiated: No (10/08/2016 11:20:Madhavi Blackman RN) Pt/Family Education: Handwashing Hygiene (10/08/2016 11:20:Madhavi Blackman RN) BABY A FHR Baseline Rate (bpm) Baby A: 90 (10/08/2016 20:50:Asad Godoy RN) FHR Baseline Rate (bpm) Baby A: 110 (10/08/2016 20:45:Asad Godoy RN) FHR Baseline Rate (bpm) Baby A: 110 (10/08/2016 20:40:Asad Godoy RN) FHR Baseline Rate (bpm) Baby A: 125 (10/08/2016 20:30:Leonor Richardson RN) FHR Baseline Rate (bpm) Baby A: 125 (10/08/2016 20:15:Leonor Richardson RN) FHR Baseline Rate (bpm) Baby A: 120 (10/08/2016 20:00:Leonor Richardson RN) FHR Baseline Rate (bpm) Baby A: 120 (10/08/2016 19:45:Leonor Richardson RN) FHR Baseline Rate (bpm) Baby A: 120 (10/08/2016 19:30:Leonor Richardson RN) FHR Baseline Rate (bpm) Baby A: 125 (10/08/2016 19:15:Leonor Richardson RN) FHR Baseline Rate (bpm) Baby A: 125 (10/08/2016 19:00:Madhavi Blackman RN) FHR Baseline Rate (bpm) Baby A: 130 (10/08/2016 18:45:Madhavi Blackman RN) FHR Baseline Rate (bpm) Baby A: 115 (10/08/2016 18:15:Madhavi Blackman RN) FHR Baseline Rate (bpm) Baby A: 115 (10/08/2016 18:00:Madhavi Blackman RN) FHR Baseline Rate (bpm) Baby A: 115 (10/08/2016 17:45:VNINY Mueller) FHR Baseline Rate (bpm) Baby A: 115 (10/08/2016 17:30:VINNY Mueller) FHR Baseline Rate (bpm) Baby A: 125 (10/08/2016 17:15:Madhavi Blackman RN) FHR Baseline Rate (bpm) Baby A: 125 (10/08/2016 17:00:Madhavi Blackman RN) FHR Baseline Rate (bpm) Baby A: 125 (10/08/2016 16:45:Madhavi Blackman RN) FHR Baseline Rate (bpm) Baby A: 125 (10/08/2016 16:30:Madhavi Blackman RN) FHR Baseline Rate (bpm) Baby A: 115 (10/08/2016 16:15:Madhavi Blackman RN) FHR Baseline Rate (bpm) Baby A: 115 (10/08/2016 16:00:Madhavi Blackman RN) FHR Baseline Rate (bpm) Baby A: 115 (10/08/2016 15:30:Madhavi Blackman RN) FHR Baseline Rate (bpm) Baby A: 115 (10/08/2016 15:00:Madhavi Blackman RN) FHR Baseline Rate (bpm) Baby A: 115 (10/08/2016 13:47:Madhavi Blackman RN) FHR Baseline Rate (bpm) Baby A: 115 (10/08/2016 13:30:Madhavi Blackman RN) FHR Baseline Rate (bpm) Baby A: 115 (10/08/2016 13:00:Madhavi Blackman RN) FHR Baseline Rate (bpm) Baby A: 120 (10/08/2016 12:00:Madhavi Blackman RN) FHR Baseline Rate (bpm) Baby A: 120 (10/08/2016 11:30:Madhavi Blackman RN) Variability Baby A: Moderate 6-25 bpm (10/08/2016 20:45:Asad Godoy RN) Variability Baby A: Moderate 6-25 bpm (10/08/2016 20:30:Leonor Richardson RN) Variability Baby A: Moderate 6-25 bpm (10/08/2016 20:15:Leonor Richardson RN) Variability Baby A: Moderate 6-25 bpm (10/08/2016 20:00:Leonor Richardson RN) Variability Baby A: Moderate 6-25 bpm (10/08/2016 19:45:Leonor Richardson RN) Variability Baby A: Moderate 6-25 bpm (10/08/2016 19:30:Leonor Richardson RN) Variability Baby A: Moderate 6-25 bpm (10/08/2016 19:15:Leonor Richardson RN) Variability Baby A: Moderate 6-25 bpm (10/08/2016 19:00:Madhavi Blackman RN) Variability Baby A: Moderate 6-25 bpm (10/08/2016 18:45:Madhavi Blackman RN) Variability Baby A: Moderate 6-25 bpm (10/08/2016 18:15:Madhavi Blackman RN) Variability Baby A: Moderate 6-25 bpm (10/08/2016 18:00:Madhavi Blackman RN) Variability Baby A: Moderate 6-25 bpm (10/08/2016 17:45:VINNY Mueller) Variability Baby A: Moderate 6-25 bpm (10/08/2016 17:30:VINNY Mueller) Variability Baby A: Moderate 6-25 bpm (10/08/2016 17:15:Madhavi Blackman RN) Variability Baby A: Moderate 6-25 bpm (10/08/2016 17:00:Madhavi Blackman RN) Variability Baby A: Moderate 6-25 bpm (10/08/2016 16:45:Madhavi Blackman RN) Variability Baby A: Moderate 6-25 bpm (10/08/2016 16:30:Madhavi Blackman RN) Variability Baby A: Moderate 6-25 bpm (10/08/2016 16:15:Madhavi Blackman RN) Variability Baby A: Moderate 6-25 bpm (10/08/2016 16:00:Madhavi Blackman RN) Variability Baby A: Moderate 6-25 bpm (10/08/2016 15:30:Madhavi Blackman RN) Variability Baby A: Moderate 6-25 bpm (10/08/2016 15:00:Madhavi Blackman RN) Variability Baby A: Moderate 6-25 bpm (10/08/2016 13:47:Madhavi Blackman RN) Variability Baby A: Moderate 6-25 bpm (10/08/2016 13:30:Madhavi Blackman RN) Variability Baby A: Moderate 6-25 bpm (10/08/2016 13:00:Madhavi Blackman RN) Variability Baby A: Moderate 6-25 bpm (10/08/2016 12:00:Madhavi Blackman RN) Variability Baby A: Moderate 6-25 bpm (10/08/2016 11:30:Madhavi Blackman RN) Accelerations Baby A: None (10/08/2016 20:45:Asad Godoy RN) Accelerations Baby A: None (10/08/2016 19:00:Madhavi Blackman RN) Accelerations Baby A: 15X15 (10/08/2016 18:45:Madhavi Blackman RN) Accelerations Baby A: 15X15 (10/08/2016 18:15:Madhavi Blackman RN) Accelerations Baby A: None (10/08/2016 18:00:Madhavi Blackman RN) Accelerations Baby A: None (10/08/2016 17:45:VINNY Mueller) Accelerations Baby A: 15X15 (10/08/2016 17:30:VINNY Mueller) Accelerations Baby A: 15X15 (10/08/2016 17:15:Madhavi Blackman RN) Accelerations Baby A: 15X15 (10/08/2016 17:00:Madhavi Blackman RN) Accelerations Baby A: 15X15 (10/08/2016 16:45:Madhavi Blackman RN) Accelerations Baby A: 15X15 (10/08/2016 16:30:Madhavi Blackman RN) Accelerations Baby A: 15X15 (10/08/2016 16:15:Madhavi Blackman RN) Accelerations Baby A: 15X15 (10/08/2016 16:00:Madhavi Blackman RN) Accelerations Baby A: 15X15 (10/08/2016 15:30:Madhavi Blackman RN) Accelerations Baby A: 15X15 (10/08/2016 15:00:Madhavi Blackman RN) Accelerations Baby A: 15X15 (10/08/2016 13:47:Madhavi Blackman RN) Accelerations Baby A: 15X15 (10/08/2016 13:30:Madhavi Blackman RN) Accelerations Baby A: 15X15 (10/08/2016 13:00:Madhavi Blackman RN) Accelerations Baby A: 15X15 (10/08/2016 12:00:Madhavi Blackman RN) Accelerations Baby A: None (10/08/2016 11:30:Madhavi Blackman RN) Decelerations Baby A: Variable; Prolonged (10/08/2016 20:45:Asad Godoy RN) Decelerations Baby A: Early; Variable (10/08/2016 20:30:Leonor Richardson RN) Decelerations Baby A: Early; Variable (10/08/2016 20:15:Leonor Richardson RN) Decelerations Baby A: Variable (10/08/2016 20:00:Leonor Richardson RN) Decelerations Baby A: Early (10/08/2016 19:45:Leonor Richardson RN) Decelerations Baby A: Variable (10/08/2016 19:30:Leonor Richardson RN) Decelerations Baby A: Variable (10/08/2016 19:15:Leonor Richardson RN) Decelerations Baby A: Variable (10/08/2016 19:00:Madhavi Blackman RN) Decelerations Baby A: Early (10/08/2016 18:45:Madhavi Blackman RN) Decelerations Baby A: Early (10/08/2016 18:15:Madhavi Blackman RN) Decelerations Baby A: Early (10/08/2016 18:00:Madhavi Blackman RN) Decelerations Baby A: Early (10/08/2016 17:45:VINNY Mueller) Decelerations Baby A: Early (10/08/2016 17:30:VINNY Mueller) Decelerations Baby A: None (10/08/2016 17:15:Madhavi Blackman RN) Decelerations Baby A: None (10/08/2016 17:00:Madhavi Blackman RN) Decelerations Baby A: None (10/08/2016 16:45:Madhavi Blackman RN) Decelerations Baby A: None (10/08/2016 16:30:Madhavi Blackman RN) Decelerations Baby A: None (10/08/2016 16:15:Madhavi Blackman RN) Decelerations Baby A: None (10/08/2016 16:00:Madhavi Blackman RN) Decelerations Baby A: None (10/08/2016 15:30:Madhavi Blackman RN) Decelerations Baby A: None (10/08/2016 15:00:Madhavi Blackman RN) Decelerations Baby A: None (10/08/2016 13:47:Madhavi Blackman RN) Decelerations Baby A: None (10/08/2016 13:30:Madhavi Blackman RN) Decelerations Baby A: None (10/08/2016 13:00:Madhavi Blackman RN) Decelerations Baby A: None (10/08/2016 12:00:Madhavi Blackman RN) Decelerations Baby A: None (10/08/2016 11:30:Madhavi Blackman RN)
--- NOTE | 2016-10-09 10:47 | L&D Discharge Summary ---
OB Discharge Summary Datetime Report Generated by CPN: 10/09/2016 10:45 DISCHARGE DIAGNOSIS Gestation: 39.1 Number of Babies in Womb: 1 Parity: 0
--- NOTE | 2016-10-09 16:46 | L&D General Admission ---
General Admit Datetime Report Generated by CPN: 10/09/2016 16:45 INFORMATION Patient Age: 31 (10/08/2016 10:53:QS system process) EDC: 10/14/2016 00:00 (10/08/2016 11:11:Madhavi Blackman RN) : 1 (10/08/2016 11:11:Madhavi Blackman RN) Para: 0 (10/08/2016 11:11:Madhavi Blackman RN) Term: 0 (10/08/2016 11:11:Madhavi Blackman RN) : 0 (10/08/2016 11:11:Madhavi Blackman RN) Spontaneous Abortions: 0 (10/08/2016 11:11:Madhavi Blackman RN) Induced Abortions: 0 (10/08/2016 11:11:Madhavi Blackman RN) Livin (10/08/2016 11:11:Madhavi Blackman RN) Cesareans: 0 (10/08/2016 11:11:Madhavi Blackman RN) VBACs: 0 (10/08/2016 11:11:Madhavi Blackman RN) Ectopic: 0 (10/08/2016 11:11:Madhavi Blackman RN) Multiple Births: 0 (10/08/2016 11:11:Madhavi Blackman RN) Baby, Number in Womb: 1 (10/08/2016 11:11:Leonor Richardson RN) CARE Primary Account Development Executive: Other-Annotate (10/08/2016 11:11:Madhavi Blackman RN) Account Development Executive Other: No care (10/08/2016 11:11:Madhavi Blackman RN) Adequate Care: No (10/08/2016 11:11:Madhavi Blackman RN) Height (in): 61 (10/09/2016 08:53:QS system process) Height (in): 61 (10/09/2016 08:50:QS system process) Height (in): 61 (10/08/2016 23:48:QS system process) Height (in): 61 (10/08/2016 15:55:QS system process) Height (in): 61 (10/08/2016 12:35:QS system process) Height (in): 61 (10/08/2016 11:24:QS system process) ALLERGIES Medication Allergy: No (10/08/2016 11:11:Madhavi BlackmanALEXANDRA) Medication Allergies: No Known Allergies (02/23/2011) (10/08/2016 10:53:QS system process) Latex Allergy: No Latex Allergies (10/08/2016 11:11:Madhavi Blackman RN) COMMUNICATION Primary Language: Vietnamese (10/08/2016 11:11:Madhavi Blackman RN) Medical Tx Preferred Language: Vietnamese (10/08/2016 11:11:Madhavi Blackman RN) DEMOGRAPHICS Address: [address] [place] [address] [place] [address] (10/08/2016 10:53:QS system process) Zipcode: [id number] (10/08/2016 10:53:QS system process) Home (10/08/2016 10:53:QS system process) N: [phone] (10/08/2016 10:53:QS system process) Next of Kin Name: DECLINED PT (10/08/2016 10:53:QS system process) Next of Kin (10/08/2016 10:53:QS system process) Next of Kin Relationship: OR (10/08/2016 10:53:QS system process) Date of : 1985 (10/08/2016 10:53:QS system process) Marital Status: Single (10/08/2016 10:53:QS system process) Sex: Female (10/08/2016 10:53:QS system process) Occupation: None (10/08/2016 11:11:Asad Godoy RN) Race: (10/08/2016 10:53:QS system process) Ethnicity: Non- or (10/08/2016 10:53:QS system process) Hoahaoism: None (10/08/2016 10:53:QS system process) FOB Involved: No (10/08/2016 11:11:Asad Godoy RN) Father of Baby Name: unknown (10/08/2016 11:11:Asad Godoy RN) DRUG AND ALCOHOL USE Alcohol: Yes (10/08/2016 11:11:Madhavi Blackman RN) Average Alcohol Consumption: <2 per day (10/08/2016 11:11:Madhavi Blackman RN) Advised to Stop Alcohol: Yes (10/08/2016 11:11:Madhavi Blackman RN) Alcohol Comments: Pt states she had a beer last night (10/08/2016 11:11:Madhavi Blackman RN) Cigarettes: Current Everyday Smoker. [id number] (10/08/2016 11:11:Madhavi Blackman RN) Average Cigarettes Smoked: > 10 per day (10/08/2016 11:11:Madhavi Blackman RN) Advised to Stop Smoking: Yes (10/08/2016 11:11:Madhavi Blackman RN) Marijuana: No (10/08/2016 11:11:Madhavi Blackman RN) Cocaine: No (10/08/2016 11:11:Madhavi Blackman RN) Other Illicit Drugs: No (10/08/2016 11:11:Madhavi Blackman RN) VACCINE HISTORY Influenza Vaccine: No (10/08/2016 11:11:Madhavi Blackman RN) Pneumococcal Vaccine: No (10/08/2016 11:11:Madhavi Blackman RN) Tetanus Vaccine: Yes (10/08/2016 11:11:Madhavi Blackman RN) Tdap Vaccine: No (10/08/2016 11:11:Madhavi Blackman RN) Hepatitis B Vaccine: Yes (10/08/2016 11:11:Madhavi Blackman RN) Nuclear Medicine Technician: [facility] (10/08/2016 11:11:Asad Godoy RN) Feeding Preference: Formula (10/08/2016 11:11:Leonor Richardsno RN) Circumcision: N/A (10/08/2016 11:11:Asad Godoy RN) Classes Attended: No (10/08/2016 11:11:Asad Godoy RN) Tubal Ligation: No (10/08/2016 11:11:Asad Godoy RN) Tubal Authorization Signed: N/A (10/08/2016 11:11:Asad Godoy RN) Consent: N/A (10/08/2016 11:11:Asad Godoy RN) Consent Signed: N/A (10/08/2016 11:11:Asad Godoy RN) Pain Management Plans: Epidural (10/08/2016 11:11:Madhavi Blackman RN) Plans for Labor and Delivery: None (10/08/2016 11:11:Madhavi Blackman RN) Other Labor and Delivery Plans: Plans to give baby up for adoption (10/08/2016 11:11:Asad Godoy RN) Support Person: none (10/08/2016 11:11:Asad Godoy RN) Other Relationship: none (10/08/2016 11:11:Asad Godoy RN) Cultural/Spritual Practice: No (10/08/2016 11:11:Asad Godoy RN) Spir/Cult Dietary Needs: No (10/08/2016 11:11:Asad Godoy RN) LIVING SITUATION/DISCHARGE PLAN Living Arrangements: Homeless (10/08/2016 11:11:Madhavi Blackman RN) WIC Program: Needs referral (10/08/2016 11:11:Madhavi Blackman RN) Currently Using Commun Resources: No (10/08/2016 11:11:Madhavi Blackman RN) Outside Agency/Fuel Handler: No (10/08/2016 11:11:Madhavi Blackman RN) Car Seat for Discharge: N/A (10/08/2016 11:11:Madhavi Blackman RN) Adoption Requested: Yes (10/08/2016 11:11:Madhavi Blackman RN) Pt Contact w/ Post : No (10/08/2016 11:11:Madhavi Blackman RN) LABS Blood Type: O Positive (10/08/2016 11:11:Madhavi Blackman RN) Antibody Screen: Negative (10/08/2016 11:11:Madhavi Blackman RN) Hemoglobin: 9.4 L (10/09/2016 06:38:QS system process) Hemoglobin: 11.1 L (10/08/2016 11:51:QS system process) Hematocrit: 27.9 L (10/09/2016 06:38:QS system process) Hematocrit: 32.7 L (10/08/2016 11:51:QS system process) MCV: 82 (10/09/2016 06:38:QS system process) MCV: 81 (10/08/2016 11:51:QS system process) Group Beta Strep: Unknown (10/08/2016 11:11:Madhavi Blackman RN) Gonorrhea: Positive (10/08/2016 11:11:Madhavi Blackman RN) Chlamydia: Negative (10/08/2016 11:11:Madhavi Blackman RN) HIV Results: NEGATIVE (10/08/2016 11:54:QS system process) Rubella: Immune (10/08/2016 11:51:Asad Godoy RN) Rubella Titer: 3.48 (10/08/2016 11:51:QS system process) OB/PREVIOUS HISTORY Current Procedures: Ultrasound (10/08/2016 11:11:Asad Godoy RN) History of Previous : No (10/08/2016 11:11:Asad Godoy RN) History of Gestational Diabetes: No (10/08/2016 11:11:Asad Godoy RN) History of PIH: No (10/08/2016 11:11:Asad Godoy RN) History of Incompetent Cervix: No (10/08/2016 11:11:Asad Godoy RN) History of Placenta Previa/Abrup: No (10/08/2016 11:11:Asad Godoy RN) History of Macrosomia: No (10/08/2016 11:11:Asad Godyo RN) History of IUGR: Yes (10/08/2016 11:11:Asad Godoy RN) History of Hemorrhage: No (10/08/2016 11:11:Asad Godoy RN) History of Loss/Stillborn: No (10/08/2016 11:11:Asad Godoy RN) History of : No (10/08/2016 11:11:Asad Godoy RN) History of D (Rh) Sensitization: No (10/08/2016 11:11:Asad Godoy RN) History Recurrent Loss/Stillborn: No (10/08/2016 11:11:Asad Godoy RN) History Depression/PP Depression: No (10/08/2016 11:11:Asad Godoy RN) History of Uterine Anomaly/JEAN-CLAUDE: No (10/08/2016 11:11:Asad Godoy RN) History of Infertility: No (10/08/2016 11:11:Asad Godoy RN) History of ART Treatment: No (10/08/2016 11:11:Asad Godoy RN) History of JEAN-CLAUDE: No (10/08/2016 11:11:Asad Godoy RN) Comments Obstetrical History: G1- Current, severe IUGR (10/08/2016 11:11:Asad Godoy RN) MEDICAL HISTORY Med Hx Diabetes: No (10/08/2016 11:11:Asad Godoy RN) Med Hx Hypertension: No (10/08/2016 11:11:Asad Godoy RN) Med Hx Heart Disease: No (10/08/2016 11:11:Asad Godoy RN) Med Hx Autoimmune Disorder: No (10/08/2016 11:11:Asad Godoy RN) Med Hx Kidney Disease/UTI: No (10/08/2016 11:11:Asad Godoy RN) Med Hx Neurologic/Epilepsy: No (10/08/2016 11:11:Asad Godoy RN) Med Hx Psychiatric Disorders: No (10/08/2016 11:11:Asad Godoy RN) Med Hx Hepatitis/Liver Disease: No (10/08/2016 11:11:Asad Godoy RN) Med Hx Varicosities/Phlebitis: No (10/08/2016 11:11:Asad Godoy RN) Med Hx Thyroid Dysfunction: No (10/08/2016 11:11:Asad Godoy RN) Med Hx Trauma/Violence: No (10/08/2016 11:11:Asad Godoy RN) Med Hx Blood Transfusion: No (10/08/2016 11:11:Asad Godoy RN) Med Hx Pulmonary (Asthma,TB): No (10/08/2016 11:11:Asad Godoy RN) Med Hx Breast: No (10/08/2016 11:11:Asad Godoy RN) Med Hx PIPING DESIGNER Surgery: No (10/08/2016 11:11:Asad Godoy RN) Med Hx Hospitalization/Surgery: No (10/08/2016 11:11:Asad Godoy RN) Med Hx Anesthetic Complications: No (10/08/2016 11:11:Asad Godoy RN) Med Hx Abnormal Pap Smear: No (10/08/2016 11:11:Asad Godoy RN) Other Medical Diseases: No (10/08/2016 11:11:Asad Godoy RN) Med Hx Significant Family Hx: No (10/08/2016 11:11:Asad Godoy RN) INFECTIOUS HISTORY Inf Hx Gonorrhea: Yes (10/08/2016 11:11:Asad Godoy RN) Inf Hx Chlamydia: No (10/08/2016 11:11:Asad Godoy RN) Inf Hx Syphilis: No (10/08/2016 11:11:Asad Godoy RN) Inf Hx HIV/AIDS: No (10/08/2016 11:11:Asad Godoy RN) Inf Hx Human Papilloma Virus: No (10/08/2016 11:11:Asad Godoy RN) Inf Hx Pt/Partner Genital Herpes: No (10/08/2016 11:11:Asad Godoy RN) Inf Hx Tuberculosis/Exposure: No (10/08/2016 11:11:Asad Godoy RN) Inf Hx Hepatitis B,C: No (10/08/2016 11:11:Asad Godoy RN) Inf Hx Rash or Viral Illness: No (10/08/2016 11:11:Asad Godoy RN) Details of Infectious Hx: Positive for gonorrhea with this , treated upon admission to hospital (10/08/2016 11:11:Asad Godoy RN) GENETIC HISTORY Gen Hx Age >=35 at [facility]: No (10/08/2016 11:11:Asad Godoy RN) Gen Hx Thalassemia: No (10/08/2016 11:11:Asad Godoy RN) Gen Hx Congenital Heart Defect: No (10/08/2016 11:11:Asad Godoy RN) Gen Hx Neural Tube Defect: No (10/08/2016 11:11:Asad Godoy RN) Gen Hx Down's Syndrome: No (10/08/2016 11:11:Asad Godoy RN) Gen Hx Sandoval-Sachs: No (10/08/2016 11:11:Asad Godoy RN) Gen Hx Chapin: No (10/08/2016 11:11:Asad Godoy RN) Gen Hx Familial Dysautonomia: No (10/08/2016 11:11:Asad Godoy RN) Gen Hx Sickle Cell Disease/Trait: No (10/08/2016 11:11:Asad Godoy RN) Gen Hx Hemophilia/Blood Disorder: No (10/08/2016 11:11:Asad Godoy RN) Gen Hx Muscular Dystrophy: No (10/08/2016 11:11:Asad Godoy RN) Gen Hx Cystic Fibrosis: No (10/08/2016 11:11:Asad Goody RN) Gen Hx Huntingtons Chorea: No (10/08/2016 11:11:Asad Godoy RN) Gen Hx Mental Retardation/Autism: No (10/08/2016 11:11:Asad Godoy RN) Gen Hx Tested for Fragile X: No (10/08/2016 11:11:Asad Godoy RN) Gen Hx Other Inher/Chromosomal: No (10/08/2016 11:11:Asad Godoy RN) Gen Hx Maternal Metabolic DO: No (10/08/2016 11:11:Asad Godoy RN) Gen Hx Pt Father or FOB Defect: No (10/08/2016 11:11:Asad Godoy RN) Gen Hx Other Genetic History: No (10/08/2016 11:11:Asad Godoy RN) Gen Hx Drugs/Meds since LMP: No (10/08/2016 11:11:Asad Godoy RN)
--- NOTE | 2016-10-09 16:46 | L&D Discharge Summary ---
OB Discharge Summary Datetime Report Generated by CPN: 10/09/2016 16:45 DISCHARGE DIAGNOSIS Gestation: 39.1 Number of Babies in Womb: 1 Parity: 0
--- NOTE | 2016-10-09 22:46 | L&D Discharge Summary ---
OB Discharge Summary Datetime Report Generated by CPN: 10/09/2016 22:45 DISCHARGE DIAGNOSIS Gestation: 39.1 Number of Babies in Womb: 1 Parity: 0
--- NOTE | 2016-10-09 22:46 | L&D General Admission ---
General Admit Datetime Report Generated by CPN: 10/09/2016 22:45 INFORMATION Patient Age: 31 (10/08/2016 10:53:QS system process) EDC: 10/14/2016 00:00 (10/08/2016 11:11:Madhavi Blackman RN) : 1 (10/08/2016 11:11:Madhavi Blackman RN) Para: 0 (10/08/2016 11:11:Madhavi Blackman RN) Term: 0 (10/08/2016 11:11:Madhavi Blackman RN) : 0 (10/08/2016 11:11:Madhavi Blackman RN) Spontaneous Abortions: 0 (10/08/2016 11:11:Madhavi Blackman RN) Induced Abortions: 0 (10/08/2016 11:11:Madhavi Blackman RN) Livin (10/08/2016 11:11:Madhavi Blackman RN) Cesareans: 0 (10/08/2016 11:11:Madhavi Blackman RN) VBACs: 0 (10/08/2016 11:11:Madhavi Blackman RN) Ectopic: 0 (10/08/2016 11:11:Madhavi Blackman RN) Multiple Births: 0 (10/08/2016 11:11:Madhavi Blackman RN) Baby, Number in Womb: 1 (10/08/2016 11:11:Leonor Richardson RN) CARE Primary Retail Sales Professional: Other-Annotate (10/08/2016 11:11:Madhavi Blackman RN) Retail Sales Professional Other: No care (10/08/2016 11:11:Madhavi Blackman RN) Adequate Care: No (10/08/2016 11:11:Madhavi Blackman RN) Height (in): 61 (10/09/2016 08:53:QS system process) Height (in): 61 (10/09/2016 08:50:QS system process) Height (in): 61 (10/08/2016 23:48:QS system process) Height (in): 61 (10/08/2016 15:55:QS system process) Height (in): 61 (10/08/2016 12:35:QS system process) Height (in): 61 (10/08/2016 11:24:QS system process) ALLERGIES Medication Allergy: No (10/08/2016 11:11:Madhavi BlackmanALEXANDRA) Medication Allergies: No Known Allergies (02/23/2011) (10/08/2016 10:53:QS system process) Latex Allergy: No Latex Allergies (10/08/2016 11:11:Madhavi Blackman RN) COMMUNICATION Primary Language: Kinyarwanda (10/08/2016 11:11:Madhavi Blackman RN) Medical Tx Preferred Language: Kinyarwanda (10/08/2016 11:11:Madhavi Blackman RN) DEMOGRAPHICS Address: [address] [place] [address] [place] [address] (10/08/2016 10:53:QS system process) Zipcode: [address] (10/08/2016 10:53:QS system process) Home (10/08/2016 10:53:QS system process) N: [phone] (10/08/2016 10:53:QS system process) Next of Kin Name: DECLINED PT (10/08/2016 10:53:QS system process) Next of Kin (10/08/2016 10:53:QS system process) Next of Kin Relationship: OR (10/08/2016 10:53:QS system process) Date of : 1985 (10/08/2016 10:53:QS system process) Marital Status: Single (10/08/2016 10:53:QS system process) Sex: Female (10/08/2016 10:53:QS system process) Occupation: None (10/08/2016 11:11:Asad Godoy RN) Race: (10/08/2016 10:53:QS system process) Ethnicity: Non- or (10/08/2016 10:53:QS system process) Amish: None (10/08/2016 10:53:QS system process) FOB Involved: No (10/08/2016 11:11:Asad Godoy RN) Father of Baby Name: unknown (10/08/2016 11:11:Asad Godoy RN) DRUG AND ALCOHOL USE Alcohol: Yes (10/08/2016 11:11:Madhavi Blakcman RN) Average Alcohol Consumption: <2 per day (10/08/2016 11:11:Madhavi Blackman RN) Advised to Stop Alcohol: Yes (10/08/2016 11:11:Madhavi Blackman RN) Alcohol Comments: Pt states she had a beer last night (10/08/2016 11:11:Madhavi Blackman RN) Cigarettes: Current Everyday Smoker. [id number] (10/08/2016 11:11:Madhavi Blackman RN) Average Cigarettes Smoked: > 10 per day (10/08/2016 11:11:Madhavi Blackman RN) Advised to Stop Smoking: Yes (10/08/2016 11:11:Madhavi Blackman RN) Marijuana: No (10/08/2016 11:11:Madhavi Blackman RN) Cocaine: No (10/08/2016 11:11:Madhavi Blackman RN) Other Illicit Drugs: No (10/08/2016 11:11:Madhavi Blackman RN) VACCINE HISTORY Influenza Vaccine: No (10/08/2016 11:11:Madhavi Blackman RN) Pneumococcal Vaccine: No (10/08/2016 11:11:Madhavi Blackman RN) Tetanus Vaccine: Yes (10/08/2016 11:11:Madhavi Blackman RN) Tdap Vaccine: No (10/08/2016 11:11:Madhavi Blackman RN) Hepatitis B Vaccine: Yes (10/08/2016 11:11:Madhavi Blackman RN) Utilization Review Coordinator: [facility] (10/08/2016 11:11:Asad Godoy RN) Feeding Preference: Formula (10/08/2016 11:11:Leonor Richardson RN) Circumcision: N/A (10/08/2016 11:11:Asad Godoy RN) Classes Attended: No (10/08/2016 11:11:Asad Godoy RN) Tubal Ligation: No (10/08/2016 11:11:Asad Godoy RN) Tubal Authorization Signed: N/A (10/08/2016 11:11:Asad Godoy RN) Consent: N/A (10/08/2016 11:11:Asad Godoy RN) Consent Signed: N/A (10/08/2016 11:11:Asad Godoy RN) Pain Management Plans: Epidural (10/08/2016 11:11:Madhavi Blackman RN) Plans for Labor and Delivery: None (10/08/2016 11:11:Madhavi Blackman RN) Other Labor and Delivery Plans: Plans to give baby up for adoption (10/08/2016 11:11:Asad Godoy RN) Support Person: none (10/08/2016 11:11:Asad Godoy RN) Other Relationship: none (10/08/2016 11:11:Asad Godoy RN) Cultural/Spritual Practice: No (10/08/2016 11:11:Asad Godoy RN) Spir/Cult Dietary Needs: No (10/08/2016 11:11:Asad Godoy RN) LIVING SITUATION/DISCHARGE PLAN Living Arrangements: Homeless (10/08/2016 11:11:Madhavi Blackman RN) WIC Program: Needs referral (10/08/2016 11:11:Madhavi Blackman RN) Currently Using Commun Resources: No (10/08/2016 11:11:Madhavi Blackman RN) Outside Agency/Salon Sales Consultant: No (10/08/2016 11:11:Madhavi Blackman RN) Car Seat for Discharge: N/A (10/08/2016 11:11:Madhavi Blackman RN) Adoption Requested: Yes (10/08/2016 11:11:Madhavi Blackman RN) Pt Contact w/ Post : No (10/08/2016 11:11:Madhavi Blackman RN) LABS Blood Type: O Positive (10/08/2016 11:11:Madhavi Blackman RN) Antibody Screen: Negative (10/08/2016 11:11:Madhavi Blackman RN) Hemoglobin: 9.4 L (10/09/2016 06:38:QS system process) Hemoglobin: 11.1 L (10/08/2016 11:51:QS system process) Hematocrit: 27.9 L (10/09/2016 06:38:QS system process) Hematocrit: 32.7 L (10/08/2016 11:51:QS system process) MCV: 82 (10/09/2016 06:38:QS system process) MCV: 81 (10/08/2016 11:51:QS system process) Group Beta Strep: Unknown (10/08/2016 11:11:Madhavi Blackman RN) Gonorrhea: Positive (10/08/2016 11:11:Madhavi Blackman RN) Chlamydia: Negative (10/08/2016 11:11:Madhavi Blackman RN) RPR/VDRL: Nonreactive (10/08/2016 11:11:Odessa Quezada RN) HIV Results: NEGATIVE (10/08/2016 11:54:QS system process) Hepatitis B: Negative (10/08/2016 11:11:Odessa Quezada RN) Rubella: Immune (10/08/2016 11:51:Asad Godoy RN) Rubella Titer: 3.48 (10/08/2016 11:51:QS system process) OB/PREVIOUS HISTORY Current Procedures: Ultrasound (10/08/2016 11:11:Asad Godoy RN) History of Previous : No (10/08/2016 11:11:Asad Godoy RN) History of Gestational Diabetes: No (10/08/2016 11:11:Asad Godoy RN) History of PIH: No (10/08/2016 11:11:Asad Godoy RN) History of Incompetent Cervix: No (10/08/2016 11:11:Asad Godoy RN) History of Placenta Previa/Abrup: No (10/08/2016 11:11:Asad Godoy RN) History of Macrosomia: No (10/08/2016 11:11:Asad Godoy RN) History of IUGR: Yes (10/08/2016 11:11:Asad Godoy RN) History of Hemorrhage: No (10/08/2016 11:11:Asad Godoy RN) History of Loss/Stillborn: No (10/08/2016 11:11:Asad Godoy RN) History of : No (10/08/2016 11:11:Asad Godoy RN) History of D (Rh) Sensitization: No (10/08/2016 11:11:Asad Godoy RN) History Recurrent Loss/Stillborn: No (10/08/2016 11:11:Asad Godoy RN) History Depression/PP Depression: No (10/08/2016 11:11:Asad Godoy RN) History of Uterine Anomaly/JEAN-CLAUDE: No (10/08/2016 11:11:Asad Godoy RN) History of Infertility: No (10/08/2016 11:11:Asad Godoy RN) History of ART Treatment: No (10/08/2016 11:11:Asad Godoy RN) History of JEAN-CLAUDE: No (10/08/2016 11:11:Asad Godoy RN) Comments Obstetrical History: G1- Current, severe IUGR (10/08/2016 11:11:Asad Godoy RN) MEDICAL HISTORY Med Hx Diabetes: No (10/08/2016 11:11:Asad Godoy RN) Med Hx Hypertension: No (10/08/2016 11:11:Asad Godoy RN) Med Hx Heart Disease: No (10/08/2016 11:11:Asad Godoy RN) Med Hx Autoimmune Disorder: No (10/08/2016 11:11:Asad Godoy RN) Med Hx Kidney Disease/UTI: No (10/08/2016 11:11:Asad Godoy RN) Med Hx Neurologic/Epilepsy: No (10/08/2016 11:11:Asad Godoy RN) Med Hx Psychiatric Disorders: No (10/08/2016 11:11:Asad Godoy RN) Med Hx Hepatitis/Liver Disease: No (10/08/2016 11:11:Asad Godoy RN) Med Hx Varicosities/Phlebitis: No (10/08/2016 11:11:Asad Godoy RN) Med Hx Thyroid Dysfunction: No (10/08/2016 11:11:Asad Godoy RN) Med Hx Trauma/Violence: No (10/08/2016 11:11:Asad Godoy RN) Med Hx Blood Transfusion: No (10/08/2016 11:11:Asad Godoy RN) Med Hx Pulmonary (Asthma,TB): No (10/08/2016 11:11:Asad Godoy RN) Med Hx Breast: No (10/08/2016 11:11:Asad Godoy RN) Med Hx AIRCRAFT STRUCTURAL DESIGN ENGINEER Surgery: No (10/08/2016 11:11:Asad Godoy RN) Med Hx Hospitalization/Surgery: No (10/08/2016 11:11:Asad Godoy RN) Med Hx Anesthetic Complications: No (10/08/2016 11:11:Asad Godoy RN) Med Hx Abnormal Pap Smear: No (10/08/2016 11:11:Asad Godoy RN) Other Medical Diseases: No (10/08/2016 11:11:Asad Godoy RN) Med Hx Significant Family Hx: No (10/08/2016 11:11:Asad Godoy RN) INFECTIOUS HISTORY Inf Hx Gonorrhea: Yes (10/08/2016 11:11:Asad Godoy RN) Inf Hx Chlamydia: No (10/08/2016 11:11:Asad Godoy RN) Inf Hx Syphilis: No (10/08/2016 11:11:Asad Godoy RN) Inf Hx HIV/AIDS: No (10/08/2016 11:11:Asad Godoy RN) Inf Hx Human Papilloma Virus: No (10/08/2016 11:11:Asad Godoy RN) Inf Hx Pt/Partner Genital Herpes: No (10/08/2016 11:11:Asad Godoy RN) Inf Hx Tuberculosis/Exposure: No (10/08/2016 11:11:Asad Godoy RN) Inf Hx Hepatitis B,C: No (10/08/2016 11:11:Asad Godoy RN) Inf Hx Rash or Viral Illness: No (10/08/2016 11:11:Asad Godoy RN) Details of Infectious Hx: Positive for gonorrhea with this , treated upon admission to hospital (10/08/2016 11:11:Asad Godoy RN) GENETIC HISTORY Gen Hx Age >=35 at JIA: No (10/08/2016 11:11:Asad Godoy RN) Gen Hx Thalassemia: No (10/08/2016 11:11:Asad Godoy RN) Gen Hx Congenital Heart Defect: No (10/08/2016 11:11:Asad Godoy RN) Gen Hx Neural Tube Defect: No (10/08/2016 11:11:Asad Godoy RN) Gen Hx Down's Syndrome: No (10/08/2016 11:11:Asad Godoy RN) Gen Hx Sandoval-Sachs: No (10/08/2016 11:11:Asad Godoy RN) Gen Hx Chapin: No (10/08/2016 11:11:Asad Godoy RN) Gen Hx Familial Dysautonomia: No (10/08/2016 11:11:Asad Godoy RN) Gen Hx Sickle Cell Disease/Trait: No (10/08/2016 11:11:Asad Godoy RN) Gen Hx Hemophilia/Blood Disorder: No (10/08/2016 11:11:Asad Godoy RN) Gen Hx Muscular Dystrophy: No (10/08/2016 11:11:Asad Godoy RN) Gen Hx Cystic Fibrosis: No (10/08/2016 11:11:Asad Godoy RN) Gen Hx [place] Chorea: No (10/08/2016 11:11:Asad oGdoy RN) Gen Hx Mental Retardation/Autism: No (10/08/2016 11:11:Asad Goody RN) Gen Hx Tested for Fragile X: No (10/08/2016 11:11:Asad Godoy RN) Gen Hx Other Inher/Chromosomal: No (10/08/2016 11:11:Asad Godoy RN) Gen Hx Maternal Metabolic DO: No (10/08/2016 11:11:Asad Godoy RN) Gen Hx Pt Father or FOB Defect: No (10/08/2016 11:11:Asad Godoy RN) Gen Hx Other Genetic History: No (10/08/2016 11:11:Asad Godoy RN) Gen Hx Drugs/Meds since LMP: No (10/08/2016 11:11:Asad Godoy RN)
--- NOTE | 2016-10-10 04:45 | L&D Admission Assessment ---
LD ADM ASMT Datetime Report Generated by N: 10/10/2016 04:45 Weight (lb): 143 (10/09/2016 08:53:QS system process) Weight (lb): 143 (10/09/2016 08:50:QS system process) Weight (kg): 65.0 (10/09/2016 08:53:QS system process) Weight (kg): 65.0 (10/09/2016 08:50:QS system process) BMI: 27.0 (10/09/2016 08:53:QS system process) BMI: 27.0 (10/09/2016 08:50:QS system process)
--- NOTE | 2016-10-10 04:45 | L&D General Admission ---
General Admit Datetime Report Generated by [facility]: 10/10/2016 04:45 Height (in): 61 (10/09/2016 08:53:QS system process) Height (in): 61 (10/09/2016 08:50:QS system process) Hemoglobin: 9.4 L (10/09/2016 06:38:QS system process) Hematocrit: 27.9 L (10/09/2016 06:38:QS system process) MCV: 82 (10/09/2016 06:38:QS system process)
--- NOTE | 2016-10-10 04:46 | L&D Discharge Summary ---
OB Discharge Summary Datetime Report Generated by CPN: 10/10/2016 04:45 DISCHARGE DIAGNOSIS Gestation: 39.1 Number of Babies in Womb: 1 Parity: 0
[2016-10-10] MEDS: IBUPROFEN 800 MG TABLET PO SCH (06:00)
[2016-10-10 07:38] LABS: HEPATITIS C VIRUS AB <0.1 s/co ratio (0.0-0.9)
--- NOTE | 2016-10-10 08:53 | PDOC DISCHARGE SUMMARY ---
Final Diagnosis Discharge Date: 10/10/16 - Final Diagnosis (1) Vaginal delivery Is this a current diagnosis for this admission?: Yes (2) with adoption planned, antepartum Is this a current diagnosis for this admission?: Yes (3) Acute blood loss anemia Is this a current diagnosis for this admission?: Yes (4) Substance abuse Is this a current diagnosis for this admission?: Yes Discharge Data - Discharge Medication Home Medications: Dextroamphetamine/Amphetamine [Adderall 15 mg Tablet] 15 mg PO DAILY 10/08/16 Docusate Sodium [Colace 100 mg Capsule] 100 mg PO BID #60 capsule 10/10/16 Ferrous Sulfate [Feosol 325 mg Tablet] 325 mg PO BID #60 tablet 10/10/16 Ibuprofen [Motrin 800 mg Tablet] 800 mg PO Q8 #90 tablet 10/10/16 Medroxyprogesterone Acet [Depo-Provera Inj 150 mg/1 ml Vial] 150 mg IM NOW #1 vial 10/10/16 Gestational Age: 39.1 Reason(s) for Admission: Induction of Labor, Status Admission Note: gbs unknown Procedures: NST Intrapartum Procedure(s): Spontaneous Vaginal Delivery - [place] Data Baby 1 Female at 1 minute: 8 at 5 minutes: 9 Weight: 2360 kg Home with Mother: No Complications: Yes - severe iugr, bufa, no care - Diagnosis Test Laboratory: Temp Pulse Resp BP Pulse Ox 98.2 F 68 16 137/98 H 98 10/10/16 04:54 10/10/16 04:54 10/10/16 04:54 10/10/16 04:54 10/10/16 04:54 10/08/16 10/08/16 10/09/16 11:01 11:51 06:38 RBC 4.04 3.42 L Hgb 11.1 L 9.4 L Hct 32.7 L 27.9 L Urine Opiates Screen NEGATIVE - Discharge information/Instructions Discharge Activity: Activity As Tolerated, Pelvic Rest, No tub bath Discharge Diet: Regular Disposition: HOME, SELF-CARE Follow up with: [facility] in: 4, Weeks
[2016-10-10] MEDS ORDERED: MEDROXYPROGESTERONE ACET INJ 150 MG/1 ML VIAL IM ONE (08:57)
[2016-10-10] MEDS: FERROUS SULFATE 325 MG TABLET PO SCH (09:09)
[2016-10-10] MEDS: SENNOSIDES/DOCUSATE 8.6-50 MG 1 EACH TABLET PO SCH (09:09)
[2016-10-10] MEDS: DOCUSATE SODIUM 100 MG CAPSULE PO SCH (09:09)
[2016-10-10] MEDS: PRENATAL VITAMIN W-O CA NO5/FE FUMARATE/FA CAPSULE PO SCH (09:10)
[2016-10-10 09:29] VITALS: BP 134/80
--- NOTE | 2016-10-10 10:46 | L&D Admission Assessment ---
LD ADM ASMT Datetime Report Generated by N: 10/10/2016 10:45 Weight (lb): 5192 (10/10/2016 08:53:QS system process) Weight (lb): 143 (10/10/2016 08:46:QS system process) Weight (kg): 2360.0 (10/10/2016 08:53:QS system process) Weight (kg): 65.0 (10/10/2016 08:46:QS system process) BMI: 980.9 (10/10/2016 08:53:QS system process) BMI: 27.0 (10/10/2016 08:46:QS system process)
--- NOTE | 2016-10-10 10:46 | L&D General Admission ---
General Admit Datetime Report Generated by N: 10/10/2016 10:45 Height (in): 61 (10/10/2016 08:53:QS system process) Height (in): 61 (10/10/2016 08:46:QS system process)
--- NOTE | 2016-10-10 10:46 | L&D Discharge Summary ---
OB Discharge Summary Datetime Report Generated by CPN: 10/10/2016 10:45 DISCHARGE DIAGNOSIS Gestation: 39.1 Number of Babies in Womb: 1 Parity: 0
== END 2016-10-10 13:40 | disposition home or self-care (01) | DRG 774 ==
LOC: LC 10:53 → LR 14:21 → 2S 23:20
PROVIDERS: ADMIT Obstetrics & Gynecology; ATTEND Obstetrics & Gynecology
PROC: 10E0XZZ Delivery of Products of Conception, External Approach (ICD-10-PCS; principal; 2016-10-08)
PROC: 4A1HXCZ Monitoring of Products of Conception, Cardiac Rate, External Approach (ICD-10-PCS; 2016-10-08)
PROC: 3E0234Z Introduction of Serum, Toxoid and Vaccine into Muscle, Percutaneous Approach (ICD-10-PCS; 2016-10-10)
DX: O99.314 Alcohol use complicating childbirth (principal); O98.22 Gonorrhea complicating childbirth; O99.324 Drug use complicating childbirth; D62 Acute posthemorrhagic anemia; Z37.0 Single live birth; O99.02 Anemia complicating childbirth; O36.5930 Maternal care for other known or suspected poor fetal growth, third trimester, not applicable or unspecified; F10.10 Alcohol abuse, uncomplicated; O76 Abnormality in fetal heart rate and rhythm complicating labor and delivery; Z3A.39 39 weeks gestation of pregnancy; Z59.0 Homelessness; Z23 Encounter for immunization
CPT/HCPCS: 36415; 76815; 80053; 80307; 81001; 84112; 85025; 85027; 86592; 86701; 86762; 86803; 86804; 86850; 86900; 86901; 87081; 87340; 87491; 87591; 88307; 90715; J0456; J0696; J1050; J2370; J2405; J2540; J2590; J3010; J3490

== ENCOUNTER 2016-12-30 12:25 | Emergency (ER) | payer SELFPAY ==
[2016-12-30] MEDS ORDERED: LIDOCAINE 1% INJ-PF (10 MG/ML) 30 ML SDV INJ ONE (13:24)
--- NOTE | 2016-12-30 13:29 | ER Document Report ---
ED Skin Rash/Insect Bite/Abscs - General Chief Complaint: Abscess Stated Complaint: ABSCESS Time Seen by Provider: 12/30/16 13:10 Mode of Arrival: Ambulatory Information source: Patient Notes: -year-old female presents to ED for abscess to the upper back for a couple of weeks. Denies any drainage from the site. States she has some mild discomfort. Has a history of anxiety PTSD and ADHD. TRAVEL OUTSIDE OF THE [place] IN LAST 30 DAYS: No - HPI Patient complains to provider of: Tender/swollen area Onset: Other - 2-3 weeks Onset/Duration: Gradual Quality of pain: Burning Severity: Moderate Pain Level: 3 Skin Character: Abscess Quality of rash: Painful Identify cause: No Exacerbated by: Denies Relieved by: Denies Similar symptoms previously: Yes Recently seen / treated by doctor: No - Related Data Allergies/Adverse Reactions: No Known Allergies Allergy (Verified 12/30/16 12:28) Past Medical History - General Information source: Patient - Social History Smoking Status: Current Every Day Smoker Cigarette use (# per day): Yes - Half a pack a day Chew tobacco use (# tins/day): No Smoking Education Provided: Yes - Less than 2 minutes Frequency of alcohol use: Heavy - 80 Drug Abuse: None Occupation: None Lives with: Friend Family History: Reviewed & Not Pertinent Patient has suicidal ideation: No Patient has homicidal ideation: No - Past Medical History Cardiac Medical History: Reports: None Pulmonary Medical History: Reports: None EENT Medical History: Reports: None Neurological Medical History: Reports: None Endocrine Medical History: Reports: None Renal/ Medical History: Reports: None Malignancy Medical History: Reports: None GI Medical History: Reports: None Musculoskeltal Medical History: Reports Hx Musculoskeletal Trauma Skin Medical History: Reports Hx Cellulitis Psychiatric Medical History: Reports: Hx Anxiety, Hx Attention Deficit Hyperactivity Disorder, Hx Post Traumatic Stress Disorder Traumatic Medical History: Reports: Hx Fractures - Arm Surgical Hx: Negative Review of Systems - Review of Systems Constitutional: No symptoms reported EENT: No symptoms reported Cardiovascular: No symptoms reported Respiratory: No symptoms reported Gastrointestinal: No symptoms reported Genitourinary: No symptoms reported Female Genitourinary: No symptoms reported Musculoskeletal: No symptoms reported Skin: Other - Upper mid back Hematologic/Lymphatic: No symptoms reported Neurological/Psychological: No symptoms reported -: Yes All other systems reviewed and negative Physical Exam - Vital signs Vitals: Temp Pulse Resp BP Pulse Ox 99.1 F 89 16 144/114 H 99 12/30/16 12:32 12/30/16 12:32 12/30/16 12:32 12/30/16 12:32 12/30/16 12:32 Interpretation: Normal - General General appearance: Appears well, Alert - HEENT Head: Normocephalic, Atraumatic Eyes: Normal Pupils: PERRL - Respiratory Respiratory status: No respiratory distress Chest status: Nontender Breath sounds: Normal Chest palpation: Normal - Cardiovascular Rhythm: Regular Heart sounds: Normal auscultation Murmur: No - Abdominal Inspection: Normal Distension: No distension Bowel sounds: Normal Tenderness: Nontender Organomegaly: No organomegaly - Back Back: Normal, Nontender - Extremities General upper extremity: Normal inspection, Nontender, Normal color, Normal ROM , Normal temperature General lower extremity: Normal inspection, Nontender, Normal color, Normal ROM , Normal temperature, Normal weight bearing. No: Angela's sign - Neurological Neuro grossly intact: Yes Cognition: Normal Orientation: AAOx4 [place] Coma Scale Eye Opening: Spontaneous [place] Coma Scale Verbal: Oriented [place] Coma Scale Motor: Obeys Commands [place] Coma Scale Total: 15 Speech: Normal Motor strength normal: LUE, RUE, LLE, RLE Sensory: Normal - Psychological Associated symptoms: Normal affect, Normal mood - Skin Skin Temperature: Warm Skin Moisture: Dry Skin Color: Normal Skin irregularity: Abscess Location of irregularity: Back - Upper center of the back Irregularity with: Swelling, Tenderness, Warmth Course - Re-evaluation Re-evalutation: 12/30/16 14:35 Dr. Stanton before opening the area. Open the area exactly where she pointed and no drainage noted with opening. Consulted Dr. Stanton after opening the area he came in and explore the area himself still no drainage. Will start the patient on Keflex and have follow-up with surgical clinic for reevaluation. - Vital Signs Vital signs: Temp Pulse Resp BP Pulse Ox 98.3 F 71 16 138/101 H 99 12/30/16 15:13 12/30/16 15:13 12/30/16 15:13 12/30/16 15:13 12/30/16 15:13 Procedures - Incision and Drainage Upper Back just below the neck Time completed: 14:35 Type: Simple Anesthetic type: 1% Lidocaine mL's of anesthetic: 5 Blade size: 11 I&D procedure: Sterile dressing applied, Other - Surgical scrub Incision Method: Incision made by scalpel Amount/type of drainage: No drainage noted Discharge - Discharge Clinical Impression: cellulitis upper back lower neck Condition: Stable Disposition: HOME, SELF-CARE Additional Instructions: CELLULITIS: You have an infection of your skin and underlying soft tissues called cellulitis. This is due to bacteria, which can enter through any break in the skin, or even through an irritated hair follicle. Untreated, cellulitis will usually worsen. Antibiotics are required. Usually, warm packs or warm soaks, and elevation of the infected area are recommended. You should start getting better within 24 to 36 hours. Most infections respond quickly to the right medication. Follow-up care is important, however, to check for abscess (boil) formation, unsuspected foreign body, or resistant infection. If you develop fever, chills, or if the area of infection is becoming rapidly more swollen or painful, call the doctor at once. POST INCISION AND DRAINAGE: You have had an incision made to allow drainage of an abscess. The incision must remain open so that pus and debris can drain from the wound. If the abscess cavity is large, packing is placed. This keeps the tissues from collapsing and trapping pus inside, while the body shrinks the cavity. The packing may need to be replaced every day or two. The physician will instruct you on the packing. Keep a bulky dressing over the area. Replace it if it becomes saturated with blood or pus. Do not disturb the packing (if present). You may shower and cleanse the area with gentle soap and warm water two or three times a day. Local warmth may be soothing, and may promote faster healing. Return if you develop high fever or chills, or if you note spreading redness, increasing swelling, or increasing tenderness. CEPHALEXIN: The antibiotic you've been prescribed is a member of the cephalosporin class. This type of antibiotic covers a wide variety of infections, including those of the skin, lungs, and urinary tract. It's useful for staph infections. This antibiotic is slightly similar to the penicillin family. In rare cases , a person who is allergic to penicillin will also be allergic to this medication. If you have had a severe allergic reaction to penicillin, and have not taken this antibiotic since that time, notify your doctor. Antibiotics which cover many germs ("broad spectrum" antibiotics) are more likely to cause diarrhea or "yeast" infections. Women prone to vaginal yeast problems may suffer an attack after taking this antibiotic. In infants, oral thrush (white spots "stuck" on the cheek) or yeast diaper rash may result. See your doctor if these problems occur. Call at once if you develop itching, hives , shortness of breath, or lightheadedness. And under a warm shower twice a day let water run on this area. Please take your Keflex until it is all gone. Please cover this area with address and after each shower. You will need to follow-up with surgery to have them further evaluate this area. FOLLOW-UP CARE: If you have been referred to a physician for follow-up care, call the physician s office for an appointment as you were instructed or within the next two days. If you experience worsening or a significant change in your symptoms, notify the physician immediately or return to the Emergency Department at any time for re-evaluation. On slow surgical tomorrow to schedule a follow-up appointment for evaluation. Prescriptions: Hydrocodone/Acetaminophen [[place] 5-325 mg Tablet] 1 tab PO Q6HP PRN #14 tablet PRN Reason: Cephalexin Monohydrate [Keflex 500 mg Capsule] 500 mg PO QID #28 capsule Forms: Elevated Blood Pressure, Smoking Cessation Education, Return to Work Referrals: [facility] [Provider Group] - Follow up tomorrow
[2016-12-30 15:47] VITALS: BP 138/101
== END 2016-12-30 15:15 | disposition home or self-care (01) ==
LOC: ER 12:25
PROC: 0H96XZZ Drainage of Back Skin, External Approach (ICD-10-PCS; principal; 2016-12-30)
DX: L02.212 Cutaneous abscess of back [any part, except buttock and flank] (principal); F41.9 Anxiety disorder, unspecified; F90.9 Attention-deficit hyperactivity disorder, unspecified type; F17.210 Nicotine dependence, cigarettes, uncomplicated
CPT/HCPCS: 99283; 10060; J3490

== ENCOUNTER 2017-07-02 19:31 | Emergency (ER) | payer SELFPAY ==
[2017-07-02 19:48] VITALS: BP 143/107
--- NOTE | 2017-07-02 20:33 | ER Document Report ---
ED Medical Screen (RME) - General Chief Complaint: Vaginal Pain Stated Complaint: GENITAL WARTS Time Seen by Provider: 07/02/17 20:29 Mode of Arrival: Ambulatory Information source: Patient TRAVEL OUTSIDE OF THE [place] IN LAST 30 DAYS: No - HPI Patient complains to provider of: genital warts Onset: Other - pt wants to be checked for genital warts - Related Data Allergies/Adverse Reactions: No Known Allergies Allergy (Verified 07/02/17 19:42) Home Medications: Current Home Medications No Home Medications 07/02/17 [History] Past Medical History - Social History Frequency of alcohol use: Occasional Drug Abuse: None Renal/ Medical History: Denies: Hx Peritoneal Dialysis Musculoskeltal Medical History: Reports Hx Musculoskeletal Trauma Skin Medical History: Reports Hx Cellulitis Psychiatric Medical History: Reports: Hx Anxiety, Hx Attention Deficit Hyperactivity Disorder, Hx Post Traumatic Stress Disorder Traumatic Medical History: Reports: Hx Fractures - Arm Physical Exam - Vital signs Vitals: Temp Pulse Resp BP Pulse Ox 97.5 F 100 16 143/107 H 96 07/02/17 19:36 07/02/17 19:36 07/02/17 19:36 07/02/17 19:36 07/02/17 19:36 Course - Vital Signs Vital signs: Temp Pulse Resp BP Pulse Ox 97.5 F 100 16 143/107 H 96 07/02/17 19:36 07/02/17 19:36 07/02/17 19:36 07/02/17 19:36 07/02/17 19:36
== END 2017-07-02 20:49 | disposition left against medical advice (07) ==
LOC: ER 19:31
DX: R10.2 Pelvic and perineal pain (principal); Z53.20 Procedure and treatment not carried out because of patient's decision for unspecified reasons
CPT/HCPCS: 99281

== ENCOUNTER 2017-07-04 09:01 | Emergency (ER) | payer MEDICAID ==
--- NOTE | 2017-07-04 10:06 | ER Document Report ---
HPI - HPI Patient complains to provider of: "I have HPV" Onset: Other - noticed yesterday Quality of pain: Burning Pain Level: 3 Context: 32 yo female states she thinks she has HPV, bumps and burning with urination. Pelvic pain with sex. No fever, v/d. Pt does not treat her high blood pressure. Denies . (gave up for adoption) Associated Symptoms: None Exacerbated by: Other - worse with sex, no condoms used Relieved by: Denies - ROS ROS below otherwise negative: Yes Systems Reviewed and Negative: Yes All other systems reviewed and negative - REPRODUCTIVE Reproductive: REPORTS: : Past Medical History - General Information source: Patient - Social History Smoking Status: Current Every Day Smoker Frequency of alcohol use: Occasional Drug Abuse: None - denies drugs, but urine drug screen possible amphetamines and because of facial lesions and extremity chronic scratching lesions suspect drug use. Family History: Reviewed & Not Pertinent Renal/ Medical History: Denies: Hx Peritoneal Dialysis Musculoskeltal Medical History: Reports Hx Musculoskeletal Trauma Skin Medical History: Reports Hx Cellulitis Psychiatric Medical History: Reports: Hx Anxiety, Hx Attention Deficit Hyperactivity Disorder, Hx Post Traumatic Stress Disorder Traumatic Medical History: Reports: Hx Fractures - Arm Surgical Hx: Negative Vertical Provider Document - CONSTITUTIONAL Agree With Documented VS: Yes Exam Limitations: No Limitations General Appearance: No Apparent Distress - INFECTION CONTROL TRAVEL OUTSIDE OF THE [place] IN LAST 30 DAYS: No - HEENT HEENT: Normocephalic Notes: nasal wound covered with bandaid (she won't let me look at it) - NECK Neck: Supple. negative: Lymphadenopathy-Left, Lymphadenopathy-Right - RESPIRATORY Respiratory: Breath Sounds Normal, No Respiratory Distress O2 Sat by Pulse Oximetry: 97 - CARDIOVASCULAR Cardiovascular: Regular Rate, Regular Rhythm - GI/ABDOMEN Gastrointestinal: Abdomen Soft, Abdomen Tender - suprpubic mild tender - REPRODUCTIVE Female Genitalia: CMT. negative: Adnexal Pain-Right, Adnexal Pain-Left Notes: yellow pus from os - MUSCULOSKELETAL/EXTREMETIES Musculoskeletal/Extremeties: BURAK ZARATE - NEURO Level of Consciousness: Awake, Alert - DERM Integumentary: Warm, Dry, Rash - chronic scratching lesions lower legs, and bilateral dorsal forearms Course - Re-evaluation Re-evalutation: 07/05/17 05:56 late entry pt positive for gonorrhea and chlamydia, was tx in ER for both. Pt did not call me back for the results as instructed. 07/05/17 07:16 test negative that I added on the urine this morning. Tried to call the pt about the std cx results and the phone number is no longer in service. 07/05/17 07:17 - Vital Signs Vital signs: Temp Pulse Resp BP Pulse Ox 98.4 F 100 14 151/114 H 97 07/04/17 09:10 07/04/17 09:10 07/04/17 09:10 07/04/17 09:10 07/04/17 09:10 Discharge - Discharge Clinical Impression: Pelvic inflammatory disease Urinary tract infection Qualifiers: Urinary tract infection type: site unspecified Hematuria presence: without hematuria Qualified Code(s): N39.0 - Urinary tract infection, site not specified Condition: Good Disposition: HOME, SELF-CARE Instructions: Doxycycline ([facility]), Metronidazole ([facility]), Pelvic Inflammatory Disease ([facility]), Pelvic Pain ([facility]), Rocephin ([facility]), Urinary Tract Infection ([facility]) Additional Instructions: call me in 3 hours for the gonorrhea and chlamydia std result [phone] to er if pain worsens, fever, vomiting, can't keep your mediation down drink plenty of water NO ALCOHOL WHEN YOU TAKE THE METRONIDAZOLE see OBGYN if symptoms persist Prescriptions: Doxycycline Hyclate 100 mg PO BID #20 tablet Metronidazole 500 mg PO BID #20 tablet Referrals: TALITA EAST MD [ACTIVE STAFF] - Follow up as needed
[2017-07-04 11:00] LABS: APPEARANCE,URINE TURBID; BILIRUBIN,URINE NEGATIVE (NEGATIVE); GLUCOSE, URINE NEGATIVE (NEGATIVE); KETONES,URINE NEGATIVE (NEGATIVE); LEUKOCYTE ESTERASE,URINE NEGATIVE (NEGATIVE); NITRITE,URINE POSITIVE (NEGATIVE); PROTEIN,URINE 100 mg/dL (NEGATIVE); URINE SPECIFIC GRAVITY 1.015
[2017-07-04 11:02] LABS: COLOR,URINE ORANGE
[2017-07-04 11:05] LABS: URINE BARBITURATES SCREEN NEGATIVE; URINE BENZODIAZEPINES SCREEN NEGATIVE; URINE COCAINE SCREEN NEGATIVE; URINE MARIJUANA (THC) SCREEN NEGATIVE; URINE METHADONE SCREEN NEGATIVE; URINE PHENCYCLIDINE SCREEN NEGATIVE
[2017-07-04] MEDS ORDERED: ONDANSETRON 4 MG TAB.RAPDIS PO ONE (11:09)
[2017-07-04] MEDS ORDERED: DOXYCYCLINE HYCLATE 100 MG TABLET PO ONE (11:09)
[2017-07-04] MEDS ORDERED: LIDOCAINE 1% INJ-PF (10 MG/ML) 30 ML SDV INFIL ONE (11:09)
[2017-07-04] MEDS ORDERED: CEFTRIAXONE INJ 250 MG VIAL IM ONE (11:09)
[2017-07-04] MEDS ORDERED: CEFTRIAXONE INJ 1000 MG VIAL IM ONE (11:14)
[2017-07-04 11:17] LABS: BACTERIA (WET MOUNT) 4+ BACTERIA SEEN; EPITHELIALS (WET MOUNT) 3+ EPITHELIALS SEEN; RBCS (WET MOUNT) RARE RBCS SEEN; T.VAGINALIS (WET MOUNT) NO TRICHOMONAS SEEN; WBCS (WET MOUNT) 4+ WBCS SEEN; YEAST (WET MOUNT) NO YEAST SEEN
[2017-07-04] MEDS ORDERED: METRONIDAZOLE 500 MG TABLET PO ONE (11:42)
[2017-07-04] MEDS ORDERED: CEFTRIAXONE INJ 1000 MG VIAL ONE (11:50)
[2017-07-04] MEDS ORDERED: LIDOCAINE 1% INJ-PF (10 MG/ML) 30 ML SDV ONE (11:50)
[2017-07-04 11:53] VITALS: BP 154/115
[2017-07-04 13:34] LABS: CHLAM PCR DETECTED (NOT DETECT)
[2017-07-04 13:35] LABS: GON PCR DETECTED (NOT DETECT)
== END 2017-07-04 12:02 | disposition home or self-care (01) ==
LOC: ER 09:01
DX: A54.24 Gonococcal female pelvic inflammatory disease (principal); A56.11 Chlamydial female pelvic inflammatory disease; N39.0 Urinary tract infection, site not specified; I10 Essential (primary) hypertension; F17.200 Nicotine dependence, unspecified, uncomplicated; L98.9 Disorder of the skin and subcutaneous tissue, unspecified
CPT/HCPCS: 99284; 87086; 87210; 81025; 87088; 81001; 87186; 80307; 87491; 87591; J3490 ×3; S0119; J0696

== ENCOUNTER 2018-01-03 05:06 | Emergency (ER) | payer SELFPAY ==
[2018-01-03 05:26] VITALS: BP 150/118
--- NOTE | 2018-01-03 07:18 | ER Document Report ---
ED General - General Chief Complaint: Abscess Stated Complaint: POSSIBLE ABSCESS Time Seen by Provider: 01/03/18 07:17 TRAVEL OUTSIDE OF THE [place] IN LAST 30 DAYS: No - Related Data Allergies/Adverse Reactions: No Known Allergies Allergy (Verified 07/02/17 19:42) Past Medical History - Social History Smoking Status: Unknown if Ever Smoked Family History: Reviewed & Not Pertinent Patient has suicidal ideation: No Patient has homicidal ideation: No Renal/ Medical History: Denies: Hx Peritoneal Dialysis Musculoskeletal Medical History: Reports Hx Musculoskeletal Trauma Skin Medical History: Reports Hx Cellulitis Psychiatric Medical History: Reports: Hx Anxiety, Hx Attention Deficit Hyperactivity Disorder, Hx Post Traumatic Stress Disorder Traumatic Medical History: Reports: Hx Fractures - Arm Physical Exam - Vital signs Vitals: Temp Pulse Resp BP Pulse Ox 98.7 F 110 H 16 150/118 H 98 01/03/18 05:25 01/03/18 05:25 01/03/18 05:25 01/03/18 05:25 01/03/18 05:25 Course - Vital Signs Vital signs: Temp Pulse Resp BP Pulse Ox 98.7 F 110 H 16 150/118 H 98 01/03/18 05:25 01/03/18 05:25 01/03/18 05:25 01/03/18 05:25 01/03/18 05:25
== END 2018-01-03 07:36 | disposition left against medical advice (07) ==
LOC: ER 05:06
DX: Z53.21 Procedure and treatment not carried out due to patient leaving prior to being seen by health care provider (principal)
CPT/HCPCS: 87070; 87075; 87077; 87186; 87205; A6266

== ENCOUNTER 2018-01-11 02:39 | Emergency (ER) | payer SELFPAY ==
[2018-01-11] MEDS ORDERED: SULFAMETHOXAZOLE/TRIMETHOPRIM 800-160 MG TABLET PO ONE (05:05)
--- NOTE | 2018-01-11 05:14 | ER Document Report ---
ED General - General Chief Complaint: Abscess Stated Complaint: ABCESS Time Seen by Provider: 01/11/18 04:04 Mode of Arrival: Ambulatory Information source: Patient Notes: Patient with bilateral axilla abscess x2 weeks. Reports some drainage from right axilla. Denies fevers or history of MRSA. Reports that she has severe anxiety. TRAVEL OUTSIDE OF THE [place] IN LAST 30 DAYS: No - Related Data Allergies/Adverse Reactions: No Known Allergies Allergy (Verified 07/02/17 19:42) Past Medical History - General Information source: Patient - Social History Smoking Status: Current Every Day Smoker Frequency of alcohol use: Occasional Drug Abuse: None Family History: Reviewed & Not Pertinent Patient has suicidal ideation: No Patient has homicidal ideation: No Renal/ Medical History: Denies: Hx Peritoneal Dialysis Musculoskeletal Medical History: Reports Hx Musculoskeletal Trauma Skin Medical History: Reports Hx Cellulitis Psychiatric Medical History: Reports: Hx Anxiety, Hx Attention Deficit Hyperactivity Disorder, Hx Post Traumatic Stress Disorder Traumatic Medical History: Reports: Hx Fractures - Arm Surgical Hx: Negative - Immunizations Immunizations up to date: Yes Review of Systems - Review of Systems Constitutional: No symptoms reported EENT: No symptoms reported Cardiovascular: No symptoms reported Respiratory: No symptoms reported Gastrointestinal: No symptoms reported Genitourinary: No symptoms reported Female Genitourinary: No symptoms reported Musculoskeletal: No symptoms reported Skin: See HPI Hematologic/Lymphatic: No symptoms reported Neurological/Psychological: No symptoms reported Physical Exam - Vital signs Vitals: Temp Pulse Resp BP Pulse Ox 97.9 F 126 H 20 153/117 H 99 01/11/18 02:45 01/11/18 02:45 01/11/18 02:45 01/11/18 02:45 01/11/18 02:45 - Notes Notes: PHYSICAL EXAMINATION: GENERAL: Well-appearing, well-nourished and in no acute distress. HEAD: Atraumatic, normocephalic. EYES: Pupils equal round and reactive to light, extraocular movements intact, sclera anicteric, conjunctiva are normal. ENT: nares patent, oropharynx clear without exudates. Moist mucous membranes. NECK: Normal range of motion, supple without lymphadenopathy LUNGS: Breath sounds clear to auscultation bilaterally and equal. No wheezes rales or rhonchi. HEART: Regular rate and rhythm without murmurs ABDOMEN: Soft, nontender, normoactive bowel sounds. No guarding, no rebound. No masses appreciated. EXTREMITIES: Normal range of motion, no pitting or edema. No cyanosis. NEUROLOGICAL: No focal neurological deficits. Moves all extremities spontaneously and on command. PSYCH: Normal mood, normal affect. SKIN: Warm, Dry, normal turgor, no rashes or lesions noted. Multiple abscess to right axilla with fluctuance, one abscess to left axilla without fluctuance. Course - Re-evaluation Re-evalutation: Right axilla abscess incised and drained. See procedure notes. - Vital Signs Vital signs: Temp Pulse Resp BP Pulse Ox 97.9 F 94 20 162/98 H 100 01/11/18 02:45 01/11/18 05:25 01/11/18 02:45 01/11/18 05:25 01/11/18 05:25 Procedures - Incision and Drainage right axilla Type: Simple Anesthetic type: 1% Lidocaine Blade size: 11 I&D procedure: Betadine prep applied, Shurclens applied, Other Incision Method: Incision made with needle Discharge - Discharge Clinical Impression: Abscess, Encounter for incision and drainage procedure Condition: Stable Disposition: HOME, SELF-CARE Additional Instructions: Abscess You have an abscess (boil). This a pus-forming infection, usually due to staph. Some boils may be left to drain on their own, but most require lancing. From the time the tender lump first appears, it may be three or four days before the abscess is ready to sakshi. Local heat and rest help at this stage of treatment. An antibiotic may prevent spread of the infection. Once the abscess is opened, packing may be placed into it. This is done so pus is not sealed inside by premature closure of the cavity. The packing will be removed at your follow-up visit or you may be advised to remove it yourself at home. Sometimes this packing must be replaced a few times during healing. The wound will heal with surprisingly little scar. Depending on the size and location of an abscess, healing can take one to four weeks. You may shower and wash the area around the incision site two or three times a day. Antibiotics may be prescribed, but are usually not necessary after an abscess has been drained. If you develop fever, chilling, worsening pain, or increasing swelling in the area, call the doctor or return immediately. Please use Epsom salt soaks to the area 4 times daily. This will help to continue the drainage. Cover with gauze as needed. Take the antibiotics as prescribed, finish all of them even if you are feeling better. May take Tylenol or Motrin as needed for the pain. Return to the emergency department if you develop worsening symptoms such as fever or worsening pain. Prescriptions: Sulfamethoxazole/Trimethoprim [Septra-Ds 800-160 mg Tablet] 1 tab PO BID #20 tablet Referrals: CALEBNO [Primary Care Provider] - Follow up as needed
[2018-01-11 05:28] VITALS: BP 162/98
== END 2018-01-11 05:28 | disposition home or self-care (01) ==
LOC: ER 02:39
DX: L02.411 Cutaneous abscess of right axilla (principal); L02.412 Cutaneous abscess of left axilla; F17.200 Nicotine dependence, unspecified, uncomplicated
CPT/HCPCS: 99283

== ENCOUNTER 2018-08-14 17:21 | Emergency (ER) | payer SELFPAY ==
[2018-08-14] MEDS ORDERED: PROMETHAZINE HCL 25 MG TABLET PO ONE (20:39)
[2018-08-14] MEDS ORDERED: NORMAL SALINE 1000 ML 1,000 ML IV ONE ×2 (20:39→23:54)
--- NOTE | 2018-08-14 20:41 | ER Document Report ---
ED Medical Screen (RME) - General Chief Complaint: Nausea/Vomiting Stated Complaint: NAUSEA,VOMITING Time Seen by Provider: 08/14/18 20:34 Notes: 33-year-old female with chief complaint of vomiting for the past 3 days. Comes by EMS, given Dishafran, states she at first felt better but she had just vomited prior to being seen by me. Occasional loose stools, denies fever. Denies any particular location of abdominal pain. Denies any daily medications. Denies recreational drugs except for taking her friend's Adderall at times, she does smoke and drink alcohol. TRAVEL OUTSIDE OF THE [place] IN LAST 30 DAYS: No - Related Data Allergies/Adverse Reactions: No Known Allergies Allergy (Verified 04/19/18 12:36) Past Medical History Renal/ Medical History: Denies: Hx Peritoneal Dialysis Musculoskeltal Medical History: Reports Hx Musculoskeletal Trauma Skin Medical History: Reports Hx Cellulitis Psychiatric Medical History: Reports: Hx Anxiety, Hx Attention Deficit Hyperactivity Disorder, Hx Post Traumatic Stress Disorder Traumatic Medical History: Reports: Hx Fractures - Arm - Immunizations Immunizations up to date: Yes Physical Exam - Vital signs Vitals: Temp Pulse Resp BP Pulse Ox 98.6 F 101 H 16 162/131 H 100 08/14/18 17:25 08/14/18 17:25 08/14/18 17:25 08/14/18 17:25 08/14/18 17:25 - General General appearance: Other - Somewhat disheveled in appearance, slightly dilated pupils, somewhat fidgety. - Abdominal Tenderness: Tender - Minimal generalized abdominal tenderness, nonspecific, no guarding, exam limited by sitting position Course - Re-evaluation Re-evalutation: I have greeted and performed a rapid initial assessment of this patient. A comprehensive ED assessment and evaluation of the patient, analysis of test results and completion of the medical decision making process will be conducted by additional ED providers. - Vital Signs Vital signs: Temp Pulse Resp BP Pulse Ox 98.6 F 101 H 16 162/131 H 100 08/14/18 17:25 08/14/18 17:25 08/14/18 17:25 08/14/18 17:25 08/14/18 17:25
[2018-08-14 21:52] LABS: ABSOLUTE EOSINOPHILS # (AUTO) 0.1 10^3/uL (0.0-0.6); ABSOLUTE LYMPHOCYTES (AUTO) 1.8 10^3/uL (0.5-4.7); ABSOLUTE MONOCYTES (AUTO) 0.7 10^3/uL (0.1-1.4); ABSOLUTE NEUT (AUTO) 6.2 10^3/uL (1.7-8.2); BASOPHILS % (AUTO) 0.5 % (0-2); EOSINOPHILS % (AUTO) 0.7 % (0-6); HEMOGLOBIN 16.6 g/dL (12.0-15.5); LYMPHOCYTES % (AUTO) 20.6 % (13-45); MEAN CORPUSCULAR HGB CONC 34.7 g/dL (32.0-36.0); MEAN CORPUSCULAR VOLUME 92 fl (80-97); MONOCYTES % (AUTO) 7.8 % (3-13); PLATELET COUNT 453 10^3/uL (150-450); RED BLOOD COUNT 5.19 10^6/uL (3.72-5.28); RED CELL DISTRIBUTION WIDTH 14.4 % (11.5-14.0); SEGMENTED NEUTROPHILS % (AUTO) 70.4 % (42-78); TOTAL CELLS COUNTED % (AUTO) 100 %; WHITE BLOOD COUNT 8.8 10^3/uL (4.0-10.5)
[2018-08-14 22:05] LABS: ALANINE AMINOTRANSFERASE 42 U/L (9-52); ALKALINE PHOSPHATASE 161 U/L (38-126); ANION GAP 13 (5-19); ASPARTATE AMINO TRANSFERASE 55 U/L (14-36); BILIRUBIN,DIRECT 0.3 mg/dL (0.0-0.4); BLOOD UREA NITROGEN 14 mg/dL (7-20); CALCIUM 9.6 mg/dL (8.4-10.2); CARBON DIOXIDE 28 mmol/L (22-30); CHLORIDE 98 mmol/L (98-107); GLUCOSE 119 mg/dL (75-110); LIPASE 98.5 U/L (23-300); POTASSIUM 3.6 mmol/L (3.6-5.0); SODIUM 139.1 mmol/L (137-145); TOTAL PROTEIN 9.3 g/dL (6.3-8.2)
[2018-08-14] MEDS ORDERED: ONDANSETRON HCL INJ/PF 4 MG/2 ML SDV IV ONE (22:29)
--- NOTE | 2018-08-14 22:57 | ER Document Report ---
ED GI/ - General Chief Complaint: Nausea/Vomiting Stated Complaint: NAUSEA,VOMITING Time Seen by Provider: 08/14/18 22:57 Mode of Arrival: Ambulatory Information source: Patient Notes: HISTORY OF PRESENT ILLNESS: Patient is a 33-year-old female with a past medical history of chronic depress ion/anxiety as well as chronic alcohol abuse who presents with nausea vomiting that began 1 day ago. Location: Upper abdomen Onset: Gradual Provocation: None Quality: Aching, burning Radiation: "All around the abdomen" Severity: Mild to moderate Timing: Intermittent but persistent LMP: "A month ago but I am not sure" Associated symptoms: Denies fevers or chills, no diarrhea or constipation, no va ginal bleeding or discharge REVIEW OF SYSTEMS: CONSTITUTIONAL : Denies fever or chills, no sweats. Denies recent illness. EENT: Denies eye, ear, throat, or mouth pain or symptoms. Denies nasal or sinus congestion. CARDIOVASCULAR: Denies chest pain. RESPIRATORY: Denies cough, cold, or chest congestion. Denies shortness of breath, difficulty breathing, or wheezing. GASTROINTESTINAL: Positive for abdominal pain. Positive for nausea and nonbloody/nonbilious vomiting. Denies constipation. GENITOURINARY: Denies difficulty urinating, painful urination, burning, frequency, or blood in urine. Denies vaginal bleeding, abnormal or irregular periods. MUSCULOSKELETAL: Denies neck or back pain or joint pain or swelling. SKIN: Denies rash or skin lesions. HEMATOLOGIC : Denies easy bruising or bleeding. LYMPHATIC: Denies swollen, enlarged glands. NEUROLOGICAL: Denies altered mental status or loss of consciousness. Denies headache. Denies weakness or paralysis or loss of use of either side. Denies problems with gait or speech. Denies sensory or motor loss. PSYCHIATRIC: Denies anxiety or stress or depression. All other systems reviewed and negative. PHYSICAL EXAMINATION: GENERAL: Well-appearing, well-nourished and in no acute distress. HEAD: Atraumatic, normocephalic. No scalp deformity, depression, or crepitance. EYES: Pupils are 3 mm and equal/round/reactive to light, extraocular movements intact, sclera anicteric, conjunctiva are normal. ENT: Nares patent bilaterally, oropharynx clear without exudates or palatal petechia. Moist mucous membranes. No tonsil hypertrophy. NECK: Normal range of motion, supple without lymphadenopathy. LUNGS: Breath sounds present, equal, and clear to auscultation bilaterally. No wheezes, rales, or rhonchi. HEART: Regular rate and rhythm without murmurs, rubs, or gallops. 2+ peripheral pulses. Normal capillary refill. ABDOMEN: Soft and nondistended, mild epigastric tenderness without peritoneal signs. Normoactive bowel sounds. No guarding, no rebound. No masses appreciated. BACK: Normal contour, no midline tenderness. Rectal exam deferred. PELVC: Deferred. EXTREMITIES: Normal range of motion, no pitting or edema. No cyanosis. NEUROLOGICAL: No focal neurological deficits. Moves all extremities spontaneously and on command. PSYCH: Normal mood, normal affect. No suicidal thoughts/ideations. No homocidal thoughts/ideations. No hallucinations. SKIN: Warm, dry, normal turgor, no rashes or lesions noted. ASSESSMENT AND PLAN: This patient is a 33-year-old female who presents with nausea and vomiting likely secondary to gastritis. 1. Will obtain labs, urine, and reassess. 2. Will give ibuprofen for pain control as well as Zofran. TRAVEL OUTSIDE OF THE [place] IN LAST 30 DAYS: No - Related Data Allergies/Adverse Reactions: No Known Allergies Allergy (Verified 04/19/18 12:36) Past Medical History - General Information source: Patient - Social History Smoking Status: Current Every Day Smoker Chew tobacco use (# tins/day): No Frequency of alcohol use: Heavy Drug Abuse: None Lives with: Family Family History: Reviewed & Not Pertinent Patient has suicidal ideation: No Patient has homicidal ideation: No - Past Medical History Cardiac Medical History: Reports: None Pulmonary Medical History: Reports: None EENT Medical History: Reports: None Neurological Medical History: Reports: None Endocrine Medical History: Reports: None Renal/ Medical History: Reports: None. Denies: Hx Peritoneal Dialysis Malignancy Medical History: Reports: None GI Medical History: Reports: None Musculoskeletal Medical History: Reports Hx Musculoskeletal Trauma Skin Medical History: Reports Hx Cellulitis Psychiatric Medical History: Reports: Hx Anxiety, Hx Attention Deficit Hyper activity Disorder, Hx Post Traumatic Stress Disorder Traumatic Medical History: Reports: Hx Fractures - Arm Infectious Medical History: Reports: None Surgical Hx: Negative Past Surgical History: Reports: None - Immunizations Immunizations up to date: Yes Physical Exam - Vital signs Vitals: Temp Pulse Resp BP Pulse Ox 98.6 F 101 H 16 162/131 H 100 08/14/18 17:25 08/14/18 17:25 08/14/18 17:25 08/14/18 17:25 08/14/18 17:25 Course - Re-evaluation Re-evalutation: 08/15/18 02:07 Labs and urine are normal. Patient was given oral Motrin with hydrochlorothiazide, her pain is improved and her blood pressure is down to normal. She will be discharged home with return precautions and follow-up as needed. Patient voices both understanding and agreeing with the plan. - Vital Signs Vital signs: Temp Pulse Resp BP Pulse Ox 98.6 F 101 H 15 118/87 H 97 08/14/18 17:25 08/14/18 17:25 08/15/18 02:01 08/15/18 02:01 08/15/18 02:01 - Laboratory Result Diagrams: 08/14/18 21:20 08/14/18 21:20 Laboratory results interpreted by me: 08/14/18 08/14/18 08/15/18 21:20 21:20 00:14 Hgb 16.6 H Hct 48.0 H RDW 14.4 H Plt Count 453 H Glucose 119 H AST 55 H Alkaline Phosphatase 161 H Total Protein 9.3 H Urine Ketones TRACE H Ur Leukocyte Esterase LARGE H - Diagnostic Test Radiology reviewed: Image reviewed, Reports reviewed Discharge - Discharge Clinical Impression: Uncontrolled hypertension Nausea and vomiting Qualifiers: Vomiting type: unspecified Vomiting Intractability: non-intractable Qualified Code(s): R11.2 - Nausea with vomiting, unspecified Condition: Good Disposition: HOME, SELF-CARE Instructions: High Blood Pressure ([facility]), Vomiting ([facility]) Additional Instructions: You have been evaluated in the Emergency Department for vomiting and having an elevated blood pressure. While here, you had normal blood work and urine studies and it is now safe to be discharged home. Please follow-up with your primary physician as instructed in 1 week to be rechecked. Return to the Emergency Department if you experience high fevers, chest pain, shortness of breath, or any other concerning symptoms. Prescriptions: Hydrochlorothiazide [Hydrodiuril 25 mg Tablet] 25 mg PO QAM #30 tablet Print Language: Mauritian
[2018-08-15] MEDS ORDERED: KETOROLAC TROMETHAMINE INJ/PF 30 MG/1 ML SDV IV ONE (00:10)
[2018-08-15] MEDS ORDERED: HYDROCHLOROTHIAZIDE 25 MG TABLET PO ONE (00:51)
[2018-08-15 01:10] LABS: APPEARANCE,URINE CLOUDY; BILIRUBIN,URINE NEGATIVE (NEGATIVE); COLOR,URINE YELLOW; GLUCOSE, URINE NEGATIVE (NEGATIVE); KETONES,URINE TRACE mg/dL (NEGATIVE); LEUKOCYTE ESTERASE,URINE LARGE (NEGATIVE); NITRITE,URINE NEGATIVE (NEGATIVE); PROTEIN,URINE NEGATIVE (NEGATIVE); UROBILINOGEN,URINE NEGATIVE mg/dL (<2.0)
[2018-08-15 01:44] LABS: URINE AMPHETAMINES SCREEN NEGATIVE; URINE BARBITURATES SCREEN NEGATIVE; URINE BENZODIAZEPINES SCREEN NEGATIVE; URINE COCAINE SCREEN NEGATIVE; URINE MARIJUANA (THC) SCREEN NEGATIVE; URINE METHADONE SCREEN NEGATIVE; URINE PHENCYCLIDINE SCREEN NEGATIVE
[2018-08-15 02:05] VITALS: BP 118/87
== END 2018-08-15 02:48 | disposition home or self-care (01) ==
LOC: ER 17:21
DX: I10 Essential (primary) hypertension (principal); R11.2 Nausea with vomiting, unspecified; F32.9 Major depressive disorder, single episode, unspecified; F41.9 Anxiety disorder, unspecified; F10.10 Alcohol abuse, uncomplicated; F17.200 Nicotine dependence, unspecified, uncomplicated
CPT/HCPCS: 99283; 96361; 96374; 96375; 36415; 83690; 84703; 85025; 80053; 81001; 80307; J1885; J2405; J7030 ×2

== ENCOUNTER 2020-03-07 05:40 | Emergency (ER) | payer SELFPAY ==
[2020-03-07 09:23] LABS: ABSOLUTE EOSINOPHILS # (AUTO) 0.1 10^3/uL (0.0-0.6); ABSOLUTE LYMPHOCYTES (AUTO) 1.7 10^3/uL (0.5-4.7); ABSOLUTE MONOCYTES (AUTO) 0.9 10^3/uL (0.1-1.4); ABSOLUTE NEUT (AUTO) 6.3 10^3/uL (1.7-8.2); BASOPHILS % (AUTO) 0.5 % (0-2); EOSINOPHILS % (AUTO) 0.7 % (0-6); HEMATOCRIT 44.9 % (36.0-47.0); HEMOGLOBIN 15.4 g/dL (12.0-15.5); MEAN CORPUSCULAR HEMOGLOBIN 32.2 pg (27.0-33.4); MEAN CORPUSCULAR HGB CONC 34.3 g/dL (32.0-36.0); MEAN CORPUSCULAR VOLUME 94 fl (80-97); MONOCYTES % (AUTO) 9.9 % (3-13); PLATELET COUNT 311 10^3/uL (150-450); RED BLOOD COUNT 4.79 10^6/uL (3.72-5.28); RED CELL DISTRIBUTION WIDTH 15.1 % (11.5-14.0); SEGMENTED NEUTROPHILS % (AUTO) 69.9 % (42-78); TOTAL CELLS COUNTED % (AUTO) 100 %; WHITE BLOOD COUNT 8.9 10^3/uL (4.0-10.5)
[2020-03-07 09:42] LABS: ALKALINE PHOSPHATASE 114 U/L (38-126); ANION GAP 10 (5-19); ASPARTATE AMINO TRANSFERASE 62 U/L (14-36); BILIRUBIN,DIRECT 0.4 mg/dL (0.0-0.4); BILIRUBIN,TOTAL 1.3 mg/dL (0.2-1.3); BLOOD UREA NITROGEN 7 mg/dL (7-20); CALCIUM 9.3 mg/dL (8.4-10.2); CARBON DIOXIDE 28 mmol/L (22-30); CHLORIDE 99 mmol/L (98-107); CREATINE KINASE 44 U/L (30-135); GLUCOSE 100 mg/dL (75-110); POTASSIUM 3.5 mmol/L (3.6-5.0); TOTAL PROTEIN 7.2 g/dL (6.3-8.2)
[2020-03-07 09:56] LABS: CREATINE KINASE MB < 0.22 ng/mL (<4.55); TROPONIN I < 0.012 ng/mL
--- NOTE | 2020-03-07 10:14 | RADIOLOGY REPORT (SQ) ---
EXAM DESCRIPTION: CHEST SINGLE VIEW IMAGES COMPLETED DATE/TIME: 03/07/2020 9:45 am REASON FOR STUDY: elevated blood pressure COMPARISON: None. EXAM PARAMETERS: NUMBER OF VIEWS: One view. TECHNIQUE: An AP view of the chest was obtained. RADIATION DOSE: NA LIMITATIONS: None. FINDINGS: LUNGS AND PLEURA: No consolidation, pleural effusion or pneumothorax. MEDIASTINUM AND HILAR STRUCTURES: No mediastinal or hilar contour abnormality. HEART AND VASCULAR STRUCTURES: The cardiac silhouette and pulmonary vasculature are within normal [place] its. BONES: No acute findings. HARDWARE: None in the chest. OTHER: No other finding. IMPRESSION: No acute cardiopulmonary process. TECHNICAL DOCUMENTATION: JOB ID: [id number] 2010 [employer]- All Rights Reserved Reading location - IP/workstation name: [email or web address]
--- NOTE | 2020-03-07 11:59 | ER Document Report ---
Entered by AYLEEN KEY SCRIBE 03/07/20 1107 Acting as scribe for:MAX STEINBERG MD ED Blood Pressure Problem - General Chief Complaint: Blood Pressure Problem Stated Complaint: BLOOD PRESSURE ISSUES,VOMITING Time Seen by Provider: 03/07/20 10:39 Information source: Patient Notes: This 35 year old homeless female patient presents to the emergency department from [facility] for hypertension. She was at [facility] for suicidal ideation. Her pressures are in the 140s systolic here. She reports she last drank EtOH yesterday but "just a can". Patient mentions that she had hypertension three years ago when and she does not know if it resolved after delivery or not. TRAVEL OUTSIDE OF THE [place] IN LAST 30 DAYS: No - Related Data Allergies/Adverse Reactions: No Known Allergies Allergy (Verified 04/19/18 12:36) Past Medical History - General Information source: Patient - Social History Smoking Status: Current Every Day Smoker Cigarette use (# per day): Yes - "1-5 cigarette/day" Frequency of alcohol use: Occasional Drug Abuse: None Lives with: Homeless Family History: Reviewed & Not Pertinent Musculoskeletal Medical History: Reports Hx Musculoskeletal Trauma Skin Medical History: Reports Hx Cellulitis Psychiatric Medical History: Reports: Hx Anxiety, Hx Attention Deficit Hyperactivity Disorder, Hx Post Traumatic Stress Disorder Traumatic Medical History: Reports: Hx Fractures - Arm Surgical Hx: Negative - Immunizations Immunizations up to date: Yes Review of Systems - Review of Systems Constitutional: No symptoms reported EENT: No symptoms reported Cardiovascular: See HPI, Other - elevated blood pressure Respiratory: No symptoms reported Gastrointestinal: No symptoms reported Genitourinary: No symptoms reported Female Genitourinary: No symptoms reported Musculoskeletal: No symptoms reported Skin: No symptoms reported Hematologic/Lymphatic: No symptoms reported Neurological/Psychological: No symptoms reported -: Yes All other systems reviewed and negative Physical Exam - Vital signs Vitals: Temp Pulse Resp BP Pulse Ox 98.3 F 94 20 164/136 H 98 03/07/20 05:47 03/07/20 05:47 03/07/20 05:47 03/07/20 05:47 03/07/20 05:47 - Notes Notes: Physical Exam: General: Alert, disheveled, malodorous. HEENT: Normocephalic. Atraumatic. PERRL. Extraocular movements intact. Oropharynx clear. Neck: Supple. Non-tender. Respiratory: No respiratory distress. Clear and equal breath sounds bilaterally. Cardiovascular: Regular rate and rhythm. Abdominal: Obese. Non-tender. No distension. Normal Bowel Sounds. Back: No gross abnormalities. Extremities: Moves all four extremities. Upper extremities: Normal inspection. Normal ROM. Lower extremities: Normal inspection. No edema. Normal ROM. Neurological: Normal cognition. AAOx4. Normal speech. Psychological: Flat affect. Skin: Warm. Dry. Normal color. Course - Re-evaluation Re-evalutation: 03/07/20 13:14 Patient's blood pressure came down to 123/100 after 10 mg of hydralazine IV. Reviewing prior visits, it appears the patient runs blood pressures up to the 150 range frequently over the past few years. At this time I will recommend that the patient start on lisinopril 10 mg daily and monitor her pressure for the next few days to see if adjustments are needed. - Vital Signs Vital signs: Temp Pulse Resp BP Pulse Ox 98.3 F 94 18 151/120 H 93 03/07/20 05:47 03/07/20 05:47 03/07/20 12:08 03/07/20 12:08 03/07/20 12:08 - Laboratory Result Diagrams: 03/07/20 08:57 03/07/20 08:57 Laboratory results interpreted by me: 03/07/20 03/07/20 08:57 08:57 RDW 15.1 H Sodium 136.9 L Potassium 3.5 L AST 62 H ALT 38 H - Diagnostic Test Radiology reviewed: Image reviewed, Reports reviewed - Chest x-ray does not show acute abnormalities. - EKG Interpretation by Me EKG shows normal: Sinus rhythm, [place], QRS Complexes. abnormal: Intervals - Prolonged QT interval, ST-T Waves - Nonspecific anterior T abnormalities Rate: Normal - 79 Rhythm: NSR [place]/QRS: Left axis deviation Discharge - Discharge Clinical Impression: Passive suicidal ideations, Medical clearance for psychiatric admission High blood pressure Qualifiers: Hypertension type: unspecified Qualified Code(s): I10 - Essential (primary) hypertension Depression Qualifiers: Depression Type: unspecified Qualified Code(s): F32.9 - Major depressive disorder, single episode, unspecified Condition: Stable Disposition: PSYCH HOSP/UNIT Additional Instructions: High Blood Pressure: When your blood pressure was taken today it was elevated. Pre-hypertension/Hypertension: The patient has been informed that they may have pre-hypertension or Hypertension based on a blood pressure reading in the emergency department. I recommend that the patient call the primary care provider listed on their discharge instructions or a physician of their choice this week to arrange follow up for further evaluation of possible pre- hypertension or Hypertension. Sometimes, stress or illness causes a temporary elevation of your blood pressure. We suggest that you get your blood pressure measured three more times during the next few days to see if this is more than a temporary abnormality. If your blood pressure is greater than 150/90 on each occasion, you must have treatment. Some simple things you can do to help are: If you have blood pressure medicine but aren't using it regularly, start taking it again. Get some aerobic exercise for at least 20 minutes on a daily basis. (See your doctor before beginning a new exercise program.) Eat a low-fat diet. Lose excess weight. Avoid salty foods and avoid adding salt to any of the foods you eat. Avoid diet pills, decongestants, "energizing" herbs, and other medicines that elevate blood pressure. If left untreated, hypertension greatly enhances your risk for developing heart disease and strokes. Please don't ignore this problem. Start taking lisinopril as prescribed. Monitor your blood pressure every day for the next several days to see if you will need medication adjustments. Follow-up with a local primary care provider. RETURN TO THE EMERGENCY ROOM IF ANY NEW OR WORSENING SYMPTOMS. Prescriptions: Lisinopril [Prinivil 10 mg Tablet] 10 mg PO DAILY #30 tablet I personally performed the services described in the documentation, reviewed and edited the documentation which was dictated to the scribe in my presence, and it accurately records my words and actions.
[2020-03-07] MEDS ORDERED: HYDRALAZINE HCL INJ/PF 20 MG/1 ML SDV IV ONE (12:02)
[2020-03-07 12:10] VITALS: BP 151/120
--- NOTE | 2020-03-07 20:54 | EKG REPORT ---
SEVERITY:- ABNORMAL ECG - SINUS RHYTHM BORDERLINE LEFT AXIS DEVIATION NONSPECIFIC T ABNORMALITIES, ANTERIOR LEADS PROLONGED QT INTERVAL : Confirmed by: Connie Steinberg 07-Mar-2020 20:53:40
== END 2020-03-07 13:39 ==
LOC: ER 05:40
DX: I10 Essential (primary) hypertension (principal); F32.9 Major depressive disorder, single episode, unspecified; R45.851 Suicidal ideations; F17.210 Nicotine dependence, cigarettes, uncomplicated; Z59.0 Homelessness
CPT/HCPCS: 93005; 99285; 96374; 36415; 82553; 82550; 84703; 85025; 80053; 84484; 71045; 93010; J0360

== ENCOUNTER 2020-06-05 00:01 | Emergency (ER) | payer SELFPAY ==
[2020-06-05 02:08] LABS: ABSOLUTE EOSINOPHILS # (AUTO) 0.1 10^3/uL (0.0-0.6); ABSOLUTE LYMPHOCYTES (AUTO) 2.3 10^3/uL (0.5-4.7); ABSOLUTE MONOCYTES (AUTO) 0.7 10^3/uL (0.1-1.4); ABSOLUTE NEUT (AUTO) 2.7 10^3/uL (1.7-8.2); BASOPHILS % (AUTO) 0.6 % (0-2); EOSINOPHILS % (AUTO) 1.8 % (0-6); HEMOGLOBIN 14.1 g/dL (12.0-15.5); LYMPHOCYTES % (AUTO) 39.8 % (13-45); MEAN CORPUSCULAR HEMOGLOBIN 30.5 pg (27.0-33.4); MEAN CORPUSCULAR HGB CONC 32.8 g/dL (32.0-36.0); MEAN CORPUSCULAR VOLUME 93 fl (80-97); MONOCYTES % (AUTO) 12.6 % (3-13); PLATELET COUNT 316 10^3/uL (150-450); RED BLOOD COUNT 4.62 10^6/uL (3.72-5.28); RED CELL DISTRIBUTION WIDTH 17.1 % (11.5-14.0); SEGMENTED NEUTROPHILS % (AUTO) 45.2 % (42-78); TOTAL CELLS COUNTED % (AUTO) 100 %; WHITE BLOOD COUNT 5.9 10^3/uL (4.0-10.5)
[2020-06-05 02:32] LABS: ALBUMIN 4.4 g/dL (3.5-5.0); ALKALINE PHOSPHATASE 124 U/L (38-126); ANION GAP 11 (5-19); ASPARTATE AMINO TRANSFERASE 89 U/L (14-36); BILIRUBIN,DIRECT 0.2 mg/dL (0.0-0.4); BLOOD UREA NITROGEN 7 mg/dL (7-20); CALCIUM 9.5 mg/dL (8.4-10.2); CARBON DIOXIDE 27 mmol/L (22-30); CHLORIDE 102 mmol/L (98-107); CREATINE KINASE 53 U/L (30-135); GLUCOSE 89 mg/dL (75-110); POTASSIUM 3.3 mmol/L (3.6-5.0)
[2020-06-05 02:43] LABS: CREATINE KINASE MB 0.54 ng/mL (<4.55)
[2020-06-05 02:44] LABS: TROPONIN I < 0.012 ng/mL
--- NOTE | 2020-06-05 05:03 | ER Document Report ---
ED Cardiac - General Chief Complaint: Irregular Pulse Stated Complaint: HEART POUNDING Time Seen by Provider: 06/05/20 04:58 Primary Care Provider: [facility] [Provider Group] - Follow up in 3-5 days [facility] [Provider Group] - Follow up in 3-5 days [facility] [Provider Group] - Follow up in 3-5 days HUMA SUN MD [ACTIVE STAFF] - Follow up in 3-5 days Notes: Patient is a 35-year-old female who presents to the emergency department presents emergency department with palpitations. Patient reports that she has had on and off palpitations for the past few years. She has not followed up with a [facility]er [facility]es in regards to this issue. Patient has a history of hypertension, but is not taking her blood pressure medication. Patient went [facility] prior to coming here to the emergency department for suicidal urges. Patient denies any suicidal urges during assessment. Patient also reports that she is having pain around her umbilical hernia site. States that s he is having bowel movements. Nurses notes report that patient is homeless. TRAVEL OUTSIDE OF THE [place] IN LAST 30 DAYS: No - Related Data Allergies/Adverse Reactions: No Known Allergies Allergy (Verified 04/19/18 12:36) Home Medications: bp meds and effexor have been lost Past Medical History - Social History Smoking Status: Current Every Day Smoker Family History: Reviewed & Not Pertinent Renal/ Medical History: Denies: Hx Peritoneal Dialysis Musculoskeletal Medical History: Reports Hx Musculoskeletal Trauma Skin Medical History: Reports Hx Cellulitis Psychiatric Medical History: Reports: Hx Anxiety, Hx Attention Deficit Hyperactivity Disorder, Hx Post Traumatic Stress Disorder Traumatic Medical History: Reports: Hx Fractures - Arm - Immunizations Immunizations up to date: Yes Review of Systems - Review of Systems Notes: REVIEW OF SYSTEMS: CONSTITUTIONAL : Denies recent illness. Denies recent unintentional weight loss. Denies fever, chills, or sweats. EENT: Denies eye, ear, throat, or mouth pain, discharge, or symptoms. Denies nasal or sinus congestion. CARDIOVASCULAR: See HPI. RESPIRATORY: Denies shortness of breath, cough, congestion, difficulty b reathing, or wheezing. GASTROINTESTINAL: Denies nausea, vomiting, and diarrhea. Denies constipation. See HPI. GENITOURINARY: Denies difficulty urinating, burning, blood in urine, urgency or frequency. MUSCULOSKELETAL: Denies neck and back pain. Denies joint pain or swelling. SKIN: Denies rash, itchiness, or lesions HEMATOLOGIC : Denies easy bruising or bleeding. LYMPHATIC: Denies swollen, painful, enlarged glands. NEUROLOGICAL: Denies no numbness or tingling denies weakness. Denies headache. Denies altered mental status. Denies alteration in speech. PSYCHIATRIC: Denies stress, anxiety, alteration in sleep patterns, or depression. All other systems reviewed and negative. Physical Exam - Vital signs Vitals: Temp Pulse Resp BP Pulse Ox 97.8 F 96 16 139/102 H 99 06/05/20 00:37 06/05/20 00:37 06/05/20 00:37 06/05/20 00:37 06/05/20 00:37 - Notes Notes: PHYSICAL EXAMINATION: GENERAL: Appears well, healthy, well-nourished, no acute distress. HEAD: Normocephalic, atraumatic. EYES: PERRL, conjunctiva normal, all extraocular movements intact, sclera nonicteric ENT: Moist mucous membranes. NECK: Supple, no noticeable swelling, redness, rash. Normal range of motion. LUNGS: Equal breath sounds bilaterally and clear to auscultation. No wheezes rales or rhonchi. CARDIOVASCULAR: S1-S2, regular rate, regular rhythm. Radial pulses 2+, normal. ABDOMEN: Normoactive bowel sounds. Soft, nontender, no guarding, no rebound tenderness, and no masses palpated. EXTREMITIES: Normal strength and range of motion, no pitting or edema. No cyanosis. NEUROLOGICAL: Moves all extremities upon command. Strength 5/5 in all extremities. PSYCH: Normal mood, normal affect. SKIN: Warm, dry. No rash, lesions, ulcerations noted. Normal skin turgor. Course - Re-evaluation Re-evalutation: Hematology is unremarkable. No leukocytosis or anemia noted. Chemistries show a potassium of 3.3, which was replaced here in the emergency department. EKG shows prolonged QT interval, which is most likely due to the patient's potassium of 3.3. AST and ALT are slightly elevated. Troponin is negative x2. Chest x- ray shows basilar atelectasis. Lung sounds are clear. I have a low suspicion for any life-threatening etiology at this time. Patient is in no distress. Abdominal exam is very benign and I do not appreciate an umbilical hernia on exam. Abdomen is nontender. No masses appreciated. Patient will help follow- up with general surgery. Blood pressure is elevated. We will get the patient back on her blood pressure medication, as she has not been on her blood pressure medication needs to be on it. Follow-up precautions were given. Verbal discharge instructions were given to the patient. They verbalized understanding. They are stable for discharge. - Vital Signs Vital signs: Temp Pulse Resp BP Pulse Ox 98.1 F 75 16 150/119 H 95 06/05/20 04:46 06/05/20 04:46 06/05/20 00:37 06/05/20 06:39 06/05/20 04:46 - Laboratory Results Result Diagrams: 06/05/20 01:48 06/05/20 01:48 Laboratory Results Interpreted: 06/05/20 06/05/20 01:48 01:48 RDW 17.1 H Potassium 3.3 L Creatinine 0.49 L AST 89 H ALT 70 H Critical Laboratory Results Reviewed: No Critical Results - Radiology Results Critical Radiology Results Reviewed: No Critical Results - EKG Interpretation by Me Additional EKG results interpreted by me: Sinus rhythm. Rate 83. NC 132. QRS 90; QT 460; QTc 541. No ST elevations or depressions noted. Discharge - Discharge Clinical Impression: Palpitations Umbilical hernia Qualifiers: Obstruction and gangrene presence: with gangrene Qualified Code(s): K42.1 - Umbilical hernia with gangrene Condition: Stable Disposition: HOME, SELF-CARE Additional Instructions: You were seen today in the emergency department for palpitations. Please get back on your blood pressure medication. Your potassium was also low here in the emergency department. You received pills to help with your potassium. Please follow-up with [facility] or [facility] in regards to this visit. Follow-up with the general surgeon and [facility]es in regards to your palpitations and umbilical hernia. Prescriptions: Lisinopril [Prinivil 10 mg Tablet] 10 mg PO DAILY #30 tablet Referrals: [facility] [Provider Group] - Follow up in 3-5 days [facility] [Provider Group] - Follow up in 3-5 days [facility] [Provider Group] - Follow up in 3-5 days HUMA SUN MD [ACTIVE STAFF] - Follow up in 3-5 days
--- NOTE | 2020-06-05 06:26 | RADIOLOGY REPORT (SQ) ---
CHEST X-RAY 1 VIEW on 06/05/2020 at 5:30 AM CLINICAL INDICATION: Palpitations COMPARISON: 03/07/2020 FINDINGS: There is minimal right basilar atelectasis. Lungs are otherwise clear. Heart is within normal limits for size. Pulmonary vascularity is within normal limits. IMPRESSION: No acute disease.
[2020-06-05] MEDS ORDERED: POTASSIUM CHLORIDE 10 MEQ TABLET.ER PO ONE (06:40)
[2020-06-05] MEDS ORDERED: HYDROCHLOROTHIAZIDE 25 MG TABLET PO ONE (06:40)
[2020-06-05] MEDS ORDERED: LISINOPRIL 10 MG TABLET PO ONE (06:46)
[2020-06-05 06:50] VITALS: BP 150/119
--- NOTE | 2020-06-05 21:23 | EKG REPORT ---
SEVERITY:- ABNORMAL ECG - SINUS RHYTHM LEFT VENTRICULAR HYPERTROPHY PROLONGED QT INTERVAL : Confirmed by: Maggie Lin MD 05-Jun-2020 21:23:28
== END 2020-06-05 07:05 | disposition home or self-care (01) ==
LOC: ER 00:01
DX: R00.2 Palpitations (principal); K42.1 Umbilical hernia with gangrene; R74.01 Elevation of levels of liver transaminase levels; R94.31 Abnormal electrocardiogram [ECG] [EKG]; I10 Essential (primary) hypertension; T50.906A Underdosing of unspecified drugs, medicaments and biological substances, initial encounter; F41.9 Anxiety disorder, unspecified; T43.216A Underdosing of selective serotonin and norepinephrine reuptake inhibitors, initial encounter; Z91.128 Patient's intentional underdosing of medication regimen for other reason; F17.200 Nicotine dependence, unspecified, uncomplicated
CPT/HCPCS: 36415; 71045; 80053; 82550; 82553; 84484; 85025; 93005; 93010; 99285